=== PATIENT | male | born 1945 | race Caucasian/White ===

== ENCOUNTER → 2020-05-03 | Outpatient (CLI) | payer MEDICARE, BC ==
--- NOTE | 2020-05-03 17:10 | XR ---
EXAMINATION TYPE: XR chest 2V DATE OF EXAM: 05/03/2020 CLINICAL HISTORY: R63.4 weight loss. TECHNIQUE: Frontal and lateral view of the chest. COMPARISON: None FINDINGS: Flattening of the hemidiaphragms and prominent lung volume. The cardiomediastinal silhoue tte is within normal limits for size. There is tortuous descending thoracic aorta and calcification o f the aortic knob. Pulmonary vasculature is normal. There is no focal air space opacity, pleural effu jarad, or pneumothorax seen. The osseous structures are intact. IMPRESSION: Emphysematous changes of the lungs.
== END | disposition home or self-care (01) ==
LOC: RADXRMAIN 13:59
PROVIDERS: ATTEND Internal Medicine
DX: J43.9 Emphysema, unspecified (principal)
CPT/HCPCS: 71046

== ENCOUNTER → 2020-06-29 | Outpatient (CLI) | payer MEDICARE, BC ==
--- NOTE | 2020-06-29 15:51 | US ---
EXAMINATION TYPE: US liver DATE OF EXAM: 06/29/2020 COMPARISON: NONE CLINICAL HISTORY: R94.5 Abnormal Liver function test. EXAM MEASUREMENTS: Liver Length: 18.8 cm Gallbladder Wall: 0.2 cm CBD: 0.6 cm Right Kidney: 9.8 x 3.7 x 4.9 cm Pancreas: Obscured by bowel gas Liver: Echogenic, enlarged Gallbladder: Hydropic, stones visualized Evidence for sonographic Josue's sign: No CBD: Measuring upper limits of normal Right Kidney: No hydronephrosis. Simple appearing Cyst measuring 1.1 x 1.2 x 1.1 cm IMPRESSION: 1. Cholelithiasis 2. Right renal cyst
== END | disposition home or self-care (01) ==
LOC: RADUSWWP 07:10
PROVIDERS: ATTEND Internal Medicine
DX: K80.20 Calculus of gallbladder without cholecystitis without obstruction (principal); N28.1 Cyst of kidney, acquired
CPT/HCPCS: 76705

== ENCOUNTER → 2020-07-20 | Outpatient (CLI) | payer MEDICARE, BC ==
--- NOTE | 2020-07-20 09:18 | NM ---
Nuclear medicine hepatobiliary scan. HISTORY: Pain. DOSAGE: The patient received 8 oz ensure plus and 5.1 mCi of Technetium 99m Choletec. FINDINGS: There is normal hepatic extraction. The gallbladder is seen by 20 minutes. There is bilia ry to bowel clearance by 20 minutes. Ejection fraction is 94%. IMPRESSION: 1. No evidence of cholecystitis. 2. Ejection fraction is 94% which can occasionally be seen with hyperdynamic gallbladder. Correlate c linically.
== END | disposition home or self-care (01) ==
LOC: RADNMMAIN 06:50
PROVIDERS: ATTEND Internal Medicine
DX: K80.00 Calculus of gallbladder with acute cholecystitis without obstruction (principal)
CPT/HCPCS: 78226; A9537

== ENCOUNTER → 2021-07-20 | Outpatient (CLI) | payer MEDICARE, BC ==
[2021-07-20 14:15] LABS: African American GFR (CKD) >90 (>60 ml/min/1.73 sqM); Blood Urea Nitrogen 17 mg/dL (9-20); Non-African American GFR(CKD) 89 (>60 ml/min/1.73 sqM)
--- NOTE | 2021-07-20 15:19 | CT ---
EXAMINATION TYPE: CT urogram wo/w con DATE OF EXAM: 07/20/2021 COMPARISON: None. HISTORY: Abnormal urine cytology. CT DLP: 1812 mGycm, Automated Exposure Control for Dose Reduction was Utilized. CONTRAST: CT scan of the abdomen and pelvis is performed without oral and without and with IV Contrast, patient injected with 100ml mL of Isovue 300. Urogram protocol with 3-D reconstructed images created on a in dependent workstation and reviewed. FINDINGS: KUB: There is a 5 mm calculus in the left kidney laterally upper to midpole level coronal image 38. N o right-sided nephrolithiasis. Postcontrast images show symmetric cortical uptake and excretion witho ut hydronephrosis seen bilaterally. There is simple appearing 1.3 cm thin-walled cyst posteriorly in the right kidney midpole level. Incomplete opacification of the right ureter. No obvious obstructing calculus bilaterally. Bladder shows adequate distention with wall thickening upper limits of normal a nteriorly. No intraluminal calculus. LUNG BASES: Mild posterior bibasilar linear scarring and/or atelectasis. Moderate to severe right atr ial dilatation is partially imaged. LIVER/GB: Gallbladder has distended margins and is abnormally dilated measuring over 10 cm in length there are dependent tiny calcified gallstones. There is no surrounding inflammatory change. Prominent right hepatic lobe and/or mild hepatomegaly. No biliary dilatation. PANCREAS: Moderate generalized fat replaced atrophy. SPLEEN: No significant abnormality is seen. ADRENALS: No significant abnormality is seen. BOWEL: Scattered colonic diverticulosis greatest the sigmoid colon level. No acute diverticulitis. No suspicious small or large bowel dilatation. PROSTATE/SEMINAL VESICLES: Normal size prostate with central calcifications. LYMPH NODES: No greater than 1cm abdominal or pelvic lymph nodes are appreciated. OSSEOUS STRUCTURES: Osseous structures are markedly demineralized. There is fixation hardware through healed fracture left proximal femur. Facet arthropathy lower lumbar levels. OTHER: Moderate calcified plaque of the aorta extends into branch vessels.. IMPRESSION: There is a 5 mm nonobstructing calculus in the left kidney upper to mid pole level.
== END | disposition home or self-care (01) ==
LOC: RADCTMAIN 13:22
PROVIDERS: ATTEND Internal Medicine
DX: N20.0 Calculus of kidney (principal); R82.89 Other abnormal findings on cytological and histological examination of urine
CPT/HCPCS: 82565; 84520; 74178; 36415; 74400; Q9967

== ENCOUNTER 2022-01-13 09:25 | Emergency (ER) | payer MEDICARE, BC ==
[2022-01-13 09:36] VITALS: BP 126/84; PULSE 104; RESP 18; TEMP 97.8
[2022-01-13] MEDS ORDERED: DIPH,PERTUS(ACELL)TETVAC-LF 0.5 ML VIAL IM ONE (09:56)
--- NOTE | 2022-01-13 09:59 | ED ---
General Adult HPI - General Chief complaint: Extremity Injury, Lower Stated complaint: Rt Leg Lacertion/Rt foot Edema Time Seen by Provider: 01/13/22 09:40 Source: patient, RN notes reviewed, old records reviewed Mode of arrival: ambulatory Limitations: no limitations - History of Present Illness Initial comments: This is a 76-year-old male presents emergency Department after he scraped his right lateral leg 4 days ago. Patient states he woke up this morning and noted his foot was swollen his leg and calf thigh area are not swollen at all. Patient states the wound appears to be healing fine though he does not have a tetanus shot. Patient states he doesn't want a splint swollen. When asked the patient if he's been wearing any Julius said he had a knee brace on the way down to his mid calf and just took it off recently. Patient is confident now that that is the cause of his foot swelling - Related Data Allergies Allergy/AdvReac Type Severity Reaction Status Date / Time No Known Allergies Allergy Verified 01/13/22 09:36 Review of Systems ROS Statement: Those systems with pertinent positive or pertinent negative responses have been documented in the HPI. ROS Other: All systems not noted in ROS Statement are negative. Past Medical History Past Medical History: No Reported History History of Any Multi-Drug Resistant Organisms: None Reported Past Surgical History: Appendectomy, Orthopedic Surgery Additional Past Surgical History / Comment(s): ortho- left femur Past Psychological History: No Psychological Hx Reported Smoking Status: Never smoker Past Alcohol Use History: None Reported Past Drug Use History: Marijuana General Exam - General Exam Comments Initial Comments: GENERAL Patient is well-developed and well-nourished. Patient is in mild distress. EYES Patient's pupils are equal and round. Extraocular motion is intact SKIN Patient has a superficial abrasion the lateral aspect of the lower leg it appears to be healing fine no signs of infection. NEURO The patient is alert and oriented 3 PYSCH Patient has normal interpersonal interactions. MUSCULOSKELETAL Patient has some mild swelling to the foot no swelling of the leg knee or thigh. Limitations: no limitations Course Vital Signs 01/13/22 09:30 Temperature 97.8 F Pulse Rate 104 H Respiratory 18 Rate Blood Pressure 126/84 O2 Sat by Pulse 99 Oximetry Disposition Clinical Impression: Superficial abrasion, Foot swelling Disposition: HOME SELF-CARE Condition: Good Instructions (If sedation given, give patient instructions): Abrasion (ED) Is patient prescribed a controlled substance at d/c from ED?: No Referrals: Rula Rodriguez MD [Primary Care Provider] - 1-2 days Time of Disposition: 09:58
== END 2022-01-13 10:16 | disposition home or self-care (01) ==
LOC: EC 09:25
DX: T14.8XXA Other injury of unspecified body region, initial encounter (principal); M79.89 Other specified soft tissue disorders; F12.90 Cannabis use, unspecified, uncomplicated
CPT/HCPCS: 90471; 90715; 99283

== ENCOUNTER → 2022-02-26 | Outpatient (CLI) | payer MEDICARE, BC ==
--- NOTE | 2022-02-26 10:56 | XR ---
Left shoulder HISTORY: Chronic pain 3 views of left shoulder Bone mineralization is reduced. There is arthropathy at the glenohumeral joint, acromion clavicular j oint. Alignment is maintained. Left lung apex as visualized is normal. Aorta is dense. There may be d istal acromial spur. IMPRESSION: Osteoarthritic changes of the left shoulder. Correlate for possible impingement.
== END | disposition home or self-care (01) ==
LOC: RADXRMAIN 10:34
PROVIDERS: ATTEND Internal Medicine
DX: M77.8 Other enthesopathies, not elsewhere classified (principal)

== ENCOUNTER → 2023-07-03 | Outpatient (CLI) | payer MEDICARE, BC ==
--- NOTE | 2023-07-03 11:25 | XR ---
EXAMINATION TYPE: XR femur LT, XR knee complete LT DATE OF EXAM: 07/03/2023 11:12 AM CLINICAL INDICATION:Male, 77 years old with history of M893.8X5 PAIN LT FEMUR; COMPARISON: None TECHNIQUE: XR femur LT, XR knee complete LT examined in Frontal and lateral projections. FINDINGS: Curvilinear lucency through the lateral aspect of the knee involving the tibial plateau. Th ere Intramedullary mariluz in the left femur which appears intact. Degeneration changes of the knee and h ip which are demonstrate joint space narrowing and osteophyte formation. Severe atherosclerosis of th e arterial vasculature. IMPRESSION: 1. Left lateral tibial plateau curve curvilinear lucency which could represent nondisplaced fracture . CT imaging of the knee is recommended. 2. The left femur fixation rods. .
--- NOTE | 2023-07-03 12:08 | XR ---
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 TECHNIQUE: XR lumbar spine with bend/flex - Frontal, lateral and coned in L5-S1 lateral views of the spine. FINDINGS: No evidence of any acute osseous pathology. No evidence of loss of vertebral body height i s seen. There is normal alignment of the lumbar vertebral bodies. Mild scattered disc space narrowing . Multilevel marginal osteophyte formation throughout the visualized spine. There is facet joint arth ropathy throughout the spine. Scattered at least mild neural foraminal stenosis. Moderate this course of the arterial vasculature. Multiple gallstones project in the gallbladder lumen. IMPRESSION: 1. No acute fracture. 2. Moderate multilevel disc degeneration.
--- NOTE | 2023-07-03 12:15 | US ---
EXAMINATION TYPE: US arterial LE single level DATE OF EXAM: 07/03/2023 10:48 AM CLINICAL INDICATION: Male, 77 years old with history of I73.9 PERIPHERAL VASCULAR DISEASE, UNSPECIFIE D; Left leg pain History of: Smoker: no Hypertension: yes Diabetic: no Hyperlipidemia: no TIA/CVA: no Previous Vascular Surgery: no [place]: no Vascular Ulcers: no Claudication: no Gangrene: no Doppler Waveforms: Right: Multiphasic Left: Multiphasic Right Brachial Pressure: 146 Left Brachial Pressure: 142 Ankle-Brachial Indices: Right: 1.12 Left: 1.10 Toe Brachial Indices: Right: 0.49 Left: 0.53 IMPRESSION: Severe bilateral peripheral vascular disease by toe brachial index. 1. Ankle-brachial indices are within normal limits.
== END | disposition home or self-care (01) ==
LOC: RADUSWWP 10:18
PROVIDERS: ATTEND Internal Medicine
DX: M51.36 Other intervertebral disc degeneration, lumbar region (principal); M89.8X5 Other specified disorders of bone, thigh; I73.9 Peripheral vascular disease, unspecified; M47.816 Spondylosis without myelopathy or radiculopathy, lumbar region
CPT/HCPCS: 72114; 93922

== ENCOUNTER → 2023-07-18 | Outpatient (CLI) | payer MEDICARE, BC ==
--- NOTE | 2023-07-18 16:45 | CT ---
EXAMINATION TYPE: CT femur LT wo con CT DLP: 1669.1 mGycm, Automated exposure control for dose reduction was used. DATE OF EXAM: 07/18/2023 3:44 PM COMPARISON: . Extremity radiograph 07/03/2023 CLINICAL INDICATION:Male, 77 years old with history of M89.8X5 OTHER SPECIFIED DISORDERS OF BONE, THI GH; PHH, Chronic left femur pain, fx x 20+years TECHNIQUE: Axial images were obtained of the CT femur LT wo con, Additional coronal and sagittal refo rmatted images and soft tissue and bone window were obtained for review. 3-D reconstruction was creat ed on a separate workstation. Contrast used: mL of , (None if empty) Oral contrast used: (None if empty) FINDINGS: Left hip arthroplasty changes with fixation screw in appropriate position. There is degener ation changes of the left hip. Intramedullary mariluz is also present. There is no evidence of fracture. Curvilinear lucency within the tibial plateau on prior 07/03/2023 radiograph is not confirmed on CT imaging suggesting artifact and/or osseous demineralization change. There is diffuse osseous deminera lization. Scattered colonic diverticula are present. Mild osteophyte formation acetabulum which is pr esent. Severe atherosclerotic arteriovascular. There is degeneration changes at the knee with osteoph yte formation and joint space tearing. Cystic change in the tibial plateau. IMPRESSION: 1. Post fixation changes to the left femur. Hardware appears intact. No evidence of fracture. Diffus e osseous demineralization. 2. Mild left hepatic steatosis. 3. Tibial plateau cystic changes which could be further evaluated with MRI if not be performed. 4. Curvilinear lucency within the tibial plateau and prior 07/03/2023 radiograph is not definitely co nfirmed on CT imaging. Correlate with point tenderness.
== END | disposition home or self-care (01) ==
LOC: RADCTMAIN 14:52
PROVIDERS: ATTEND Internal Medicine
DX: M89.8X5 Other specified disorders of bone, thigh (principal); K76.0 Fatty (change of) liver, not elsewhere classified

== ENCOUNTER → 2023-08-02 | Outpatient (CLI) | payer MEDICARE, BC ==
--- NOTE | 2023-08-04 15:30 | MR ---
EXAMINATION TYPE: MR lumbar spine wo con DATE OF EXAM: 08/02/2023 COMPARISON: None HISTORY: 78-year-old male M54.50, Lower back pain, into left thigh. TECHNIQUE: Multiplanar, multisequence images of the lumbar spine were acquired without IV contrast. FINDINGS: * Nonspecific distention of the cisterna chyli. * 2.0 cm cortical cyst posterior right kidney. * Ectatic upper abdominal aorta 2.6 cm. * Mildly aneurysmal lower abdominal aorta at 3.1 cm. * There is a markedly hydropic gallbladder measuring up to 5.2 cm wide. Vertebral body heights are preserved and alignment is maintained. Heterogeneous marrow signal suggests prominent red marrow hyperplasia. Additional scattered fatty mat caitlyn hemangioma such as that L2, L3, and S1 vertebral bodies. Conus medullaris is normal. Scattered [id number] degenerative disc disease with desiccated disks in variable disc space oli rowing. Minimal bulging discs are also present. Posterior annular fissure noted at L1-L2 and L2-L3. No large focal disc herniation or significant spinal canal stenosis. Scattered mild facet degenerative change. On the right, changes result in mild neuroforaminal narrowing L1-S1 levels. On the left, changes result in mild neuroforaminal narrowing at L1-L2. Intraforaminal disc bulge at L 4-L5 may abut the traversing left L5 nerve root at this level. IMPRESSION: 1. No large focal disc herniation or significant spinal canal stenosis. Mild to moderate multilevel d egenerative disc disease is present. Small posterior annular fissures at L1-L2 and L2-L3. 2. Variable mild neuroforaminal narrowing as outlined above. An intraforaminal disc bulge at L4-L5 on the left may abut the traversing left L5 nerve root.
== END | disposition home or self-care (01) ==
LOC: RADMRIMAIN 11:19
PROVIDERS: ATTEND Orthopaedic Surgery
DX: M54.50 Low back pain, unspecified (principal); M51.36 Other intervertebral disc degeneration, lumbar region; M48.061 Spinal stenosis, lumbar region without neurogenic claudication
CPT/HCPCS: 72148

== ENCOUNTER → 2023-08-15 | Outpatient (CLI) | payer MEDICARE, BC ==
[2023-08-15 09:04] VITALS: BP 156/92; PULSE 99; RESP 15; TEMP 98.5
--- NOTE | 2023-08-15 12:30 | P.PAINPG ---
PQRS Measure Charge Sheet Comment: HISTORY OF PRESENT ILLNESS: A 78 yr old male as a referral from Dr Rodriguez presents today w severe and chronic LBP > 10 yrs secondary to DDD, spondylosis and facet arthropathy without myelopathy for evaluation. Pt states pain level is provoked at 1 /10 in intensity, constant, localized in the lower lumbar spine, predominantly axial, achy in character w occasional shooting pain towards the LEs. Pain is provoked by bending, lifting. Pain is alleviated by medications, repositioning and rest. PMH: OA, HTN, aFib, Hyperlipidemia, MDD PSH: Appendectomy (1959), L Femur ORIF (2011), LUE ORIF (2011), Colonoscopy (2014) SH: No tobacco use, No ETOH abuse, Cannabis use. Oldest of 16 siblings. FH: Fa- CHF/ age 55. Mo- Pancreatic CA/ age 54. All: See list Meds: See list REVIEW OF ORGAN SYSTEMS: CONSTITUTIONAL: No fevers or chills. No recent weight loss. NEUROLOGICAL: + numbness and tingling along the distal extremities. No seizure disorders or headaches. MUSCULOSKELETAL: + pain PSYCHIATRIC: Denies current depression or suicidal thoughts. Physical Examinations : Constitutional : Cooperative , not in acute distress . Neurologic : Cranial nerve II to XII intact. No focal neurological deficits. Psychiatric : alert & oriented x 3. Matching mood & appropriate affect. Judgment & insight intact. Musculoskeletal : Cervical Spine Motor strength in the deltoid and biceps: Normal right side. Normal Left side Motor strength biceps and the wrist extensors: Normal right side . Normal left side Motor strength in the triceps muscle: Normal right side. Normal left side Deep tendon reflexes: Normal at the biceps. Normal at Brachioradialis. Normal at triceps Vertebral body tenderness to deep palpation over Cervical facet loading test: positive bilaterally Spurling test: positive bilaterally Neck distraction test: positive bilaterally Kay sign: positive bilaterally Lumbar spine Motor strength lower extremities ,thigh and legs 5/5 Right side , 5/5 Left side Deep tendon reflexes : Normal Knee Jerk. Normal Ankle Jerk Vertebral body tenderness over L4 Cast Test positive Lumbar facet Loading Test: positive Right / positive Left Range of motion of the lumbar spine Flexion 30 degrees, extension 10 degrees Straight Leg Raise test: Left/ Right positive at degree Jass test: positive right / positive left. Severe tenderness over the Sacroiliac joint on the Right / Left sides Gaenslen test: positive bilaterally Seated flexion test: positive bilaterally. Sacral spine : Severe tenderness over the Sacroiliac joint: right side / left side Range of motion: Flexion of the lumbar spine <60 degrees Range of motion: Extension of the lumbar spine <20 degrees Gaenslen's Test positive Jass test: positive right side / left side Thigh Thrust Test Sacral Thrust Test Imaging: Noncontrast of the lumbar spine from 08/02/2023 reviewed Assessment/ Plan : L4-L5 Disc Bulge Will manage residual pain and may RTC on an as needed basis. All questions answered. I have spent greater than 30 minutes on patient care today. Dr Pinto was available by phone for the evaluation of this patient. The time was used to review the medical records including relevant urine studies and Prescription history (MAPs), review of the available imaging, evaluation and examination of the patient, coordination of care with the medical staff and if applicable referring physicians, as well as creation of the medical record Controlled Substance Measures - Controlled Substance Measures Is patient prescribed a controlled substance at discharge?: No
== END ==
LOC: PNWHC3 08:21
PROVIDERS: ATTEND Specialist
DX: M48.061 Spinal stenosis, lumbar region without neurogenic claudication (principal); M51.36 Other intervertebral disc degeneration, lumbar region; M47.816 Spondylosis without myelopathy or radiculopathy, lumbar region; G89.29 Other chronic pain; M51.26 Other intervertebral disc displacement, lumbar region; M19.90 Unspecified osteoarthritis, unspecified site; I10 Essential (primary) hypertension; I48.91 Unspecified atrial fibrillation; E78.5 Hyperlipidemia, unspecified; F32.9 Major depressive disorder, single episode, unspecified; F12.90 Cannabis use, unspecified, uncomplicated
CPT/HCPCS: 99211

== ENCOUNTER 2023-11-01 11:47 | Emergency (ER) | payer MEDICARE, BC ==
[2023-11-01] MEDS: DIPH,PERTUS(ACELL)TETVAC-LF 0.5 ML VIAL IM ONE (12:38)
[2023-11-01 13:00] VITALS: RESP 18
[2023-11-01] MEDS: LIDOCAINE 1% INJ 10MG/ML (20 ML MDV) SQ ONE (13:06)
[2023-11-01] MEDS: ACETAMINOPHEN TAB 325 MG TAB PO STA (13:10)
--- NOTE | 2023-11-01 13:46 | ED ---
Animal Bite HPI - General Chief Complaint: Animal Bite Stated Complaint: Dog Bite Time Seen by Provider: 11/01/23 13:44 Source: patient, family, RN notes reviewed Mode of arrival: EMS Limitations: no limitations - History of Present Illness Initial Comments: 78-year-old male presented to the ER with a chief complaint of dog bite. Patient reports he was walking at a nearby park and walked by a woman with 2 dogs. He reports when passing the woman the [place] malinois bit his right calf. He denies any limited range of motion or paresthesias. He denies any other injuries or complaints. Patient does take Eliquis. Tetanus status unknown. - Related Data Home Medications Medication Instructions Recorded Confirmed Apixaban [Eliquis] 5 mg PO BID 11/01/23 11/01/23 Atorvastatin [Lipitor] 40 mg PO DAILY 11/01/23 11/01/23 Metoprolol Succinate (ER) [Toprol 25 mg PO DAILY 11/01/23 11/01/23 Xl] Previous Rx's Medication Instructions Recorded Amoxic-Pot Clav 875-125Mg 1 tab PO Q12HR #20 tab 11/01/23 [Augmentin 875-125] Allergies Allergy/AdvReac Type Severity Reaction Status Date / Time No Known Allergies Allergy Verified 11/01/23 13:47 Review of Systems ROS Statement: Those systems with pertinent positive or pertinent negative responses have been documented in the HPI. ROS Other: All systems not noted in ROS Statement are negative. Past Medical History Past Medical History: No Reported History History of Any Multi-Drug Resistant Organisms: None Reported Past Surgical History: Appendectomy, Orthopedic Surgery Additional Past Surgical History / Comment(s): ortho- left femur Past Psychological History: No Psychological Hx Reported Smoking Status: Never smoker Past Alcohol Use History: None Reported Past Drug Use History: Marijuana General Exam Limitations: no limitations General appearance: alert, in no apparent distress Head exam: Present: atraumatic, normocephalic, normal inspection Respiratory exam: Present: normal lung sounds bilaterally. Absent: respiratory distress, wheezes, rales, rhonchi, stridor Cardiovascular Exam: Present: regular rate, normal rhythm, normal heart sounds. Absent: systolic murmur, diastolic murmur, rubs, gallop, clicks Extremities exam: Present: normal inspection, full ROM, normal capillary refill. Absent: tenderness, pedal edema, joint swelling, calf tenderness Neurological exam: Present: alert, oriented X3, CN II-XII intact Skin exam: Present: warm, dry, normal color, other (4 x 3 wound to lateral right calf. minimal active bleeding. Muscle and fascia exposed but intact. Patient has full active range of motion of ankle and digits. 2+ right dorsalis pedis pulse. Sensation intact.) Course Vital Signs 11/01/23 11/01/23 11:52 14:30 Temperature 98.1 F Pulse Rate 100 89 Respiratory 18 18 Rate Blood Pressure 160/101 145/89 O2 Sat by Pulse 99 99 Oximetry - Reevaluation(s) Reevaluation #1: 11/01/23 12:[address] Castillo, destination specialist general surgeon, who advised on consulting orthopedics. 11/01/23 12:[address] Rivera, destination specialist orthopedics, who advised on loose closure with 5 sutures approximating skin to muscle. He recommended to keep wound open and close follow-up outpatient. Procedures - Laceration Laceration #1 Consent Obtained: verbal consent Indication: laceration Site: lower extremity Size (cm): 4 (4 x 3 bite wound ) Description: avulsion Anesthetic Used: lidocaine 1% Anesthesia Technique: local infiltration Amount (mls): 10 Pre-repair: wound explored, irrigated extensively, deep structures intact Type of Sutures: vicryl Size of Sutures: 3-0 Number of Sutures: 5 Technique: simple, interrupted Patient Tolerated Procedure: well, no complications Additional Comments: wound approximated per Dr. Rivera's instruction. Medical Decision Making - Medical Decision Making Was pt. sent in by a medical professional or institution (, PA, QUALITATIVE RESEARCHER, urgent care, hospital, or snf...) When possible be specific @ -No Did you speak to anyone other than the patient for history (EMS, parent, family, police, friend...)? What history was obtained from this source @ -Police aiding with HPI. Did you review nursing and triage notes (agree or disagree)? Why? @ -I reviewed and agree with nursing and triage notes Were old charts reviewed (outside hosp., previous admission, EMS record, old EKG, old radiological studies, urgent care reports/EKG's, snf records)? Report findings @ -No old charts were reviewed Differential Diagnosis (chest pain, altered mental status, abdominal pain women, abdominal pain men, vaginal bleeding, weakness, fever, dyspnea, syncope, headache, dizziness, GI bleed, back pain, seizure, CVA, palpatations, mental health, musculoskeletal)? @ -Differential Musculoskeletal: Muscular strain, contusion, ligament sprain, fracture, arthritis, septic arthritis, bursitis, cellulitis, muscle spasm, nerve compression, DVT, arterial occlusion, herpes zoster, electrolyte abnormality, tumor.... This is not meant to be in all inclusive list EKG interpreted by me (3pts min.). @ -None X-rays interpreted by me (1pt min.). @ -None done CT interpreted by me (1pt min.). @ -None done U/S interpreted by me (1pt. min.). @ -None done What testing was considered but not performed or refused? (CT, X-rays, U/S, labs)? Why? @ -None What meds were considered but not given or refused? Why? @ -None Did you discuss the management of the patient with other professionals (professionals i.e. , PA, QUALITATIVE RESEARCHER, lab, RT, psych nurse, psychiatric social worker, negative restorer, teacher, [employer] revenue officer, porter sample case)? Give summary @ -Yes, case discussed with Dr. Castillo, on-call general surgery, who advised an orthopedic consult. I also discussed this case with Dr. Rivera, on-call orthopedic, who advised on loose approximation with 5 sutures and to keep wound open. He recommended outpatient follow-up next week. Was smoking cessation discussed for >3mins.? @ -No Was critical care preformed (if so, how long)? @ -No Were there social determinants of health that impacted care today? How? (Homelessness, low income, unemployed, alcoholism, drug addiction, transportation, low edu. Level, literacy, decrease access to med. care, custodial, rehab)? @ -No Was there de-escalation of care discussed even if they declined (Discuss DNR or withdrawal of care, Hospice)? DNR status @ -No What co-morbidities impacted this encounter? (DM, HTN, Smoking, COPD, CAD, Cancer, CVA, ARF, Chemo, Hep., AIDS, mental health diagnosis, sleep apnea, morbid obesity)? @ -On Eliquis Was patient admitted / discharged? Hospital course, mention meds given and rou te, prescriptions, significant lab abnormalities, going to OR and other pertinent info. @ -Discharge. 78 year old male presenting to the ER via EMS with a chief complaint of a dog bite. History and physical exam completed. Vitals stable. Patient no signs of acute distress and nontoxic-appearing. There was a 4 x 3 wound to right lateral calf. Minimal active bleeding. Fascia and muscle expose d but appear to be intact. Patient has full active range of motion of ankle and digits. Right lower extremity neurovascular intact. He denied any other injuries or complaints. I discussed this case with Dr. Rivera, destination specialist orthopedics, who advised on loose approximation with 5 sutures and to keep wound open to prevent infection. Wound intensively irrigated with iodine and sterile saline. Wound edges approximated and sutured to exposed muscle using 5 simple interrupted sutures, per Dr. Rivera. Wound dressed with Adaptic, 4 x 4's in a compressive dressing. Tetanus updated. Patient will be started on Augmentin. I instructed patient to keep dressing in placed for 48 hours and to follow-up with orthopedics as soon as possible. Strict return parameters discussed at length. Patient discharged in stable condition with follow-up to orthopedics, referral given. Patient and verbally expressed understanding and agreement with care plan. Case discussed with ED attending, Dr. Helms. Undiagnosed new problem with uncertain prognosis? @ -No Drug Therapy requiring intensive monitoring for toxicity (Heparin, Nitro, Insulin, Cardizem)? @ -No Were any procedures done? @ -No Diagnosis/symptom? @ -Dog bite Acute, or Chronic, or Acute on Chronic? @ -Acute Uncomplicated (without systemic symptoms) or Complicated (systemic symptoms)? @ -Uncomplicated Side effects of treatment? @ -No Exacerbation, Progression, or Severe Exacerbation? @ -No Poses a threat to life or bodily function? How? (Chest pain, [place], [place], pneumonia, PE, COPD, DKA, ARF, appy, cholecystitis, CVA, Diverticulitis, Homicidal, Suicidal, threat to staff... and all critical care pts) @ -Low likelihood Disposition Clinical Impression: Dog bite Disposition: HOME SELF-CARE Condition: Stable Instructions (If sedation given, give patient instructions): Animal Bite (ED) Additional Instructions: Please leave bandage in place for 48 hours. Do not shower until after first dressing change. Complete full course of Augmentin. Follow-up with Dr. Rivera early next week. Return to the ER for any new or worsening concerns. Prescriptions: Amoxic-Pot Clav 875-125Mg [Augmentin 875-125] 1 tab PO Q12HR #20 tab Is patient prescribed a controlled substance at d/c from ED?: No Referrals: Rula Rodriguez MD [Primary Care Provider] - 1-2 days Jay Rivera DO [Doctor of Osteopathic Medicine] - 1-2 days Time of Disposition: 13:45
[2023-11-01 14:59] VITALS: BP 145/89; PULSE 89; TEMP 98.1
== END 2023-11-01 15:10 | disposition home or self-care (01) ==
LOC: EC 11:47
DX: S81.851A Open bite, right lower leg, initial encounter (principal); Z23 Encounter for immunization; Z79.01 Long term (current) use of anticoagulants; W54.0XXA Bitten by dog, initial encounter; Y92.830 Public park as the place of occurrence of the external cause; Y93.01 Activity, walking, marching and hiking
CPT/HCPCS: 90715; 12002; 90471; 99284; J2001

== ENCOUNTER 2023-11-09 16:11 | Inpatient (IN) | payer MEDICARE, BC ==
--- NOTE | 2023-11-09 17:10 | ED ---
Fall HPI - General Chief Complaint: Fall Stated Complaint: FALL Time Seen by Provider: 11/09/23 16:18 Source: patient, EMS Mode of arrival: EMS - History of Present Illness Initial Comments: 78-year-old male presenting to the ED status post fall. Patient is on Eliquis. Patient states that he stood up from his chair and was attempting to use his walker and walker caught the edge of the carpet causing him to fall/onto his left side. Fell onto the couch and then onto the carpet reporting that the brunt of the fall was a sore by his left shoulder. Unsure if he hit his head at this time. However denies LOC. Now notes pain of the left shoulder and left hip/left leg. Of note, patient seen here approximately a week ago due to a right calf dog bite. Has been taking antibiotics for this and is seeing wound care for this. Also is following up with surgery on Saturday secondary to this. Denies increasing pain of the right calf. Denies fever or chills. Denies any preceding chest pain, shortness of breath, dizziness prior to the fall. At this time has no other complaints other than the pain to his left shoulder and left hip/leg. - Related Data Home Medications Medication Instructions Recorded Confirmed Apixaban [Eliquis] 5 mg PO DAILY 11/01/23 11/09/23 Atorvastatin [Lipitor] 40 mg PO DAILY 11/01/23 11/09/23 Metoprolol Succinate (ER) [Toprol 25 mg PO DAILY 11/01/23 11/09/23 Xl] Previous Rx's Medication Instructions Recorded Amoxic-Pot Clav 875-125Mg 1 tab PO Q12HR #20 tab 11/01/23 [Augmentin 875-125] Allergies Allergy/AdvReac Type Severity Reaction Status Date / Time No Known Allergies Allergy Verified 11/09/23 19:41 Review of Systems ROS Statement: Those systems with pertinent positive or pertinent negative responses have been documented in the HPI. ROS Other: All systems not noted in ROS Statement are negative. Past Medical History Past Medical History: No Reported History History of Any Multi-Drug Resistant Organisms: None Reported Past Surgical History: Appendectomy, Orthopedic Surgery Additional Past Surgical History / Comment(s): ortho- left femur Past Psychological History: No Psychological Hx Reported Smoking Status: Never smoker Past Alcohol Use History: None Reported Past Drug Use History: Marijuana General Exam General appearance: alert, in no apparent distress Head exam: Present: atraumatic, normocephalic, other (No schmitt signs or raccoon's eyes.) Eye exam: Present: normal appearance, PERRL, EOMI Neck exam: Present: normal inspection Respiratory exam: Present: normal lung sounds bilaterally Cardiovascular Exam: Present: regular rate GI/Abdominal exam: Present: soft. Absent: distended, tenderness, guarding, rebound, rigid, normal bowel sounds Extremities exam: Present: tenderness (Right calf is dressed. Upon removing dressing there is a well-healing wound with no surrounding warmth, erythema.), other (Pain to palpation over the left shoulder however no crepitus, step-off, or obvious deformity. Pelvis stable upon rocking. To palpation over the mid left leg. No obvious step-off, deformity. Radial pulses/DP/PT pulses intact bilaterally.) Back exam: Present: normal inspection, other (No midline spinal tenderness to palpation.) Neurological exam: Present: alert, oriented X3 Skin exam: Present: warm, dry Course Vital Signs 11/09/23 16:37 Temperature 97.4 F L Pulse Rate 86 Respiratory 16 Rate Blood Pressure 123/84 O2 Sat by Pulse 98 Oximetry Medical Decision Making - Medical Decision Making Was pt. sent in by a medical professional or institution ([facility] [place], KILN PACKER, urgent care, hospital, or snf...) When possible be specific @ -No Did you speak to anyone other than the patient for history (EMS, parent, family, police, friend...)? What history was obtained from this source @ -No Did you review nursing and triage notes (agree or disagree)? Why? @ -I reviewed and agree with nursing and triage notes Were old charts reviewed (outside hosp., previous admission, EMS record, old EKG, old radiological studies, urgent care reports/EKG's, snf records)? Report findings @ -Prior chart reviewed. For further details please see HPI. Differential Diagnosis (chest pain, altered mental status, abdominal pain women, abdominal pain men, vaginal bleeding, weakness, fever, dyspnea, syncope, headache, dizziness, GI bleed, back pain, seizure, CVA, palpatations, mental health, musculoskeletal)? @ -Differential Musculoskeletal Muscular strain, contusion, ligament sprain, fracture, arthritis, septic arthritis, bursitis, cellulitis, muscle spasm, nerve compression, DVT, arterial occlusion, herpes zoster, electrolyte abnormality, tumor.... This is not meant to be in all inclusive list EKG interpreted by me (3pts min.). @ -None X-rays interpreted by me (1pt min.). @ -X-ray of the pelvis and femur interpreted by me. X-ray of the of the pelvis reveals no evidence of acute finding. X-ray of the femur shows a left hip intact with intramedullary mariluz and dynamic compression screws in the proximal femur which appears similar to prior. However distally there is an oblique minimally displaced fracture lucency of the mid to distal femoral shaft which is new. The site of this fracture is transverse by the long intramedullary mariluz which began in the proximal femur. Hardware appears intact. X-ray of the chest and shoulder pending. CT interpreted by me (1pt min.). @ -CT brain and cervical spine interpreted me which revealed no evidence of acute finding. U/S interpreted by me (1pt. min.). @ -None done What testing was considered but not performed or refused? (CT, X-rays, U/S, labs)? Why? @ -None What meds were considered but not given or refused? Why? @ -None Did you discuss the management of the patient with other professionals (professionals i.e. , PA, KILN PACKER, lab, RT, psych nurse, public health social worker, hair sample matcher, teacher, disability hearing officer, case advocate)? Give summary @ -Case discussed with Dr. Jackson of orthopedics who advises knee immobilizer and shoulder sling and will see the patient tomorrow. Was smoking cessation discussed for >3mins.? @ -No Was critical care preformed (if so, how long)? @ -No Were there social determinants of health that impacted care today? How? (Homelessness, low income, unemployed, alcoholism, drug addiction, dickinson sportation, low edu. Level, literacy, decrease access to med. care, long term, rehab)? @ -No Was there de-escalation of care discussed even if they declined (Discuss DNR or withdrawal of care, Hospice)? DNR status @ -No What co-morbidities impacted this encounter? (DM, HTN, Smoking, COPD, CAD, Cancer, CVA, ARF, Chemo, Hep., AIDS, mental health diagnosis, sleep apnea, morbid obesity)? @ -None Was patient admitted / discharged? Hospital course, mention meds given and route, prescriptions, significant lab abnormalities, going to OR and other pertinent info. @ -Admission 78-year-old male presented to the ED status post mechanical fall on Eliquis. Imaging studies reviewed. CT brain and cervical spine revealed no evidence of acute finding. X-ray is significant for a fracture of the distal femur. Case discussed with orthopedics. Patient will be admitted with knee immobilizer and shoulder sling. Plan of care discussed with patient and family who are in agreement. Undiagnosed new problem with uncertain prognosis? @ -No Drug Therapy requiring intensive monitoring for toxicity (Heparin, Nitro, Insulin, Cardizem)? @ -No Were any procedures done? @ -No Diagnosis/symptom? @ -Status post mechanical fall, distal femur fracture Acute, or Chronic, or Acute on Chronic? @ -Acute Uncomplicated (without systemic symptoms) or Complicated (systemic symptoms)? @ -Uncomplicated Side effects of treatment? @ -No Exacerbation, Progression, or Severe Exacerbation? @ -No Poses a threat to life or bodily function? How? (Chest pain, [place], [place], pneumonia, PE, COPD, DKA, ARF, appy, cholecystitis, CVA, Diverticulitis, Homicidal, Suicidal, threat to staff... and all critical care pts) @ -Unlikely at this time Disposition Clinical Impression: Femoral distal fracture Disposition: ADMITTED IP TO THIS [facility] Condition: Good Referrals: Rula Rodriguez MD [Primary Care Provider] - 1-2 days Time of Disposition: 21:16
[2023-11-09] MEDS: ACETAMINOPHEN TAB 500 MG TAB PO STA (18:17)
[2023-11-09] MEDS: HYDROmorphone 0.5 MG/0.5 ML SYRINGE IM STA (18:19)
--- NOTE | 2023-11-09 18:22 | CT ---
EXAMINATION TYPE: CT brain leola wo con DATE OF EXAM: 11/09/2023 COMPARISON: None HISTORY: FELL/ ON THINNERS CT DLP: 1289.1 mGycm, Automated exposure control for dose reduction was used. CONTRAST: Patient injected with 0 mL of Isovue 300. CT of the brain is performed utilizing 3 mm thick sections through the posterior fossa and 3 mm thick sections through the remaining calvarium. Study is performed within 24 hours of arrival to the hospital. No abnormal hyperdensity is present to suggest an acute intracranial hemorrhage. No mass lesion is evident. No acute infarcts are evident. There are scattered. Ventricular white matter hypodensities, likely o n the basis of chronic white matter ischemic change. Ventricles and sulci are prominent for the patient age. Paranasal sinuses and mastoid air cells within the [id number] are clear. IMPRESSIONS: 1. Atrophy with mild chronic periventricular white matter ischemic type changes. 2. No acute intracranial process. Follow-up MRI can be performed as clinically indicated. CT cervical spine. COMPARISON: None CT of the cervical spine is performed in the axial plane at 2 mm thick sections. Reconstructed image s in the coronal, and sagittal plane are reviewed on the computer. No acute fractures are evident. Vertebral body alignment is normal. There is mild diffuse disc space narrowing present throughout the cervical spine. Vertebral body heights are preserved. No spinal canal stenosis is evident. Some minimal anterior vertebral body spurring is within the mid to lower cervical spine. Posterior spinal lamellar line is intact. Foraminal narrowing from uncovertebral joint hypertrophy is present through the cervical spine. IMPRESSION: 1. No acute osseous abnormality cervical spine. 2. Degenerative disc changes and foraminal stenosis within the cervical spine.
--- NOTE | 2023-11-09 20:06 | XR ---
EXAMINATION TYPE: XR femur LT DATE OF EXAM: 11/09/2023 7:20 PM CLINICAL INDICATION:Male, 78 years old with history of s/p fall, left shoulder pain, left hip/leg olena n; [facility] COMPARISON: 07/30/2023 TECHNIQUE: The left femur was examined in 4 projections. FINDINGS: Generalized osteopenia. Left hip appears intact with mild degenerative changes. Intramedullary mariluz an d dynamic compression screws in the proximal femur appear similar to prior study. The osseous structu re of the proximal femur appears intact and normally aligned with no visible fracture lucency. Farther distally, there is an oblique minimally displaced fracture lucency of the mid to distal femor al shaft which is new since 07/30/2023, but exact age is indeterminate. The site of this fracture is t raversed by the long intramedullary mariluz which began in the proximal femur. Hardware appears intact. M ild degenerative changes of the knee are also seen. Moderate arterial vascular calcifications. IMPRESSION: As above.
--- NOTE | 2023-11-09 20:10 | XR ---
EXAMINATION TYPE: XR pelvis AP view DATE OF EXAM: 11/09/2023 7:20 PM CLINICAL INDICATION:Male, 78 years old with history of s/p fall, left shoulder pain, left hip/leg olena n; [facility] COMPARISON: 07/30/2023 TECHNIQUE: The pelvis was examined in a single projection. FINDINGS: There is generalized osteopenia, possibly related to osteoporosis. Relatively mild bilateral hip and SI joint arthropathy. Degenerative changes of the SI joints and lower lumbar spine are also seen. No acute fracture lucency of the bony pelvis or proximal femurs is identified. Vascular calcifications are seen. Nonobstructive bowel gas pattern. IMPRESSION: No clear evidence of acute pelvic fracture on this single view.
[2023-11-09] MEDS ORDERED: NALOXONE 0.4 MG/ML 1 ML VIAL IV PRN (21:17)
[2023-11-09] MEDS ORDERED: ACETAMINOPHEN TAB 325 MG TAB PO PRN (21:17)
[2023-11-09] MEDS ORDERED: ONDANSETRON 4 MG/2 ML VIAL IVP PRN (21:17)
--- NOTE | 2023-11-09 21:29 | XR ---
EXAMINATION TYPE: XR chest 2V DATE OF EXAM: 11/09/2023 7:21 PM CLINICAL INDICATION:Male, 78 years old with history of s/p fall, left shoulder pain, left hip/leg olena n; [facility] COMPARISON: None TECHNIQUE: XR chest 2V. Frontal and lateral views of the chest.. FINDINGS: Lines/Tubes/Devices: No indwelling lines are seen. Heart/mediastinum: Heart appears moderately enlarged. Mediastinal contours appear within normal limit s. Moderate calcification of the aorta. Pulmonary vascularity: Not increased, Lungs/Pleura: There is no evidence of pleural effusion, focal consolidation, or pneumothorax. Mild di ffusely increased interstitial markings likely chronic changes. Hyperinflation suggesting COPD. Musculoskeletal: No acute osseous abnormality demonstrated in the limits of the exam. Moderate degen erative changes. Other findings: None. IMPRESSION: No acute cardiopulmonary abnormality.
[2023-11-09 23:43] LABS: INR 1.2 (<1.2)
[2023-11-09 23:44] LABS: Partial Thromboplastin Time 24.6 sec (22.0-30.0)
[2023-11-09] MEDS: SODIUM CHLORIDE 0.9% 1,000 ML IV SCH (23:52)
[2023-11-09 23:54] LABS: Basophils % (A) 0 %; Eosinophils % (A) 0 %; HCT 39.6 % (39.0-53.0); HGB 13.3 gm/dL (13.0-17.5); Lymphocytes # (A) 1.2 k/uL (1.0-4.8); Lymphocytes % (A) 12 %; MCH 33.9 pg (25.0-35.0); MCHC 33.5 g/dL (31.0-37.0); MCV 101.4 fL (80.0-100.0); Mean Platelet Volume 10.4; Monocytes # (A) 0.5 k/uL (0-1.0); Monocytes % (A) 6 %; Neutrophils # (A) 7.6 k/uL (1.3-7.7); Neutrophils % (A) 80 %; Platelet Count 118 k/uL (150-450); RBC 3.91 m/uL (4.30-5.90); RDW 12.7 % (11.5-15.5); WBC 9.5 k/uL (3.8-10.6)
[2023-11-09 23:55] LABS: ALT 23 U/L (4-49); AST 36 U/L (17-59); African American GFR (CKD) >90 (>60 ml/min/1.73 sqM); Albumin 3.4 g/dL (3.5-5.0); Alkaline Phosphatase 101 U/L (38-126); Anion Gap 6 mmol/L; Blood Urea Nitrogen 20 mg/dL (9-20); Calcium 8.6 mg/dL (8.4-10.2); Carbon Dioxide 24 mmol/L (22-30); Chloride 107 mmol/L (98-107); Glucose 228 mg/dL (74-99); Non-African American GFR(CKD) >90 (>60 ml/min/1.73 sqM); Potassium 4.4 mmol/L (3.5-5.1); Sodium 137 mmol/L (137-145); Total Bilirubin 0.9 mg/dL (0.2-1.3); Total Protein 5.9 g/dL (6.3-8.2)
[2023-11-10] MEDS: HYDROmorphone 0.5 MG/0.5 ML SYRINGE IVP PRN (02:35)
[2023-11-10] MEDS: METOPROLOL SUCCINATE (ER) 25 MG TAB.ER.24H PO SCH (09:27)
[2023-11-10] MEDS: ATORVASTATIN 40 MG TAB PO SCH (09:27)
[2023-11-10] MEDS: AMOXIC-POT CLAV 875-125MG 1 EACH TAB PO SCH (09:27)
[2023-11-10] MEDS ORDERED: APIXABAN 5 MG TAB PO SCH (10:15)
[2023-11-10] MEDS: APIXABAN 5 MG TAB PO ONE (10:52)
--- NOTE | 2023-11-10 12:21 | P.HPOR ---
History of Present Illness H&P Date: 11/10/23 Chief Complaint: left lower extremity pain Patient is a 78-year-old male who presents to the emergency department status post fall. Patient was seen in the ER this morning present with /family member during encounter. Patient states that he still up from a chair at times and uses a walker when the walker caught the edge of the carpet he then fell landing onto his left lower extremity. Patient also mentions he hit his left shoulder. Patient does not recall if he has had. Patient denies any loss of consciousness. At bedside this morning, patient is complaining of pain just above the left knee. Patient did have surgery performed several years ago where he had a mariluz placed on his left femur by a surgeon in [place]. Patient and state that about 2 weeks ago patient was seen in the ER due to having a dog bite to the right calf. Patient says this has been treated with dressings over the right calf and patient was to follow-up with Dr. Rivera this coming week in office for wound to right calf. Patient is on Eliquis currently. Patient denies chest pain, fever, shortness breath, nausea, vomiting, change in vision, loss pulse/bladder control. Past Medical History Past Medical History: No Reported History History of Any Multi-Drug Resistant Organisms: None Reported Past Surgical History: Appendectomy, Orthopedic Surgery Additional Past Surgical History / Comment(s): ortho- left femur Past Psychological History: No Psychological Hx Reported Smoking Status: Never smoker Past Alcohol Use History: None Reported Past Drug Use History: Marijuana Medications and Allergies Home Medications Medication Instructions Recorded Confirmed Type Amoxic-Pot Clav 875-125Mg 1 tab PO Q12HR #20 tab 11/01/23 11/09/23 Rx [Augmentin 875-125] Apixaban [Eliquis] 5 mg PO DAILY 11/01/23 11/09/23 History Atorvastatin [Lipitor] 40 mg PO DAILY 11/01/23 11/09/23 History Metoprolol Succinate (ER) [Toprol 25 mg PO DAILY 11/01/23 11/09/23 History Xl] Allergies Allergy/AdvReac Type Severity Reaction Status Date / Time No Known Allergies Allergy Verified 11/09/23 19:41 Physical Examination Inspection: Knee immobilizer present left lower extremity. Negative for any open fractures, skin erythema/ecchymosis/open wounds to left lower extremity. Positive for minimal swelling just proximal to the left knee. Coban wrap pr esent over the right calf. Dressing was taken down and there is evident 3 x 2 cm wound which was from dog bite. Wound is not draining at this time. Sensation: Equal, symmetric, bilaterally intact throughout the upper and lower extremities on exam. Palpation: Significant tenderness to patient just proximal to the left knee diffusely. Patient does have some radiation of pain to the proximal hip. Fair amount of tenderness patient near the wound on the right calf. Nontender to palpation throughout rest exam. Range of motion: Patient has full range of motion throughout right upper extremity exam. There is some limited range of motion of left shoulder secondary to referred stiffness and pain in the left shoulder since the fall. Full range of motion throughout left elbow and left wrist in flexion extension. Full range motion throughout right hip and right knee flexion extension. Berkley ntar motion throughout right ankle dorsiflexion/plantarflexion. Limited range of motion in the left knee and left hip secondary to injury and pain. Patient is able to wiggle digits in feet. Motor: 4/5 and right upper extremity and right lower extremity exam. 3/5 in left shoulder throughout forward elevation, abduction and external/internal rotation. 4/5 in resisted flexion extension of left elbow and left wrist. 3-/5 in resisted left ankle dorsiflexion/plantarflexion. Left knee and left hip motor exam not performed due to injury/pain. Neurovascular: Refill under 3 seconds in digits the lower extremities. Radial pulse intact, 2+ bilateral. DP pulses palpable bilaterally. Special tests: Negative Homans bilaterally. Results - Labs Labs: Abnormal Lab Results - Last 24 Hours (Table) 11/09/23 11/09/23 11/09/23 Range/Units 23:05 23:05 23:05 RBC 3.91 L (4.30-5.90) m/uL MCV 101.4 H (80.0-100.0) fL Plt Count 118 L (150-450) k/uL PT 13.0 H (10.0-12.5) sec INR 1.2 H (<1.2) Creatinine 0.49 L (0.66-1.25) mg/dL Glucose 228 H (74-99) mg/dL Total Protein 5.9 L (6.3-8.2) g/dL Albumin 3.4 L (3.5-5.0) g/dL H & H 11/09/23 Range/Units 23:05 Hgb 13.3 (13.0-17.5) gm/dL Hct 39.6 (39.0-53.0) % Coagulation 11/09/23 Range/Units 23:05 INR 1.2 H (<1.2) Result Diagrams: 11/09/23 23:05 11/09/23 23:05 - Diagnostic results Hip x-ray: report reviewed, image reviewed (X-ray of the left hip reveals prev ious IM nail is in place proximally. There is evident oblique minimally displaced fracture along the mid to distal femoral shaft. Negative for any dislocations.) Assessment and Plan Assessment: 1. Left distal femur fracture Plan: 1. Left distal femur fracture; right calf wound - X-ray of the left hip reveals previous IM nail is in place proximally. There is evident oblique minimally displaced fracture along the mid to distal femoral shaft. Negative for any dislocations. I did discuss the findings of the imaging and exam with my attending, Dr. Jackson. At this time we're not recommending any orthopedic surgical intervention. we are recommending conservative measures with the use of a IROM hinged knee brace. script left in patient chart. patient may use knee immobilizer for now to LLE. patient may toe touch weight bear w/walker while in immobilizer/brace. IROM hinged knee brace to be set at 0-20 degrees full extens ion. Pain medication as needed. Adaptic 4 x 4 and ABDs placed over right calf with Earnest bandage. Wound care consult for wound to the right calf. We will continue follow patient during her stay in hospital. 2. Appreciate medical management 3. Pain management 4. DVT ppx - eliquis 5. GI ppx - senna [facility]. [facility] with immobilizer/brace on with walker 7. encourage incentive spirometer use Time with Patient: Less than 30
--- NOTE | 2023-11-10 12:41 | P.CONS ---
History of Present Illness - Reason for Consult Fall and femoral fracture - History of Present Illness Patient is a 78-year-old male admitted after mechanical fall found to have distal femoral fracture which does not require surgery as per orthopedic surgery patient has a stabilized at this time.. Patient had a recent dog bite after which patient needed suturing to repair his right calf. Patient is presently on Augmentin started by the primary care physician probably for the right leg wound Wound wound care is following the patient. Patient has history of atrial fibrillation presently in A-fib rate controlled on Eliquis patient is resumed on Eliquis at this time. Patient's pain is well-controlled at this time REVIEW OF SYSTEMS: CONSTITUTIONAL: No fever, no malaise, no fatigue. HEENT: No recent visual problems or hearing problems. Denied any sore throat. CARDIOVASCULAR: No chest pain, orthopnea, PND, no palpitations, no syncope. PULMONARY: No shortness of breath, no cough, no hemoptysis. GASTROINTESTINAL: No diarrhea, no nausea, no vomiting, no abdominal pain. NEUROLOGICAL: No headaches, no weakness, no numbness. HEMATOLOGICAL: Denies any bleeding or petechiae. GENITOURINARY: Denies any burning micturition, frequency, or urgency. MUSCULOSKELETAL/RHEUMATOLOGICAL: As mentioned in HPI ENDOCRINE: Denies any polyuria or polydipsia. The rest of the 14-point review of systems is negative. PHYSICAL EXAMINATION: GENERAL: The patient is alert and oriented x3, not in any acute distress. Well developed, well nourished. HEENT: Pupils are round and equally reacting to light. EOMI. No scleral icterus. No conjunctival pallor. Normocephalic, atraumatic. No pharyngeal erythema. No thyromegaly. CARDIOVASCULAR: S1 and S2 present. No murmurs, rubs, or gallops. PULMONARY: Chest is clear to auscultation, no wheezing or crackles. ABDOMEN: Soft, nontender, nondistended, normoactive bowel sounds. No palpable organomegaly. MUSCULOSKELETAL: No joint swelling or deformity. EXTREMITIES: No cyanosis, clubbing, or pedal edema. Patient's right calf is wrapped and left leg has a stabilizer with I ROM hinged brace NEUROLOGICAL: Gross neurological examination did not reveal any focal deficits. SKIN: No rashes. Assessment and plan -Left distal femoral fracture for which patient is requiring increased no other surgical intervention at this time further management as per orthopedic surgery -Chronic atrial fibrillation patient is presently rate controlled patient will be resumed on home medications along with Eliquis -Right calf wound post dog bite presently on Augmentin which will be continued -Hyperlipidemia DVT prophylaxis: On Eliquis Past Medical History Past Medical History: No Reported History History of Any Multi-Drug Resistant Organisms: None Reported Past Surgical History: Appendectomy, Orthopedic Surgery Additional Past Surgical History / Comment(s): ortho- left femur Past Psychological History: No Psychological Hx Reported Smoking Status: Never smoker Past Alcohol Use History: None Reported Past Drug Use History: Marijuana Medications and Allergies Home Medications Medication Instructions Recorded Confirmed Type Amoxic-Pot Clav 875-125Mg 1 tab PO Q12HR #20 tab 11/01/23 11/09/23 Rx [Augmentin 875-125] Apixaban [Eliquis] 5 mg PO DAILY 11/01/23 11/09/23 History Atorvastatin [Lipitor] 40 mg PO DAILY 11/01/23 11/09/23 History Metoprolol Succinate (ER) [Toprol 25 mg PO DAILY 11/01/23 11/09/23 History Xl] Allergies Allergy/AdvReac Type Severity Reaction Status Date / Time No Known Allergies Allergy Verified 11/09/23 19:41 Physical Exam Vitals: Vital Signs Temp Pulse Pulse Resp BP BP Pulse Ox 11/10/23 07:53 97.9 F 95 14 130/95 95 11/10/23 06:24 97.8 F 92 17 124/79 97 11/10/23 03:51 90 18 128/90 98 11/09/23 16:37 97.4 F L 86 16 123/84 98 Intake and Output 11/09/23 11/10/23 11/10/23 22:59 06:59 14:59 Other: Voiding Method Urinal Weight 56.699 kg Results CBC & Chem 7: 11/09/23 23:05 11/09/23 23:05 Labs: Abnormal Lab Results - Last 24 Hours (Table) 11/09/23 11/09/23 11/09/23 Range/Units 23:05 23:05 23:05 RBC 3.91 L (4.30-5.90) m/uL MCV 101.4 H (80.0-100.0) fL Plt Count 118 L (150-450) k/uL PT 13.0 H (10.0-12.5) sec INR 1.2 H (<1.2) Creatinine 0.49 L (0.66-1.25) mg/dL Glucose 228 H (74-99) mg/dL Total Protein 5.9 L (6.3-8.2) g/dL Albumin 3.4 L (3.5-5.0) g/dL
[2023-11-10] MEDS: CYCLOBENZAPRINE 5 MG TAB PO SCH (18:45)
[2023-11-10] MEDS: APIXABAN 5 MG TAB PO SCH (21:24)
[2023-11-10] MEDS: HYDROcodone/APAP 7.5-325MG 1 EACH TAB PO PRN (23:37)
[2023-11-11] MEDS: SENNOSIDES 8.6 MG TAB PO SCH (08:45)
[2023-11-11] MEDS ORDERED: APIXABAN 5 MG TAB PO SCH (09:00)
--- NOTE | 2023-11-11 12:40 | P.PN ---
Subjective Progress Note Date: 11/11/23 Principal diagnosis: Left distal femur fracture Patient was seen at bedside this morning with knee immobilizer present to left lower extremity. Earnest wrap is present over right calf wound. Patient says he is looking forward to working with PT/OT this morning. Patient and are agreeable to rehab placement upon discharge from the hospital. Patient is looking forward to seeing wound care today as well with the recommendations in regards to the right calf wound. Patient says he is still been having a lot of pain to the left lower extremity since he came into the hospital. He says there is a little bit of relief while he is resting but increased pain when he tries to move lower extremity. Patient denies any other orthopedic complaints at this time. Objective - Vital Signs Vital signs: Vital Signs Temp 98.1 F 11/11/23 07:16 Pulse 103 H 11/11/23 08:00 Resp 18 11/11/23 08:00 BP 101/70 11/11/23 07:16 Pulse Ox 96 11/11/23 07:16 FiO2 Intake & Output 11/10/23 11/11/23 11/11/23 18:59 06:59 18:59 Output Total 250 Balance -250 Weight 56.699 kg Output: Urine 250 Other: Voiding Method Urinal Urinal Urinal # Voids 1 1 - Exam Inspection: Knee immobilizer present left lower extremity. Negative for any open fractures, skin erythema/ecchymosis/open wounds to left lower extremity. Positive for minimal swelling just proximal to the left knee. Coban wrap present over the right calf. Dressing was taken down and there is evident 3 x 2 cm wound which was from dog bite. Wound is not draining at this time. Sensation: Equal, symmetric, bilaterally intact throughout the upper and lower extremities on exam. Palpation: Significant tenderness to patient just proximal to the left knee diffusely. Patient does have some radiation of pain to the proximal hip. Fair amount of tenderness patient near the wound on the right calf. Nontender to palpation throughout rest exam. Range of motion: Patient has full range of motion throughout right upper extremity exam. There is some limited range of motion of left shoulder secondary to referred stiffness and pain in the left shoulder since the fall. Full range of motion throughout left elbow and left wrist in flexion extension. Full range motion throughout right hip and right knee flexion extension. Plantar motion throughout right ankle dorsiflexion/plantarflexion. Limited range of motion in the left knee and left hip secondary to injury and pain. Patient is able to wiggle digits in feet. Motor: 4/5 and right upper extremity and right lower extremity exam. 3/5 in left shoulder throughout forward elevation, abduction and external/internal rotation. 4/5 in resisted flexion extension of left elbow and left wrist. 3-/5 in resisted left ankle dorsiflexion/plantarflexion. Left knee and left hip motor exam not performed due to injury/pain. Neurovascular: Refill under 3 seconds in digits the lower extremities. Radial pulse intact, 2+ bilateral. DP pulses palpable bilaterally. Special tests: Negative Homans bilaterally. - Labs CBC & Chem 7: 11/09/23 23:05 11/09/23 23:05 Assessment and Plan Assessment: 1. Left distal femur fracture Plan: 1. Left distal femur fracture; right calf wound - X-ray of the left hip reveals previous IM nail is in place proximally. There is evident oblique minimally displaced fracture along the mid to distal femoral shaft. Negative for any dislocations. Awaiting IROM hinged knee brace. script left in patient chart. case management working on JORDAN and knee brace. patient may use knee immobilizer for now to LLE. patient may toe touch weight bear w/walker while in immobilizer/brace. IROM hinged knee brace to be set at 0-20 degrees full extension. Pain medication as needed. Adaptic 4 x 4 and ABDs placed over right calf with Earnest bandage. Wound care consult for wound to the right calf. We will continue follow patient during stay in hospital. 2. Appreciate medical management 3. Pain management -[place]; Flexeril; Tylenol 4. DVT ppx - eliquis 5. GI ppx - senna 6. PT/OT toe-[facility] weight bearing LLE with immobilizer/brace on with walker 7. encourage incentive spirometer use 8. Discharge planning -rehab pending Time with Patient: Less than 30
--- NOTE | 2023-11-11 14:21 | P.PN ---
Subjective Progress Note Date: 11/11/23 HISTORY OF PRESENT ILLNESS: This is a 78-year-old male 1 RI patient with a previous medical his tory significant for chronic atrial fibrillation, hypertension and hypertensive cardiovascular disease, hyperlipidemia, osteoarthritis as well as osteoporosis, history of chronic low back pain, patient was walking on the park about a week ago Saturday and [facility] and all of a sudden he saw another dog with a loose Nguyen attacked him and bit a piece of his calf on the right side, apparently the patient has been on anticoagulation in the form of Eliquis due to chronic atrial fibrillation, he bled a lot, EMT as well as police pilot came over to the scene, the dog child welfare specialist ran away with her dogs, and the patient was brought into the emergency department at [facility], where he had pr imary aids and he had minimal sutures placed around the edges and he was supposed to follow-up with Dr. Kovacs as an outpatient for a skin graft placement, apparently the patient had an appointment to do that today, patient was at home he was doing fine, he was sitting down in a chair he went after he was watching hockey game to go to the bathroom, and he tripped over a rug and on the floor, he landed on the left side of his body, he ended up with a tremendous amount of pain in the left femur, he ended up coming to the emergency department at [facility], he was found to have left minimally displaced femur fracture around the right that he had before, and he was admitted to the [facility] under orthopedic surgery, we were asked to see the patient for medical management. 11/10: Patient is laying down in bed in no apparent distress, he denies any chest pain, he has no shortness of breath, he has no abdominal pain, nausea vomiting or diarrhea, he has been seen by orthopedic surgery, and he was supposed to go for evaluation by Dr. Chapman for possible skin graft of the right calf area, patient pain is controlled at this time, he has been started on his medication, will continue to follow the patient very closely. REVIEW OF SYSTEMS: Constitutional: No documented fever, no chills, no night sweats. No weight change. No weakness, fatigue or lethargy. No daytime sleepiness. EENT: No headache. No blurred vision or double vision, no loss of vision. No loss of Hearing, no ringing in the ears, no dizziness. No nasal drainage or congestion. No epistaxis. No sore throat. Lungs: No shortness of breath, no cough, no sputum production. No wheezing. Reports dyspnea with activity. Cardiovascular: No chest pain, no lower extremity edema. No palpitations. No paroxysmal nocturnal dyspnea. No orthopnea. No lightheadedness or dizziness. No syncopal episodes. Abdominal: Reports no abdominal pain. No nausea, vomiting. No diarrhea. No constipation. No bloody or tarry stools reports loss of appetite. Genitourinary: No dysuria, increased frequency, urgency. No urinary retention. Musculoskeletal: No myalgias. No muscle weakness, no gait dysfunction, no frequent falls. No back pain. No neck pain. Integumentary: right calf wound with large tissue loss, no lesions. No rash or pruritus. No unusual bruising. No change in hair or nails. Neurologic: No aphasia. No facial droop. No change in mentation. No head injury. No headache. No paralysis. No paresthesia. Psychiatric: No depression. No anxiety. No mood swings. Endocrine: No abnormal blood sugars. No weight change. PHYSICAL EXAMINATION: General: 78-year-old male laying down in bed in no apparent distress. HEENT: Head is atraumatic, normocephalic, pupils were equal round reactive to l ight and recommendation, extraocular muscle movement were intact, sclera nonicteric, conjunctivae were pale, mucous membranes of the mouth are somewhat dry. Neck: Supple, no JVP, normal carotid upstroke bilaterally, no lymphadenopathy. Chest: Decreased breath sounds at the bases, few rhonchi, no expiratory wheezes, no chest wall tenderness, no intercostal retractions. Heart: First heart sound is normal, second heart sound is normal irregularly irregular, there is systolic ejection murmur 2/6 again the left sternal border. Abdomen: Soft, nontender, nondistended, positive bowel sounds. Extremities: There is no edema no calf tenderness DP +2 bilaterally. There is a large wound to the right calf area currently dressed very closely, with a large tissue loss. Minimally approximated with sutures, all the way down to the muscle. Neurologic examination: Patient is awake alert and oriented x3, cranial nerves II-12 appear grossly intact, muscle power were 5 out of 5 in upper extremities and 5 out of 5 in bilateral lower extremities, deep tendon reflexes normal bilaterally. ASSESSMENT AND PLAN: 1. Left distal femur fracture minimally displaced. Patient currently in immobilizer, he was seen in consultation by orthopedic surgery no planned surgery at this point in time, continue current pain management, continue with DVT prophylaxis at this point in time, monitor the patient very closely, 2. History of dog bite to the right calf with significant tissue loss. Patient was supposed to be seen by Dr. Rivera for skin graft placement we will consult Dr. Rust as well. 3. History of chronic atrial fibrillation. Continue patient on Eliquis 5 mg orally twice every day, continue metoprolol ER 25 mg orally once every day. 4. Hypertension and hypertensive cardiovascular disease. Continue patient on metoprolol ER 25 mg orally once every day. 5. Mixed hyperlipidemia. Continue patient on atorvastatin 40 mg once every day, monitor the patient lipid panel, keep LDL 55-70. 6. History of osteoarthritis. Stable. Continue current pain management. 7. History of spondylosis of the lumbar spine. Continue patient on current cyclobenzaprine as well as hydrocodone for pain control. 8. Constipation. Continue with current bowel care. 9. DVT prophylaxis. Continue patient on Eliquis 5 mg orally twice every day. 10. We will follow the patient with you. Objective - Vital Signs Vital signs: Vital Signs Temp 98.1 F 11/11/23 07:16 Pulse 103 H 11/11/23 08:00 Resp 18 11/11/23 08:00 BP 101/70 11/11/23 07:16 Pulse Ox 96 11/11/23 07:16 FiO2 Intake & Output 11/10/23 11/11/23 11/11/23 18:59 06:59 18:59 Output Total 250 Balance -250 Weight 56.699 kg Output: Urine 250 Other: Voiding Method Urinal Urinal Urinal # Voids 1 1 - Labs CBC & Chem 7: 11/09/23 23:05 11/09/23 23:05
[2023-11-11 14:49] VITALS: BMI 17.9
--- NOTE | 2023-11-12 10:33 | P.PN ---
Subjective Progress Note Date: 11/12/23 Principal diagnosis: Left distal femur fracture Patient was seen at bedside this morning with IROM knee brace locked in full extension present to left lower extremity. kerlix dressing is present over right calf wound. Patient says he is looking forward to working with PT/OT this morning. Patient and are agreeable to rehab placement upon discharge from the hospital. Patient is looking forward to seeing wound care today as well with the recommendations in regards to the right calf wound. Patient says he has still been having a lot of pain to the left lower extremity since he came into the hospital. He says there is a little bit of relief while he is resting but increased pain when he tries to move lower extremity. Patient denies any other orthopedic complaints at this time. Objective - Vital Signs Vital signs: Vital Signs Temp 97.6 F 11/12/23 07:17 Pulse 104 H 11/12/23 07:17 Resp 18 11/12/23 07:17 BP 109/73 11/12/23 07:17 Pulse Ox 97 11/12/23 07:17 FiO2 Intake & Output 11/11/23 11/12/23 11/12/23 18:59 06:59 18:59 Output Total 625 300 Balance -625 -300 Weight 56.699 kg Output: Urine 625 300 Other: Voiding Method Urinal Urinal - Exam Inspection: IROM knee brace present on left lower extremity locked in full extension. Negative for any open fractures, skin erythema/ecchymosis/open wounds to left lower extremity. Positive for minimal swelling just proximal to the left knee. kerlix dressing present over right calf. Sensation: Equal, symmetric, bilaterally intact throughout the upper and lower extremities on exam. Palpation: Significant tenderness to patient just proximal to the left knee diffusely. Patient does have some radiation of pain to the proximal hip. Fair amount of tenderness palpation near the wound on the right calf. Nontender to palpation throughout rest exam. Range of motion: Patient has full range of motion throughout right upper extremity exam. There is some limited range of motion of left shoulder secondary to referred stiffness and pain in the left shoulder since the fall. Full range of motion throughout left elbow and left wrist in flexion extension. Full range motion throughout right hip and right knee flexion extension. Plantar motion throughout right ankle dorsiflexion/plantarflexion. Limited range of motion in the left knee and left hip secondary to injury and pain. Patient is able to wiggle digits in feet. Motor: 4/5 and right upper extremity and right lower extremity exam. 3/5 in left shoulder throughout forward elevation, abduction and external/internal rotation. 4/5 in resisted flexion extension of left elbow and left wrist. 3-/5 in resisted left ankle dorsiflexion/plantarflexion. Left knee and left hip motor exam not performed due to injury/pain. Neurovascular: Refill under 3 seconds in digits the lower extremities. Radial pulse intact, 2+ bilateral. DP pulses palpable bilaterally. Special tests: Negative Homans bilaterally. - Labs CBC & Chem 7: 11/09/23 23:05 11/09/23 23:05 Assessment and Plan Assessment: 1. Left distal femur fracture Plan: 1. Left distal femur fracture; right calf wound - X-ray of the left hip reveals previous IM nail is in place proximally. There is evident oblique minimally displaced fracture along the mid to distal femoral shaft. Negative for any dislocations. case management working on [facility] placement. patient may toe touch weight bear w/walker while in brace. IROM hinged knee brace to be set at 0-20 degrees full extension. Pain medication as needed. Wound care consult for wound to the right calf. We will continue follow patient during stay in [facility] to [facility] once auth obtained 2. Appreciate medical management 3. Pain management -[place]; Flexeril; Tylenol 4. DVT ppx - eliquis 5. GI ppx - senna 6. PT/OT toe-[facility] weight bearing LLE with IROM brace locked in full extension over LLE on with walker 7. encourage incentive spirometer use 8. Discharge planning -rehab once auth obtained Time with Patient: Less than 30
--- NOTE | 2023-11-12 11:24 | P.PN ---
Subjective Progress Note Date: 11/12/23 HISTORY OF PRESENT ILLNESS: This is a 78-year-old male 1 [place] patient with a previous medical his tory significant for chronic atrial fibrillation, hypertension and hypertensive cardiovascular disease, hyperlipidemia, osteoarthritis as well as osteoporosis, history of chronic low back pain, patient was walking on the park about a week ago Saturday and [facility] and all of a sudden he saw another dog with a loose leash attacked him and bit a piece of his calf on the right side, apparently the patient has been on anticoagulation in the form of Eliquis due to chronic atrial fibrillation, he bled a lot, EMT as well as traffic police officer came over to the scene, the dog contact lens fitter ran away with her dogs, and the patient was brought into the emergency department at [facility], where he had pr imary aids and he had minimal sutures placed around the edges and he was supposed to follow-up with Dr. Rivera as an outpatient for a skin graft placement. Apparently the patient had an appointment to do that today, patient was at home he was doing fine, he was sitting down in a chair and he went after he was watching hockey game to go to the bathroom, and he tripped over a rug and on the floor, he landed on the left side of his body, he ended up with a tremendous amount of pain in the left femur, he ended up coming to the emergency department at [facility] and he was found to have left minimally displaced femur fracture, and he was admitted to the hospital under orthopedic surgery, we were asked to see the patient for medical management. 63: Patient is laying down in bed in no apparent distress, he denies any chest pain, he has no shortness of breath, he has no abdominal pain, nausea vomiting or diarrhea, he has been seen by orthopedic surgery, and he was supposed to go for evaluation by Dr. Rivera for possible skin graft of the right calf area, patient pain is controlled at this time, he has been started on his medication, will continue to follow the patient very closely. 4: Patient is sitting up in bed at this time with no acute distress. He does admit to left leg pain that is controlled with pain medication at this time. Patient also has right calf wound due to a dog bite. Patient is supposed to follow-up outpatient with Dr. Nogueira for possible skin graft. Patient denies chest pain shortness of breath or abdominal pain. Patient admits to not having a BM for 3 days. We will add MiraLAX 17 g once daily starting tomorrow. REVIEW OF SYSTEMS: Constitutional: No documented fever, no chills, no night sweats. No weight change. No weakness, fatigue or lethargy. No daytime sleepiness. EENT: No headache. No blurred vision or double vision, no loss of vision. No loss of Hearing, no ringing in the ears, no dizziness. No nasal drainage or congestion. No epistaxis. No sore throat. Lungs: No shortness of breath, no cough, no sputum production. No wheezing. Reports dyspnea with activity. Cardiovascular: No chest pain, no lower extremity edema. No palpitations. No paroxysmal nocturnal dyspnea. No orthopnea. No lightheadedness or dizziness. No syncopal episodes. Abdominal: Reports no abdominal pain. No nausea, vomiting. No diarrhea. P ositive constipation. No bloody or tarry stools reports loss of appetite. Genitourinary: No dysuria, increased frequency, urgency. No urinary retention. Musculoskeletal: No myalgias. No muscle weakness, no gait dysfunction, no frequent falls. No back pain. No neck pain. Integumentary: right calf wound with large tissue loss, no lesions. No rash or pruritus. No unusual bruising. No change in hair or nails. Neurologic: No aphasia. No facial droop. No change in mentation. No head injury. No headache. No paralysis. No paresthesia. Psychiatric: No depression. No anxiety. No mood swings. Endocrine: No abnormal blood sugars. No weight change. PHYSICAL EXAMINATION: General: 78-year-old male laying down in bed in no apparent distress. HEENT: Head is atraumatic, normocephalic, pupils were equal round reactive to light and recommendation, extraocular muscle movement were intact, sclera nonicteric, conjunctivae were pale, mucous membranes of the mouth are somewhat dry. Neck: Supple, no JVP, normal carotid upstroke bilaterally, no lymphadenopathy. Chest: Decreased breath sounds at the bases, few rhonchi, no expiratory wheezes, no chest wall tenderness, no intercostal retractions. Heart: First heart sound is normal, second heart sound is normal irregularly irregular, there is systolic ejection murmur 2/6 again the left sternal border. Abdomen: Soft, nontender, nondistended, positive bowel sounds. Extremities: There is no edema no calf tenderness DP +2 bilaterally. There is a large wound to the right calf area currently dressed very closely, with a large tissue loss. Minimally approximated with sutures, all the way down to the muscle. Neurologic examination: Patient is awake alert and oriented x3, cranial nerves II-12 appear grossly intact, muscle power were 5 out of 5 in upper extremities and 5 out of 5 in bilateral lower extremities, deep tendon reflexes normal bilaterally. ASSESSMENT AND PLAN: 1. Left distal femur fracture minimally displaced. Patient currently in I ROM hinged knee brace at 0 to 20 degrees full extension. He was seen in [facility] by orthopedic surgery no planned surgery at this point in time. Continue current pain management. 2. History of dog bite to the right calf with significant tissue loss. We will consult Dr. Rivera for possible grafting. 3. History of chronic atrial fibrillation. Continue patient on Eliquis 5 mg orally twice every day, continue metoprolol ER 25 mg orally once every day. 4. Hypertension and hypertensive cardiovascular disease. Continue patient on metoprolol ER 25 mg orally once every day. 5. Mixed hyperlipidemia. Continue patient on atorvastatin 40 mg once every day, monitor the patient lipid panel, keep LDL 55-70. 6. History of osteoarthritis. Stable. Continue current pain management. 7. History of spondylosis of the lumbar spine. Continue patient on current cyclobenzaprine, as well as hydrocodone for pain control. 8. Constipation. Continue with senna. We will add MiraLAX 17 g once daily. 9. DVT prophylaxis. Continue patient on Eliquis 5 mg orally twice every day. 10. We will follow the patient with you. Impression and plan of care have been directed as dictated by the signing physician. Sadie García, nurse practitioner acting as scribe for signing physician. Objective - Vital Signs Vital signs: Vital Signs Temp 97.6 F 11/12/23 07:17 Pulse 104 H 11/12/23 07:17 Resp 18 11/12/23 07:17 BP 109/73 11/12/23 07:17 Pulse Ox 97 11/12/23 07:17 FiO2 Intake & Output 11/11/23 11/12/23 11/12/23 18:59 06:59 18:59 Output Total 625 300 Balance -625 -300 Weight 56.699 kg Output: Urine 625 300 Other: Voiding Method Urinal Urinal - Labs CBC & Chem 7: 11/09/23 23:05 11/09/23 23:05
[2023-11-12 14:55] LABS: Basophils % (A) 0 %; Eosinophils # (A) 0.1 k/uL (0-0.7); Eosinophils % (A) 1 %; HCT 36.6 % (39.0-53.0); HGB 12.1 gm/dL (13.0-17.5); Lymphocytes # (A) 1.4 k/uL (1.0-4.8); Lymphocytes % (A) 20 %; MCH 33.6 pg (25.0-35.0); MCHC 33.1 g/dL (31.0-37.0); MCV 101.4 fL (80.0-100.0); Macrocytosis Slight; Mean Platelet Volume 10.8; Monocytes # (A) 0.5 k/uL (0-1.0); Monocytes % (A) 8 %; Neutrophils # (A) 4.7 k/uL (1.3-7.7); Neutrophils % (A) 68 %; Platelet Count 127 k/uL (150-450); RBC 3.61 m/uL (4.30-5.90); RDW 12.9 % (11.5-15.5); WBC 6.9 k/uL (3.8-10.6)
--- NOTE | 2023-11-12 16:23 | P.PN ---
Subjective Progress Note Date: 11/12/23 This is a 78-year-old male who sustained a right dog bite wound to his calf region on 11/01/2023. At the time, he was seen in the emergency department where his wound was irrigated and the skin edges were loosely tacked down with absorbable suture to the underlying tissue. He was discharged that same day. He returned emergency department two days prior after a new fall and was found to have a nondisplaced distal femur fracture around a previously placed intramedullary nail and is currently admitted due to this most recent injury. He was not able to follow up in the outpatient setting regarding his calf wound and I have been consulted to evaluate the wound given that the patient is currently admitted. The patient states he has been doing daily dressing changes and has minimal pain. Objective - Vital Signs Vital signs: Vital Signs Temp 98.0 F 11/12/23 13:08 Pulse 89 11/12/23 13:08 Resp 18 11/12/23 13:08 BP 112/76 11/12/23 13:08 Pulse Ox 96 11/12/23 13:08 FiO2 Intake & Output 11/11/23 11/12/23 11/12/23 18:59 06:59 18:59 Output Total 625 300 Balance -625 -300 Weight 56.699 kg Output: Urine 625 300 Other: Voiding Method Urinal Urinal - Exam RLE: 6cmx5.5cm oval wound along proximal lateral calf region. There is complete tissue defect down to the fascia of the calf musculature without adequate soft tissue coverage. No signs of erythema, warmth or infection. - Labs CBC & Chem 7: 11/12/23 14:06 11/09/23 23:05 Labs: Abnormal Lab Results - Last 24 Hours (Table) 11/12/23 Range/Units 14:06 RBC 3.61 L (4.30-5.90) m/uL Hgb 12.1 L (13.0-17.5) gm/dL Hct 36.6 L (39.0-53.0) % MCV 101.4 H (80.0-100.0) fL Plt Count 127 L (150-450) k/uL Assessment and Plan Assessment: 1.) Right calf 5.5x 6cm wound with exposed fascia of calf musculature s/p dog bite. Plan: The patient was seen and examined at bedside. I was able to take the dressing down and evaluate the wound myself. He has exposed and uncovered fascia with a sizeable 6x 5.5cm defect. We discussed that this will likely not be amendable to healing by secondary intention and will likely require skin grafting. This is not something that I perform and is out of my area of expertise. He will require evaluation by a plastic surgeon or general surgeon who performs skin grafting. I am not aware of any surgeons in the hospital that perform this procedure. I recommend case management look into possible plastic surgery options for the patient to be evaluated in the next 3-5 days. There is no planned orthopedic surgical intervention at this time. New dressing with xeroform, 4x4's and webril is applied. Daily dressing changes can be performed as needed. The dressing can stay on for 2-3 day intervals. -Jay Rivera DO Orthopedic Surgeon
--- NOTE | 2023-11-12 22:38 | XR ---
EXAMINATION TYPE: XR shoulder complete LT DATE OF EXAM: 11/09/2023 7:20 PM CLINICAL INDICATION:Male, 78 years old with history of s/p fall, left shoulder pain, left hip/leg olena n; [facility] COMPARISON: TECHNIQUE: XR shoulder complete LT; shoulder was examined in AP, internally rotated and scapular Y p rojections. FINDINGS: Generalized osteopenia, possibly related to osteoporosis, limits the study. Mild irregularity in the region of the A/C joint related to degenerative changes, with superimposed fracture of the distal cla vicle difficult to exclude. Mild degenerative change of the glenohumeral joint without evidence of fracture or dislocation. There are vascular calcifications present. A couple of remote left rib deformities are suggested. IMPRESSION: 1. Mild degenerative change of the glenohumeral and A/C joints. 2. No clear-cut fracture or dislocation.
[2023-11-13 07:16] VITALS: BP 117/77; PULSE 93; RESP 18; TEMP 98.2
--- NOTE | 2023-11-13 08:17 | P.DS ---
Providers Date of admission: 11/09/23 21:17 Expected date of discharge: 11/13/23 Attending physician: Willard Jackson Consults: 11/10/23 08:07 Consult Physician Routine Consulting Provider: Rula Rodriguez Consult Reason/Comments: medical management, known patient Do you want consulting provider notified?: Yes 11/12/23 11:24 Consult Physician Routine Consulting Provider: Jay Rivera Consult Reason/Comments: right calf bite wound Do you want consulting provider notified?: Yes Primary care physician: Rula Rodriguez Hospital Course: Date of admission: 11/09/2023 Date of discharge: 11/13/2023 Admission diagnosis: Left distal femur fracture Discharge diagnosis: Same Attending physician: Dr. Jackson Surgical procedures: None Brief history: Patient is a 78-year-old male with a history of left distal femur fracture status post fall. We did move forward with conservative measures with hinged knee brace to the left lower extremity for distal femur fracture. Hospital course: Patient's orthopeidc and medical care was provided daily. Patient had daily laboratory tests performed for evaluation of overall blood counts. Patient had daily physical therapy to include strengthening range of motion as well as education with walker ambulation. Patient was treated with Elquis for their DVT prophylaxis during their inpatient stay. Patient was noted to have a relatively uneventful course. Patient reported satisfactory pain control with oral pain medications by day 4. Patient showed satisfactory progress with physical therapy. Patient moved steadily through the program and had no difficulty meeting the goals by day 4. Given patient's otherwise satisfactory course and having met physical therapy goals, plan is to discharge patient to rehab on day 4. Discharge condition/disposition: Patient will be discharged to rehab in stable condition. Discharge medications: Instructions are given on resumption of patient's normal daily medications per primary care recommendation, in addition patient will be prescribed [place]; senna Discharge instructions: 1. Wound care and infection precautions, keep incision dry and covered while showering, no lotions, creams, moisturizers. No soaking, tubs, pools, hottubs. Do not scrub over the incision. 2. toe-touch Weight-bearing left lower extremity and WBAT RLE with walker / cane until follow-up. 3. Ice and elevate when necessary. Do not exceed 20 minutes per hour with ice pack. 4. Utilize hinged knee brace to LLE locked in 0-20 degrees full extension until seen at first follow up appointment. 5. Nursing care. 6. Physical therapy. 7. Pain meds and anticoagulants per prescription. 8. Pain medication has potential to cause constipation. Increase oral fluid and fiber intake. Contact primary care provider if you have not had a bowel movement within 48 hours after discharge 9. No anti-inflammatory medication until discussed at first post operative visit, this including Motrin, Aleve, Mobic, Diclofenac. 11. Follow up with your primary care doctor 7-10 days after discharge. 12. Contact [facility] with any questions, . Assessment: Left distal femur fracture; wound right calf Procedures: none Patient Condition at Discharge: Good Plan - Discharge Summary Discharge Rx Participant: Yes New Discharge Prescriptions: New HYDROcodone/APAP 7.5-325MG [[place] 7.5-325] 1 tab PO Q6HR PRN #24 tab PRN Reason: Pain Sennosides/Docusate Sodium [Senna Plus 8.6-50 mg Softgel] 1 each PO DAILY #20 capsule Continue Apixaban [Eliquis] 5 mg PO DAILY No Action Metoprolol Succinate (ER) [Toprol Xl] 25 mg PO DAILY Amoxic-Pot Clav 875-125Mg [Augmentin 875-125] 1 tab PO Q12HR #20 tab Atorvastatin [Lipitor] 40 mg PO DAILY Discharge Medication List Amoxic-Pot Clav 875-125Mg [Augmentin 875-125] 1 tab PO Q12HR #20 tab 11/01/23 [Rx] Apixaban [Eliquis] 5 mg PO DAILY 11/01/23 [History] Atorvastatin [Lipitor] 40 mg PO DAILY 11/01/23 [History] Metoprolol Succinate (ER) [Toprol Xl] 25 mg PO DAILY 11/01/23 [History] HYDROcodone/APAP 7.5-325MG [[place] 7.5-325] 1 tab PO Q6HR PRN #24 tab 11/13/23 [Rx] Sennosides/Docusate Sodium [Senna Plus 8.6-50 mg Softgel] 1 each PO DAILY #20 capsule 11/13/23 [Rx] Follow up Appointment(s)/Referral(s): Rula Rodriguez MD [Primary Care Provider] - 1-2 days [facility], [NON-STAFF] - As Needed Latasha Moseley [NON-STAFF] - As Needed (Hinged knee brace) Willard Jcakson MD [STAFF PHYSICIAN] - 11/20/23 Activity/Diet/Wound Care/Special Instructions: Discharge instructions: 1. Wound care and infection precautions, keep incision dry and covered while showering, no lotions, creams, moisturizers. No soaking, tubs, pools, hottubs. Do not scrub over the incision. 2. toe-touch Weight-bearing left lower extremity and WBAT RLE with walker / cane until follow-up. 3. Ice and elevate when necessary. Do not exceed 20 minutes per hour with ice pack. 4. Utilize hinged knee brace to LLE locked in 0-20 degrees full extension until seen at first follow up appointment. 5. Nursing care. 6. Physical therapy. 7. Pain meds and anticoagulants per prescription. 8. Pain medication has potential to cause constipation. Increase oral fluid and fiber intake. Contact primary care provider if you have not had a bowel movement within 48 hours after discharge 9. No anti-inflammatory medication until discussed at first post operative visit, this including Motrin, Aleve, Mobic, Diclofenac. 11. Follow up with your primary care doctor 7-10 days after discharge. 12. Contact [facility] with any questions, . Discharge Disposition: TRANSFER TO SNF/ECF
[2023-11-13] MEDS: polyethylene glycoL 3350 17 GM POWD.PACK PO SCH (08:35)
--- NOTE | 2023-11-13 11:13 | P.PN ---
Subjective Progress Note Date: 11/13/23 Principal diagnosis: Left distal femur fracture Patient was seen at bedside this morning with IROM knee brace locked in full extension present to left lower extremity. kerlix dressing is present over right calf wound. Patient says he is looking forward to working with PT/OT this morning. Patient and are agreeable to rehab placement upon discharge from the hospital. Patient is looking forward to seeing wound care today as well with the recommendations in regards to the right calf wound. Patient says his pain is under better control than it was the first couple days since coming into hospital. He says there is a little bit of relief while he is resting but increased pain when he tries to move lower extremity. Patient denies any other orthopedic complaints at this time. Objective - Vital Signs Vital signs: Vital Signs Temp 98.2 F 11/13/23 07:15 Pulse 93 11/13/23 07:15 Resp 18 11/13/23 07:15 BP 117/77 11/13/23 07:15 Pulse Ox 97 11/13/23 07:15 FiO2 Intake & Output 11/12/23 11/13/23 11/13/23 18:59 06:59 18:59 Other: Voiding Method Urinal Urinal # Voids 3 - Exam Inspection: IROM knee brace present on left lower extremity locked in full extension. Negative for any open fractures, skin erythema/ecchymosis/open wounds to left lower extremity. Positive for minimal swelling just proximal to the left knee. kerlix dressing present over right calf. Sensation: Equal, symmetric, bilaterally intact throughout the upper and lower extremities on exam. Palpation: moderate tenderness to palpation just proximal to the left knee diffusely. Patient does have some radiation of pain to the proximal hip. Fair amount of tenderness palpation near the wound on the right calf. Nontender to palpation throughout rest exam. Range of motion: Patient has full range of motion throughout right upper extremity exam. There is some limited range of motion of left shoulder secondary to referred stiffness and pain in the left shoulder since the fall. Full range of motion throughout left elbow and left wrist in flexion extension. Full range motion throughout right hip and right knee flexion extension. Plant ar motion throughout right ankle dorsiflexion/plantarflexion. Limited range of motion in the left knee and left hip secondary to injury and pain. Patient is able to wiggle digits in feet. Motor: 4/5 and right upper extremity and right lower extremity exam. 3/5 in left shoulder throughout forward elevation, abduction and external/internal rotation. 4/5 in resisted flexion extension of left elbow and left wrist. 3-/5 in resisted left ankle dorsiflexion/plantarflexion. Left knee and left hip motor exam not performed due to injury/pain. Neurovascular: Refill under 3 seconds in digits the lower extremities. Radial pulse intact, 2+ bilateral. DP pulses palpable bilaterally. Special tests: Negative Homans bilaterally. - Labs CBC & Chem 7: 11/12/23 14:06 11/09/23 23:05 Labs: Abnormal Lab Results - Last 24 Hours (Table) 11/12/23 Range/Units 14:06 RBC 3.61 L (4.30-5.90) m/uL Hgb 12.1 L (13.0-17.5) gm/dL Hct 36.6 L (39.0-53.0) % MCV 101.4 H (80.0-100.0) fL Plt Count 127 L (150-450) k/uL Assessment and Plan Assessment: 1. Left distal femur fracture Plan: 1. Left distal femur fracture; right calf wound - X-ray of the left hip reveals previous IM nail is in place proximally. There is evident oblique minimally displaced fracture along the mid to distal femoral shaft. Negative for any dislocations. patient may toe touch weight bear w/walker while in brace. IROM hinged knee brace to be set at 0-20 degrees full extension. Pain medication as needed. Wound care consult for wound to the right calf. We will continue follow patient during stay in hospital. to [facility] today 2. Appreciate medical management 3. Pain management -[place]; Flexeril; Tylenol 4. DVT ppx - eliquis 5. GI ppx - senna 6. [facility] LLE with IROM brace locked in full extension over LLE on with walker 7. encourage incentive spirometer use 8. Discharge planning -to [facility] today Time with Patient: Less than 30
--- NOTE | 2023-11-13 12:09 | P.PN ---
Subjective Progress Note Date: 11/13/23 HISTORY OF PRESENT ILLNESS: This is a 78-year-old male 1 [place] patient with a previous medical his tory significant for chronic atrial fibrillation, hypertension and hypertensive cardiovascular disease, hyperlipidemia, osteoarthritis as well as osteoporosis, history of chronic low back pain, patient was walking on the park about a week ago Saturday and [facility] and all of a sudden he saw another dog with a loose leash attacked him and bit a piece of his calf on the right side, apparently the patient has been on anticoagulation in the form of Eliquis due to chronic atrial fibrillation, he bled a lot, EMT as well as patrol police sergeant came over to the scene, the dog tar boiler ran away with her dogs, and the patient was brought into the emergency department at [facility], where he had pr imary aids and he had minimal sutures placed around the edges and he was supposed to follow-up with Dr. Rivera as an outpatient for a skin graft placement. Apparently the patient had an appointment to do that today, patient was at home he was doing fine, he was sitting down in a chair and he went after he was watching hockey game to go to the bathroom, and he tripped over a rug and on the floor, he landed on the left side of his body, he ended up with a tremendous amount of pain in the left femur, he ended up coming to the emergency department at [facility] and he was found to have left minimally displaced femur fracture, and he was admitted to the hospital under orthopedic surgery, we were asked to see the patient for medical management. 63: Patient is laying down in bed in no apparent distress, he denies any chest pain, he has no shortness of breath, he has no abdominal pain, nausea vomiting or diarrhea, he has been seen by orthopedic surgery, and he was supposed to go for evaluation by Dr. Rivera for possible skin graft of the right calf area, patient pain is controlled at this time, he has been started on his medication, will continue to follow the patient very closely. 4: Patient is sitting up in bed at this time with no acute distress. He does admit to left leg pain that is controlled with pain medication at this time. Patient also has right calf wound due to a dog bite. Patient is supposed to follow-up outpatient with Dr. Nogueira for possible skin graft. Patient denies chest pain shortness of breath or abdominal pain. Patient admits to not having a BM for 3 days. We will add MiraLAX 17 g once daily starting tomorrow. 11/12: Patient sitting up in bed at this time with at bedside. Patient is in good spirits and in minimal pain. Left hinged brace remains in place. New dressing to the left calf wound. Dr. Rivera saw the patient and recommended to refer for plastic surgery after subacute rehab. Patient will be discharged today to [facility]. REVIEW OF SYSTEMS: Constitutional: No documented fever, no chills, no night sweats. No weight ch fozia. No weakness, fatigue or lethargy. No daytime sleepiness. EENT: No headache. No blurred vision or double vision, no loss of vision. No loss of Hearing, no ringing in the ears, no dizziness. No nasal drainage or congestion. No epistaxis. No sore throat. Lungs: No shortness of breath, no cough, no sputum production. No wheezing. Reports dyspnea with activity. Cardiovascular: No chest pain, no lower extremity edema. No palpitations. No paroxysmal nocturnal dyspnea. No orthopnea. No lightheadedness or dizziness. No syncopal episodes. Abdominal: Reports no abdominal pain. No nausea, vomiting. No diarrhea. Positive constipation. No bloody or tarry stools reports loss of appetite. Genitourinary: No dysuria, increased frequency, urgency. No urinary retention. Musculoskeletal: No myalgias. No muscle weakness, no gait dysfunction, no frequent falls. No back pain. No neck pain. Integumentary: right calf wound with large tissue loss, no lesions. No rash or pruritus. No unusual bruising. No change in hair or nails. Neurologic: No aphasia. No facial droop. No change in mentation. No head injury. No headache. No paralysis. No paresthesia. Psychiatric: No depression. No anxiety. No mood swings. Endocrine: No abnormal blood sugars. No weight change. PHYSICAL EXAMINATION: General: 78-year-old male laying down in bed in no apparent distress. HEENT: Head is atraumatic, normocephalic, pupils were equal round reactive to light and recommendation, extraocular muscle movement were intact, sclera nonicteric, conjunctivae were pale, mucous membranes of the mouth are somewhat dry. Neck: Supple, no JVP, normal carotid upstroke bilaterally, no lymphadenopathy. Chest: Decreased breath sounds at the bases, few rhonchi, no expiratory wheezes, no chest wall tenderness, no intercostal retractions. Heart: First heart sound is normal, second heart sound is normal irregularly irregular, there is systolic ejection murmur 2/6 again the left sternal border. Abdomen: Soft, nontender, nondistended, positive bowel sounds. Extremities: There is no edema no calf tenderness DP +2 bilaterally. There is a large wound to the right calf area currently dressed very closely, with a large tissue loss. Minimally approximated with sutures, all the way down to the m uscle. Neurologic examination: Patient is awake alert and oriented x3, cranial nerves II-12 appear grossly intact, muscle power were 5 out of 5 in upper extremities and 5 out of 5 in bilateral lower extremities, deep tendon reflexes normal bilaterally. ASSESSMENT AND PLAN: 1. Left distal femur fracture minimally displaced. Patient currently in I ROM hinged knee brace at 0 to 20 degrees full extension. He was seen in consultation by orthopedic surgery no planned surgery at this point in time. 2. History of dog bite to the right calf with significant tissue loss. Dr. Rivera recommends referral to plastic surgery post subacute rehab. 3. History of chronic atrial fibrillation. Continue patient on Eliquis 5 mg orally twice every day, continue metoprolol ER 25 mg orally once every day. 4. Hypertension and hypertensive cardiovascular disease. Continue patient on metoprolol ER 25 mg orally once every day. 5. Mixed hyperlipidemia. Continue patient on atorvastatin 40 mg once every day, monitor the patient lipid panel, keep LDL 55-70. 6. History of osteoarthritis. Stable. Continue current pain management. 7. History of spondylosis of the lumbar spine. Continue patient on current cyclobenzaprine, as well as hydrocodone for pain control. 8. Constipation. Continue with senna. We will add MiraLAX 17 g once daily. 9. DVT prophylaxis. Continue patient on Eliquis 5 mg orally twice every day. 10. Patient will be discharged to [facility] today. Impression and plan of care have been directed as dictated by the signing physician. Sadie García, nurse practitioner acting as scribe for signing physician. Objective - Vital Signs Vital signs: Vital Signs Temp 98.2 F 11/13/23 07:15 Pulse 93 06/05/24 07:15 Resp 18 11/13/23 07:15 BP 117/77 11/13/23 07:15 Pulse Ox 97 11/13/23 07:15 FiO2 Intake & Output 11/12/23 11/13/23 11/13/23 18:59 06:59 18:59 Other: Voiding Method Urinal Urinal # Voids 3 - Labs CBC & Chem 7: 11/12/23 14:06 11/09/23 23:05 Labs: Abnormal Lab Results - Last 24 Hours (Table) 11/12/23 Range/Units 14:06 RBC 3.61 L (4.30-5.90) m/uL Hgb 12.1 L (13.0-17.5) gm/dL Hct 36.6 L (39.0-53.0) % MCV 101.4 H (80.0-100.0) fL Plt Count 127 L (150-450) k/uL
== END 2023-11-13 14:45 | DRG 534 ==
LOC: EC 16:11 → 4SSUR 21:17
PROVIDERS: ADMIT Orthopaedic Surgery; ATTEND Orthopaedic Surgery
DX: S72.492A Other fracture of lower end of left femur, initial encounter for closed fracture (principal); I48.20 Chronic atrial fibrillation, unspecified; I10 Essential (primary) hypertension; S81.851A Open bite, right lower leg, initial encounter; E78.2 Mixed hyperlipidemia; W18.09XA Striking against other object with subsequent fall, initial encounter; M47.896 Other spondylosis, lumbar region; M81.0 Age-related osteoporosis without current pathological fracture; G89.29 Other chronic pain; W01.0XXA Fall on same level from slipping, tripping and stumbling without subsequent striking against object, initial encounter; W54.0XXA Bitten by dog, initial encounter; Z79.01 Long term (current) use of anticoagulants
CPT/HCPCS: 70450; 71046; 72125; 72170; 80053; 85025; 85610; 85730; 93005; 96372; 96374; 96376; 99285

== ENCOUNTER 2024-05-29 10:37 | Emergency (ER) | payer MEDICARE, BC ==
--- NOTE | 2024-05-29 11:45 | ED ---
Fall HPI - General Chief Complaint: Fall Stated Complaint: back pain Time Seen by Provider: 05/29/24 10:38 Source: patient, RN notes reviewed Mode of arrival: EMS Limitations: no limitations - History of Present Illness Initial Comments: 78-year-old male presents emergency department chief complaint of a fall. Patient states she had a trip and fall helping his 4 days ago. Patient states that he has low back pain he states he walks with a walker which is chronic. He states he had prior left femur surgery denies any head injury no loss conscious. He states he is just here for some x-rays of his lumbar back patient denies any bowel, bladder and cons retention no saddle anesthesias no lower extremity weakness or paresthesias. - Related Data Home Medications Medication Instructions Recorded Confirmed Apixaban [Eliquis] 5 mg PO DAILY 11/01/23 11/09/23 Atorvastatin [Lipitor] 40 mg PO DAILY 11/01/23 11/09/23 Metoprolol Succinate (ER) [Toprol 25 mg PO DAILY 11/01/23 11/09/23 XL] Previous Rx's Medication Instructions Recorded Acetaminophen Tab [Tylenol] 650 mg PO Q6HR PRN tab 11/13/23 Cyclobenzaprine [Flexeril] 5 mg PO TID tab 11/13/23 HYDROcodone/APAP 7.5-325MG [Waka 1 tab PO Q6HR PRN #24 tab 11/13/23 7.5-325] Sennosides/Docusate Sodium [Senna 1 each PO DAILY #20 capsule 11/13/23 Plus 8.6-50 mg Softgel] polyethylene glycoL 3350 [Miralax] 17 gm PO DAILY packet 11/13/23 HYDROcodone/APAP 7.5-325MG [Waka 1 tab PO Q6HR PRN 3 Days #12 tab 05/29/24 7.5-325] Allergies Allergy/AdvReac Type Severity Reaction Status Date / Time No Known Allergies Allergy Verified 05/29/24 10:45 Review of Systems ROS Statement: Those systems with pertinent positive or pertinent negative responses have been documented in the HPI. ROS Other: All systems not noted in ROS Statement are negative. Past Medical History Past Medical History: Unable to Obtain History of Any Multi-Drug Resistant Organisms: None Reported Past Surgical History: Appendectomy, Orthopedic Surgery Additional Past Surgical History / Comment(s): ortho- left femur Past Psychological History: No Psychological Hx Reported Smoking Status: Never smoker Past Alcohol Use History: None Reported Past Drug Use History: Marijuana General Exam Limitations: no limitations General appearance: alert, in no apparent distress Head exam: Present: atraumatic, normocephalic, normal inspection Neck exam: Present: normal inspection. Absent: tenderness, meningismus, lymphadenopathy Respiratory exam: Present: normal lung sounds bilaterally. Absent: respiratory distress, wheezes, rales, rhonchi, stridor Cardiovascular Exam: Present: regular rate, normal rhythm, normal heart sounds. Absent: systolic murmur, diastolic murmur, rubs, gallop, clicks Extremities exam: Present: other (Lower extremity strength equal bilaterally neurovascular intact) Back exam: Present: full ROM, paraspinal tenderness. Absent: tenderness, vertebral tenderness Neurological exam: Present: alert, oriented X3, reflexes normal. Absent: motor sensory deficit Course Vital Signs 05/29/24 10:45 Temperature 98.2 F Pulse Rate 96 Respiratory 18 Rate Blood Pressure 131/73 O2 Sat by Pulse 98 Oximetry Medical Decision Making - Medical Decision Making Was pt. sent in by a medical professional or institution (, PA, SUPERVISOR CURING ROOM, urgent care, hospital, or penitentiary...) When possible be specific @ -No Did you speak to anyone other than the patient for history (EMS, parent, family, police, friend...)? What history was obtained from this source @ -No Did you review nursing and triage notes (agree or disagree)? Why? @ -I reviewed and agree with nursing and triage notes Were old charts reviewed (outside hosp., previous admission, EMS record, old EKG, old radiological studies, urgent care reports/EKG's, penitentiary records)? Report findings @ -No old charts were reviewed Differential Diagnosis (chest pain, altered mental status, abdominal pain women, abdominal pain men, vaginal bleeding, weakness, fever, dyspnea, syncope, headach e, dizziness, GI bleed, back pain, seizure, CVA, palpatations, mental health, musculoskeletal)? @ -Differential Back Pain: Strain, zoster, cauda equina syndrome, epidural abscess, vertebral osteomyel itis, discitis, fracture, subluxation, disc herniation, DJD, spinal stenosis, dissection, AAA, pancreatitis, peptic ulcer disease, pyelonephritis, kidney stone, this is not meant to be an all-inclusive list. EKG interpreted by me (3pts min.). @ -None X-rays interpreted by me (1pt min.). @ -X-ray lumbar spine showing degenerative changes no acute fracture X-ray pelvis degenerative changes no acute fracture CT interpreted by me (1pt min.). @ -None done U/S interpreted by me (1pt. min.). @ -None done What testing was considered but not performed or refused? (CT, X-rays, U/S, labs)? Why? @ -None What meds were considered but not given or refused? Why? @ -None Did you discuss the management of the patient with other professionals (professionals i.e. Dr., PA, SUPERVISOR CURING ROOM, lab, RT, psych nurse, addiction social worker, rf technician, teacher, light armored vehicle officer, field case manager)? Give summary @ -No Was smoking cessation discussed for >3mins.? @ -No Was critical care preformed (if so, how long)? @ -No Were there social determinants of health that impacted care today? How? (Homelessness, low income, unemployed, alcoholism, drug addiction, transportation, low edu. Level, literacy, decrease access to med. care, correction, rehab)? @ -No Was there de-escalation of care discussed even if they declined (Discuss DNR or withdrawal of care, Hospice)? DNR status @ -No What co-morbidities impacted this encounter? (DM, HTN, Smoking, COPD, CAD, Cancer, CVA, ARF, Chemo, Hep., AIDS, mental health diagnosis, sleep apnea, morbid obesity)? @ -None Was patient admitted / discharged? Hospital course, mention meds given and route, prescriptions, significant lab abnormalities, going to OR and other pertinent info. @ -Discharge patient x-rays are negative for acute fracture. Patient discharged in stable condition return parens discussed. Undiagnosed new problem with uncertain prognosis? @ -No Drug Therapy requiring intensive monitoring for toxicity (Heparin, Nitro, Insulin, Cardizem)? @ -No Were any procedures done? @ -No Diagnosis/symptom? @ -Fall, back pain Acute, or Chronic, or Acute on Chronic? @ -Acute Uncomplicated (without systemic symptoms) or Complicated (systemic symptoms)? @ -Uncomplicated Side effects of treatment? @ -No Exacerbation, Progression, or Severe Exacerbation? @ -No Poses a threat to life or bodily function? How? (Chest pain, [place], [place], pneumonia, PE, COPD, DKA, ARF, appy, cholecystitis, CVA, Diverticulitis, Homicidal, Suicidal, threat to staff... and all critical care pts) @ -No Disposition Clinical Impression: Fall, Back pain Disposition: HOME SELF-CARE Condition: Stable Instructions (If sedation given, give patient instructions): Back Pain (ED) Additional Instructions: Please return to the Emergency Department if symptoms worsen or any other concerns. Prescriptions: HYDROcodone/APAP 7.5-325MG [Waka 7.5-325] 1 tab PO Q6HR PRN 3 Days #12 tab PRN Reason: Pain Is patient prescribed a controlled substance at d/c from ED?: Yes When asked, does pt state using other controlled substances?: No If prescribed controlled substance>3 days was MAPS reviewed?: Prescribed <3 Days If opioid is for acute pain is fill amount 7 days or less?: Yes If Rx opioid, was Start Talking consent form obtained?: Yes Referrals: Rula Rodriguez MD [Primary Care Provider] - 1-2 days Noble Spencer DO [Doctor of Osteopathic Medicine] - 1-2 days Time of Disposition: 12:48
--- NOTE | 2024-05-29 12:43 | XR ---
EXAMINATION TYPE: XR lumbar spine 2 or 3V DATE OF EXAM: 05/29/2024 11:41 AM COMPARISON: None CLINICAL INDICATION: Male, 78 years old with history of fall, pain, pain TECHNIQUE: XR lumbar spine 2 or 3V - Frontal, lateral and coned in L5-S1 lateral views of the spine. FINDINGS: No evidence of any acute osseous pathology. No evidence for acute compression fracture. The re is normal alignment of the lumbar vertebral bodies. Scattered disc space narrowing. Multilevel mar ginal osteophyte formation throughout the visualized spine. There is facet joint arthropathy througho ut the spine. Neural foraminal stenosis worse at L5-S1 with at least mild to moderate. Atheroscleroti c arterial vasculature. IMPRESSION: 1. No acute fracture definitively visualized. 2. Moderate multilevel disc degeneration. [facility], , 05/29/2024 12:40 PM
--- NOTE | 2024-05-29 12:44 | XR ---
EXAMINATION TYPE: XR pelvis AP view DATE OF EXAM: 05/29/2024 11:41 AM COMPARISON: None CLINICAL INDICATION: Male, 78 years old with history of fall, pain; pain [facility] TECHNIQUE: XR pelvis AP view, examined in a single projection. FINDINGS: Left hip fixation hardware appears intact. There is no evidence of fracture or dislocation. There is no soft tissue abnormality. No abnormal calcifications are present. The spine appears inta ct. The hips appear intact. Osteophyte formation of the superior acetabulum bilaterally with mild pramod nt space narrowing. IMPRESSION: 1. No acute osseous pathology. 2. Mild degeneration changes of the hip. 3. Left hip fixation hardware is intact. [facility], , 05/29/2024 12:41 PM
[2024-05-29 13:09] VITALS: BP 128/91; PULSE 102; RESP 16; TEMP 98.9
== END 2024-05-29 13:34 | disposition home or self-care (01) ==
LOC: EC 10:37
DX: M54.50 Low back pain, unspecified (principal); W01.0XXA Fall on same level from slipping, tripping and stumbling without subsequent striking against object, initial encounter
CPT/HCPCS: 72100; 72170; 99283

== ENCOUNTER 2024-07-09 15:41 | Observation (INO) | payer MEDICARE, BC ==
--- NOTE | 2024-07-09 16:40 | ED ---
General Adult HPI - General Chief complaint: Recheck/Abnormal Lab/Rx Stated complaint: heart issues Time Seen by Provider: 07/09/24 16:12 Source: patient, EMS Mode of arrival: EMS Limitations: no limitations - History of Present Illness Initial comments: Patient is a 78-year-old gentleman with a past medical history of PAD, presenting today for nausea vomiting and diaphoresis. Patient states that he was at his primary care provider's office when he walked in from the parking lot and began experiencing severe diaphoresis nausea and vomiting. This lasted for about 15 seconds. An EKG was performed which showed A-fib with RVR, and he was sent to the emergency department. Patient's states that ever since patient was hospitalized in November with a femur fracture, when he went to physical therapy he had similar episodes with activity. He has since then stopped physical therapy for this reason. Patient denies any chest pain or shortness of breath, palpitations, severe headache, dizziness, numbness, focal weakness, slurred speech, changes in vision, fevers chills, recent unexpected weight loss or weight gain, abdominal pain, hematochezia, melena, diarrhea. Patient is a non- smoker. He has no history known history of CAD. Does not history A-fib on Eliquis. Has not seen a drafting layout man in the past. Patient's father at age 54 of heart failure. - Related Data Home Medications Medication Instructions Recorded Confirmed Atorvastatin [Lipitor] 40 mg PO HS 11/01/23 07/09/24 Ammonium Lactate Lotion 1 applic TOPICAL BID 07/09/24 07/09/24 [Lac-Hydrin 12% Lotion] Escitalopram [Lexapro] 5 mg PO HS 07/09/24 07/09/24 Previous Rx's Medication Instructions Recorded Acetaminophen Tab [Tylenol] 650 mg PO Q6HR PRN tab 07/11/24 Apixaban [Eliquis] 5 mg PO BID #60 tab 07/11/24 Famotidine [Pepcid] 20 mg PO BID #60 tab 07/11/24 HYDROcodone/APAP 5-325MG [Ralls 1 each PO Q6HR PRN tab 07/11/24 5-325] Metoprolol Tartrate [Lopressor] 25 mg PO BID #60 tab 07/11/24 Sacubitril/Valsartan [Entresto 24 0.5 each PO BID #60 tab 07/11/24 mg-26 mg Tablet] Allergies Allergy/AdvReac Type Severity Reaction Status Date / Time No Known Allergies Allergy Verified 07/09/24 18:56 Review of Systems ROS Statement: Those systems with pertinent positive or pertinent negative responses have been documented in the HPI. ROS Other: All systems not noted in ROS Statement are negative. Past Medical History Past Medical History: Unable to Obtain History of Any Multi-Drug Resistant Organisms: None Reported Past Surgical History: Appendectomy, Orthopedic Surgery Additional Past Surgical History / Comment(s): ortho- left femur Past Psychological History: No Psychological Hx Reported Smoking Status: Never smoker Past Alcohol Use History: None Reported Past Drug Use History: Marijuana General Exam - General Exam Comments Initial Comments: PE: CONSTITUTIONAL: No apparent distress, chronically ill appearing, nontoxic SKIN: Warm, dry, no jaundice, hives or petechiae EYES: Pupils are equally round, extraocular movements intact without nystagmus, clear conjunctiva, non-icteric sclera HENT: Normocephalic, atraumatic, dry mucus membranes, oropharynx clear without exudates NECK: , Full range of motion, normal appearance PULMONARY: Clear to auscultation without wheezes, rhonchi, or rales, normal excursion, no accessory muscle use and no stridor CARDIOVASCULAR: Irregularly irregular rate and rhythm, normal S1 and S2. No appreciated murmurs, rubs or gallops. Strong radial pulses with intact distal perfusion. No lower extremity edema GASTROINTESTINAL: Soft, active bowel sounds throughout, non-tender, non- distended, no palpable masses, no rebound or guarding. No hepatosplenomegaly MUSCULOSKELETAL: Extremities have no gross deformity, no edema, redness, or swelling. No calf swelling NEUROLOGIC:_a/o x 3, GCS 15, normal mentation and speech. Moves all extremities x 4 without motor or sensory deficit PSYCHIATRIC:_normal mood and affect, thought process is clear and linear Limitations: no limitations Course Vital Signs 07/09/24 07/09/24 07/09/24 15:44 18:04 19:00 Temperature 97.9 F Pulse Rate 72 117 H 80 Pulse Rate [ Right Supine Web Content Specialist ] Respiratory 18 18 20 Rate Blood Pressure 100/67 121/97 98/65 Blood Pressure [Right Arm Supine] O2 Sat by Pulse 97 99 98 Oximetry 07/09/24 07/09/24 19:54 20:00 Temperature 98.6 F Pulse Rate 77 Pulse Rate [ 97 Right Supine Web Content Specialist ] Respiratory 17 17 Rate Blood Pressure 104/69 Blood Pressure 121/89 [Right Arm Supine] O2 Sat by Pulse 98 98 Oximetry - Reevaluation(s) Reevaluation #1: On reassessment patient's heart rate controlled at 75 on Cardizem drip. 07/09/24 18:56 EKG Findings - EKG Comments: EKG Findings:: A-fib with RVR, rate 120 bpm QRS duration 118 ms QT/QTc 330/401 ms, normal axis, no ST elevations or depressions no STEMI Medical Decision Making - Medical Decision Making Was pt. sent in by a medical professional or institution (, PA, FLAT HAMMERER, urgent care, hospital, or custodial...) When possible be specific @ -No Did you speak to anyone other than the patient for history (EMS, parent, family, police, friend...)? What history was obtained from this source @ -No Did you review nursing and triage notes (agree or disagree)? Why? @ -I reviewed nursing and triage notes Were old charts reviewed (outside hosp., previous admission, EMS record, old EKG, old radiological studies, urgent care reports/EKG's, custodial records)? Report findings @ -Medical records reviewed I reviewed EKG sent with patient from his doctor's office, show A-fib with RVR without signs of STEMI Differential Diagnosis (chest pain, altered mental status, abdominal pain women, abdominal pain men, vaginal bleeding, weakness, fever, dyspnea, syncope, headache, dizziness, GI bleed, back pain, seizure, CVA, palpatations, mental health, musculoskeletal)? Differential diagnosis remains broad however top considerations include atypical chest pain/ACS, arrhythmia, pericarditis, pleuritis, pancreatitis, cholecystitis, GERD, esophageal spasm this is not an all-inclusive list EKG interpreted by me (3pts min.). @ -As above X-rays interpreted by me (1pt min.). @Reviewed patient's chest x-ray, Cardiomegaly note, I see no consolidations, or pneumothorax CT interpreted by me (1pt min.). @ -None done U/S interpreted by me (1pt. min.). @ I see no gallbladder wall thickening What testing was considered but not performed or refused? (CT, X-rays, U/S, labs)? Why? @ -None What meds were considered but not given or refused? Why? @ -None Did you discuss the management of the patient with other professionals (professionals i.e. , PA, FLAT HAMMERER, lab, RT, psych nurse, social work therapist, oxygen equipment aide, teacher, property disposal officer, case maker)? Give summary @ -No Was smoking cessation discussed for >3mins.? @ -No Was critical care preformed (if so, how long)? @ Yes 35 minutes Were there social determinants of health that impacted care today? How? (Homelessness, low income, unemployed, alcoholism, drug addiction, transportation, low edu. Level, literacy, decrease access to med. care, correction, rehab)? @ -No Was there de-escalation of care discussed even if they declined (Discuss DNR or withdrawal of care, Hospice)? @ -No What co-morbidities impacted this encounter? (DM, HTN, Smoking, COPD, CAD, Cancer, CVA, ARF, Chemo, Hep., AIDS, mental health diagnosis, sleep apnea, morbid obesity)? Atrial fibrillation, PAD Was patient admitted / discharged? Hospital course, mention meds given and route, prescriptions, significant lab abnormalities, going to OR and other pertinent info. @ -Admission- this is a very pleasant 78-year-old gentleman presenting today after experiencing severe nausea vomiting and diaphoresis after ambulating into his doctor's appointment, at the direction of his primary care provider's office. On my assessment patient is chronically ill-appearing but in no acute distress awake alert, pleasant and conversant. Dry mucous membranes, otherwise physical exam is benign. Concern patient symptoms are consistent with atypical chest pain. At this point will obtain chest pain workup including an amylase and lipase as well, IV fluids and US RUQ. Patient has currently no complaints and agreeable with POC. Pt is initially seen in hallway bed however is tachycardic and will be transferred to room with monitor. On reassessment upon roomming pt remained tachycardic in a fib w/ RvR, so cardizem bolus (0.25 mg/kg) and drip ordered. Labs and imaging reviewed. Troponin wnl. Chest x-ray shows stable cardiomegaly, small bilateral pleural effusions, labs reassuring. Of not, US did note incidental area of On reassessment pt's HR controlled on cardizem gtt. Updated pt to findings and plan for admission. Discussed case with Dr. Rodriguez, kindly accept patient for admission. Undiagnosed new problem with uncertain prognosis? @ -No Drug Therapy requiring intensive monitoring for toxicity (Heparin, Nitro, Insulin, Cardizem)? @ -No Were any procedures done? @ -No Diagnosis/symptom? @atrial fibrillation with RvR, atypical chest pain, N/V Acute, or Chronic, or Acute on Chronic? acute complicated Side effects of treatment? @ -No Exacerbation, Progression, or Severe Exacerbation? @ -No Poses a threat to life or bodily function? How? (Chest pain, [place], [place], pneumonia, PE, COPD, DKA, ARF, appy, cholecystitis, CVA, Diverticulitis, Homicidal, Suicidal, threat to staff... and all critical care pts) @ -Yes - Lab Data Result diagrams: 07/09/24 17:27 07/09/24 17:27 Lab Results 07/09/24 07/09/24 07/09/24 Range/Units 17:27 17:27 17:27 WBC 6.6 (3.8-10.6) k/uL RBC 4.27 L (4.30-5.90) m/uL Hgb 14.5 (13.0-17.5) gm/dL Hct 43.1 (39.0-53.0) % MCV 100.8 H (80.0-100.0) fL MCH 34.0 (25.0-35.0) pg MCHC 33.8 (31.0-37.0) g/dL RDW 12.9 (11.5-15.5) % Plt Count 121 L (150-450) k/uL MPV 9.7 Neutrophils % 72 % Lymphocytes % 18 % Monocytes % 5 % Eosinophils % 3 % Basophils % 0 % Neutrophils # 4.7 (1.3-7.7) k/uL Lymphocytes # 1.2 (1.0-4.8) k/uL Monocytes # 0.4 (0-1.0) k/uL Eosinophils # 0.2 (0-0.7) k/uL Basophils # 0.0 (0-0.2) k/uL PT 13.4 H (10.0-12.5) sec INR 1.3 H (<1.2) APTT 24.4 (22.0-30.0) sec Sodium 136 L (137-145) mmol/L Potassium 4.6 (3.5-5.1) mmol/L Chloride 102 (98-107) mmol/L Carbon Dioxide 28 (22-30) mmol/L Anion Gap 6 mmol/L BUN 14 (9-20) mg/dL Creatinine 0.61 L (0.66-1.25) mg/dL Est GFR (CKD-EPI)AfAm >90 (>60 ml/min/1.73 sqM) Est GFR (CKD-EPI)NonAf >90 (>60 ml/min/1.73 sqM) Glucose 120 H (74-99) mg/dL Calcium 8.8 (8.4-10.2) mg/dL Magnesium 1.8 (1.6-2.3) mg/dL Total Bilirubin 1.0 (0.2-1.3) mg/dL AST 54 (17-59) U/L ALT 30 (4-49) U/L Alkaline Phosphatase 112 (38-126) U/L Troponin I (0.000-0.034) ng/mL NT-Pro-B Natriuret Pep 519 pg/mL Total Protein 6.2 L (6.3-8.2) g/dL Albumin 3.5 (3.5-5.0) g/dL Amylase 47 (30-110) U/L Lipase 10 L (23-300) U/L Influenza Type A (PCR) (Not Detectd) Influenza Type B (PCR) (Not Detectd) RSV (PCR) (Not Detectd) SARS-CoV-2 (PCR) (Not Detectd) 07/09/24 07/09/24 Range/Units 17:27 17:53 WBC (3.8-10.6) k/uL RBC (4.30-5.90) m/uL Hgb (13.0-17.5) gm/dL Hct (39.0-53.0) % MCV (80.0-100.0) fL MCH (25.0-35.0) pg MCHC (31.0-37.0) g/dL RDW (11.5-15.5) % Plt Count (150-450) k/uL MPV Neutrophils % % Lymphocytes % % Monocytes % % Eosinophils % % Basophils % % Neutrophils # (1.3-7.7) k/uL Lymphocytes # (1.0-4.8) k/uL Monocytes # (0-1.0) k/uL Eosinophils # (0-0.7) k/uL Basophils # (0-0.2) k/uL PT (10.0-12.5) sec INR (<1.2) APTT (22.0-30.0) sec Sodium (137-145) mmol/L Potassium (3.5-5.1) mmol/L Chloride (98-107) mmol/L Carbon Dioxide (22-30) mmol/L Anion Gap mmol/L BUN (9-20) mg/dL Creatinine (0.66-1.25) mg/dL Est GFR (CKD-EPI)AfAm (>60 ml/min/1.73 sqM) Est GFR (CKD-EPI)NonAf (>60 ml/min/1.73 sqM) Glucose (74-99) mg/dL Calcium (8.4-10.2) mg/dL Magnesium (1.6-2.3) mg/dL Total Bilirubin (0.2-1.3) mg/dL AST (17-59) U/L ALT (4-49) U/L Alkaline Phosphatase (38-126) U/L Troponin I <0.012 (0.000-0.034) ng/mL NT-Pro-B Natriuret Pep pg/mL Total Protein (6.3-8.2) g/dL Albumin (3.5-5.0) g/dL Amylase (30-110) U/L Lipase (23-300) U/L Influenza Type A (PCR) Not Detected (Not Detectd) Influenza Type B (PCR) Not Detected (Not Detectd) RSV (PCR) Not Detected (Not Detectd) SARS-CoV-2 (PCR) Not Detected (Not Detectd) Disposition Clinical Impression: Atrial fibrillation with rapid ventricular response, Atypical chest pain Disposition: ADMITTED IP TO THIS HOSP Condition: Stable
[2024-07-09] MEDS: SODIUM CHLORIDE 0.9% 1,000 ML IV STA (17:27)
[2024-07-09] MEDS: ASPIRIN 81 MG PO STA (17:27)
[2024-07-09 17:38] LABS: Basophils % (A) 0 %; Eosinophils # (A) 0.2 k/uL (0-0.7); Eosinophils % (A) 3 %; HCT 43.1 % (39.0-53.0); HGB 14.5 gm/dL (13.0-17.5); Lymphocytes # (A) 1.2 k/uL (1.0-4.8); Lymphocytes % (A) 18 %; MCHC 33.8 g/dL (31.0-37.0); MCV 100.8 fL (80.0-100.0); Mean Platelet Volume 9.7; Monocytes # (A) 0.4 k/uL (0-1.0); Monocytes % (A) 5 %; Neutrophils # (A) 4.7 k/uL (1.3-7.7); Neutrophils % (A) 72 %; Platelet Count 121 k/uL (150-450); RBC 4.27 m/uL (4.30-5.90); RDW 12.9 % (11.5-15.5); WBC 6.6 k/uL (3.8-10.6)
--- NOTE | 2024-07-09 17:50 | XR ---
EXAMINATION TYPE: XR chest 2V DATE OF EXAM: 07/09/2024 5:43 PM COMPARISON: 11/09/2023 CLINICAL INDICATION: Male, 78 years old with history of Chest Pain, TECHNIQUE: XR chest 2V view(s) obtained. FINDINGS: The heart size is prominent. The pulmonary vasculature is normal. Small bilateral posterior pleural effusions are present.. IMPRESSION: 1. Mild cardiomegaly, stable. 2. Small posterior pleural effusions. [facility], Workstation: [facility], 07/09/2024 5:48 PM
[2024-07-09] MEDS: DILTIAZEM 125 MG in SODIUM CHLORIDE 0.9% 100 ML IV SCH (18:13)
[2024-07-09] MEDS: DILTIAZEM DRIP BOLUS FROM BAG 1 MG SOLN IV ONE (18:14)
[2024-07-09 18:21] LABS: INR 1.3 (<1.2); Partial Thromboplastin Time 24.4 sec (22.0-30.0); Prothrombin Time 13.4 sec (10.0-12.5)
[2024-07-09 18:41] LABS: ALT 30 U/L (4-49); AST 54 U/L (17-59); African American GFR (CKD) >90 (>60 ml/min/1.73 sqM); Albumin 3.5 g/dL (3.5-5.0); Alkaline Phosphatase 112 U/L (38-126); Amylase 47 U/L (30-110); Anion Gap 6 mmol/L; Blood Urea Nitrogen 14 mg/dL (9-20); Calcium 8.8 mg/dL (8.4-10.2); Carbon Dioxide 28 mmol/L (22-30); Chloride 102 mmol/L (98-107); Glucose 120 mg/dL (74-99); Lipase 10 U/L (23-300); Magnesium 1.8 mg/dL (1.6-2.3); Non-African American GFR(CKD) >90 (>60 ml/min/1.73 sqM); Potassium 4.6 mmol/L (3.5-5.1); Sodium 136 mmol/L (137-145); Total Protein 6.2 g/dL (6.3-8.2)
[2024-07-09 18:49] LABS: NT-Pro-B-Type Natriuretic Pept 519 pg/mL
--- NOTE | 2024-07-09 18:49 | US ---
EXAMINATION TYPE: US gallbladder DATE OF EXAM: 07/09/2024 COMPARISON: US 2020 CLINICAL INDICATION: Male, 78 years old with history of N/V, fam hx pancreatic CA; Patient states paul sea, no vomiting. No abd pain. Fam hx pancreatic cancer. TECHNIQUE: Grayscale and color Doppler imaging of the right upper quadrant was performed. FINDINGS: EXAM MEASUREMENTS: Liver Length: 19.6 cm Gallbladder Wall: 0.3 cm CBD: 0.6 cm Right Kidney: 10.0 x 4.1 x 5.7 cm [employer] UNION NOTES:Slightly limited due to overlying bowel gas Pancreas: Obscured by bowel gas Liver: wnl as best seen Gallbladder: Enlarged measuring 10.6cm in length and 5.5cm in width. Multiple small mobile echogenic foci seen Evidence for sonographic Josue's sign: no CBD: upper limits of normal Right Kidney: There is a 2.0 x 1.8 x 1.9cm anechoic appearing area seen compatible with cyst. There is an echogenic area which may has some posterior shadowing within the mid left kidney. No hydronephr osis evident. *incidental finding of a 3.0 x 3.0 x 2.9cm area within the mid aorta with partial echoes within may b e an area of thrombus. IMPRESSION: 1. Cholelithiasis. 2. Right renal cyst. 3. Possible nonobstructing right renal cyst. 4. Pancreas not identified exam. [facility], Workstation: [facility], 07/09/2024 6:46 PM
[2024-07-09] MEDS ORDERED: ACETAMINOPHEN TAB 325 MG TAB PO PRN (18:51)
[2024-07-09] MEDS ORDERED: MAG HYDROX/AL HYDROX/SIMETH 30 ML CUP PO PRN (18:51)
[2024-07-09] MEDS ORDERED: NALOXONE 0.4 MG/ML 1 ML VIAL IV PRN (18:51)
[2024-07-09] MEDS ORDERED: HYDROcodone/APAP 5-325MG 1 EACH TAB PO PRN (18:51)
[2024-07-09] MEDS ORDERED: ONDANSETRON 4 MG/2 ML VIAL IVP PRN (18:51)
[2024-07-09] MEDS ORDERED: CALCIUM CARBONATE 500 MG CHEWABLE PO PRN (18:51)
[2024-07-09 19:46] LABS: Influenza A Not Detected (Not Detectd); Influenza B Not Detected (Not Detectd); RSV Not Detected (Not Detectd)
[2024-07-09] MEDS: ATORVASTATIN 40 MG TAB PO SCH (21:23)
[2024-07-09] MEDS: FAMOTIDINE 20 MG TAB PO SCH (21:23)
[2024-07-09] MEDS: APIXABAN 5 MG TAB PO SCH (21:23)
[2024-07-09] MEDS: ESCITALOPRAM 5 MG TAB PO SCH (21:38)
[2024-07-10 11:47] LABS: Magnesium 1.8 mg/dL (1.6-2.3)
[2024-07-10] MEDS: METOPROLOL TARTRATE 25 MG TAB PO SCH (11:59)
--- NOTE | 2024-07-10 13:29 | P.CRDCN ---
History of Present Illness Consult date: 07/10/24 History of present illness: HISTORY OF PRESENTING ILLNESS: 78-year-old male with past medical history of atrial fibrillation, pelvic fracture, initially presented to Dr. Prince office where he was noticed to have nausea and vomiting along with A-fib RVR for which she was sent to the ER. Cardiology was consulted for atrial fibrillation evaluation. Diagostics: Admission Labs: Hb 14.5, BUN 14, creatinine 0.6, troponin x 3 were negative, NT- proBNP 5.8, TSH 4.7 viral panel were negative Admission EKG: A-fib RVR heart rate 120 bpm, right bundle branch block Cardio relavant imaging: Chest x-ray showed hyperinflated lungs. No significant congestion or consolidation REVIEW OF SYSTEMS: 14 point review of system is negative except what is mentioned above in HPI. PHYSICAL EXAMINATION: Neck: Brisk carotid upstroke, no jugular venous distention. Lungs: Clear to auscultation. Heart: Regular rate and rhythm, S1-S2, , no murmur or rub. Abdomen: Soft nontender, positive bowel sounds. Extremities: No edema, intact distal pulses. Neuro: Alert, oritented, no focal deficits. Detailed neuro exam was not performed. ASSESSMENT: # Atypical chest pain, ruled out of ACS with negative ECG and troponin # Atrial fibrillation with RVR. Currently rate controlled. Prior history of persistent A-fib # Pelvic fracture in past PLAN: Discontinue Cardizem drip. Start metoprolol 25 mg twice daily. Continue Eliquis 5 mg twice daily. Patient's hemoglobin is stable no signs of active bleeding. Once patient turns 80, reduce Eliquis to 2.5 mg twice daily. Obtain updated echocardiogram If patient is symptomatically better, and rate controlled tomorrow, plan for discharging tomorrow with recommended outpatient follow-up further rhythm control strategy evaluation on outpatient basis and ischemic evaluation. Micheal Junior MD, FACC, RPVI Thank you for allowing [facility] to participate in this patient's care. Feel free to reach out in case of any followup questions. Past Medical History Past Medical History: Unable to Obtain History of Any Multi-Drug Resistant Organisms: None Reported Past Surgical History: Appendectomy, Orthopedic Surgery Additional Past Surgical History / Comment(s): ortho- left femur Past Anesthesia/Blood Transfusion Reactions: No Reported Reaction Past Psychological History: No Psychological Hx Reported Smoking Status: Never smoker Past Alcohol Use History: None Reported Past Drug Use History: Marijuana Medications and Allergies Home Medications Medication Instructions Recorded Confirmed Type Apixaban [Eliquis] 5 mg PO HS 11/01/23 07/09/24 History Atorvastatin [Lipitor] 40 mg PO HS 11/01/23 07/09/24 History Ammonium Lactate Lotion 1 applic TOPICAL BID 07/09/24 07/09/24 History [Lac-Hydrin 12% Lotion] Escitalopram [Lexapro] 5 mg PO HS 07/09/24 07/09/24 History Allergies Allergy/AdvReac Type Severity Reaction Status Date / Time No Known Allergies Allergy Verified 07/09/24 18:56 Physical Exam Vitals: Vital Signs Temp Pulse Pulse Pulse Resp BP BP 07/10/24 07:00 98.1 F 63 16 07/10/24 02:15 91 16 07/10/24 02:00 97.8 F 91 16 107/72 07/09/24 21:23 91 17 07/09/24 20:00 98.6 F 97 17 121/89 07/09/24 19:54 77 17 104/69 07/09/24 19:00 80 20 98/65 07/09/24 18:04 117 H 18 121/97 07/09/24 15:44 97.9 F 72 18 100/67 BP Pulse Ox 07/10/24 07:00 112/67 97 07/10/24 02:15 07/10/24 02:00 98 07/09/24 21:23 07/09/24 20:00 98 07/09/24 19:54 98 07/09/24 19:00 98 07/09/24 18:04 99 07/09/24 15:44 97 Intake and Output 07/09/24 07/10/24 07/10/24 22:59 06:59 14:59 Output Total 300 200 Balance -300 -200 Output: Urine 300 200 Other: Voiding Method Urinal Urinal Toilet # Voids 0 Weight 54.431 kg Results 07/09/24 17:27 07/09/24 17:27 Cardiac Enzymes 07/09/24 07/09/24 07/09/24 Range/Units 17:27 17:27 19:45 AST 54 (17-59) U/L Troponin I <0.012 <0.012 (0.000-0.034) ng/mL 07/09/24 Range/Units 23:35 AST (17-59) U/L Troponin I <0.012 (0.000-0.034) ng/mL Coagulation 07/09/24 Range/Units 17:27 PT 13.4 H (10.0-12.5) sec APTT 24.4 (22.0-30.0) sec CBC 07/09/24 Range/Units 17:27 WBC 6.6 (3.8-10.6) k/uL RBC 4.27 L (4.30-5.90) m/uL Hgb 14.5 (13.0-17.5) gm/dL Hct 43.1 (39.0-53.0) % Plt Count 121 L (150-450) k/uL Comprehensive Metabolic Panel 07/09/24 Range/Units 17:27 Sodium 136 L (137-145) mmol/L Potassium 4.6 (3.5-5.1) mmol/L Chloride 102 (98-107) mmol/L Carbon Dioxide 28 (22-30) mmol/L BUN 14 (9-20) mg/dL Creatinine 0.61 L (0.66-1.25) mg/dL Glucose 120 H (74-99) mg/dL Calcium 8.8 (8.4-10.2) mg/dL AST 54 (17-59) U/L ALT 30 (4-49) U/L Alkaline Phosphatase 112 (38-126) U/L Total Protein 6.2 L (6.3-8.2) g/dL Albumin 3.5 (3.5-5.0) g/dL Current Medications Generic Name Dose Route Start Last Admin Trade Name Freq PRN Reason Stop Dose Admin Acetaminophen 650 mg 07/09/24 18:51 Acetaminophen Tab 325 Mg Tab PO Q6HR PRN Mild Pain or Fever > 100.5 Hydrocodone Bitart/Acetaminophen 1 each 07/09/24 18:51 Hydrocodone/Apap 5-325mg 1 Each Tab PO Q6HR PRN Moderate Pain (Scale 4 to 6) Al Hydroxide/Mg Hydroxide 15 ml 07/09/24 18:51 Mag Hydrox/Al Hydrox/Simeth 30 Ml Cup PO Q6HR PRN Indigestion Apixaban 5 mg 07/09/24 21:00 07/09/24 21:23 Apixaban 5 Mg Tab PO 5 mg HS HUANG Administration Protocol Atorvastatin Calcium 40 mg 07/09/24 21:00 07/09/24 21:23 Atorvastatin 40 Mg Tab PO 40 mg HS HUANG Administration Calcium Carbonate/Glycine 1,000 mg 07/09/24 18:51 Calcium Carbonate 500 Mg Chewable PO Q4HR PRN Dyspepsia Escitalopram Oxalate 5 mg 07/09/24 21:00 07/09/24 21:38 Escitalopram 5 Mg Tab PO 5 mg HS HUANG Administration Famotidine 20 mg 07/09/24 21:00 07/10/24 08:45 Famotidine 20 Mg Tab PO 20 mg BID HUANG Administration Metoprolol Tartrate 25 mg 07/10/24 11:00 07/10/24 11:59 Metoprolol Tartrate 25 Mg Tab PO 25 mg BID HUANG Administration Naloxone HCl 0.2 mg 07/09/24 18:51 Naloxone 0.4 Mg/Ml 1 Ml Vial IV Q2M PRN Opioid Reversal Ondansetron HCl 4 mg 07/09/24 18:51 Ondansetron 4 Mg/2 Ml Vial IVP Q8HR PRN Nausea And Vomiting Intake and Output 07/09/24 07/10/24 07/10/24 22:59 06:59 14:59 Output Total 300 200 Balance -300 -200 Output: Urine 300 200 Other: Voiding Method Urinal Urinal Toilet # Voids 0 Weight 54.431 kg 07/09/24 17:27 07/09/24 17:27
[2024-07-10 14:01] LABS: T4, Free (Free Thyroxine) 0.89 ng/dL (0.78-2.19)
--- NOTE | 2024-07-10 15:26 | P.HPIM ---
History of Present Illness H&P Date: 07/10/24 Chief Complaint: Pain/A-fib with RVR. HISTORY OF PRESENT ILLNESS: This is a 78-year-old male with a previous medical history significant for chronic atrial fibrillation, hypertension and hypertensive cardiovascular disease, mixed hyperlipidemia, psoriasis, major depressive disorder, chronic THC use, osteoarthritis, and osteoporosis, significant weight loss, patient presented to the office yesterday because of a 3 months follow-up, has been in the office while he was in the office he had an episode with palpitation when his heart rate went too fast, he went into A-fib with RVR with a heart rate of 140, he became sweaty lightheaded, he was having chest pain at the same time EMS was called and the patient was transported to the emergency department for evalu ation, patient did rule out for acute coronary syndrome but because of the presentation and because of the A-fib with RVR he was started on Cardizem drip, he was admitted to the hospital he was seen in consultation by cardiology, then he was taken off Cardizem drip, he was started on metoprolol 25 mg orally twice every day, he was kept on Eliquis 5 mg orally twice every day, patient will be kept in the hospital for another 24 hours for observation, he will have an echocardiogram for evaluation of LV function and wall motion abnormalities. REVIEW OF SYSTEMS: Constitutional: No documented fever, no chills, no night sweats. No weight change. No weakness, fatigue or lethargy. No daytime sleepiness. EENT: No headache. No blurred vision or double vision, no loss of vision. No loss of Hearing, no ringing in the ears, no dizziness. No nasal drainage or congestion. No epistaxis. No sore throat. Lungs: positive for shortness of breath, no cough, no sputum production. No wheezing. Reports dyspnea with activity. Cardiovascular: positive for chest pain, no lower extremity edema. No p alpitations. No paroxysmal nocturnal dyspnea. No orthopnea. positive for lightheadedness or dizziness. No syncopal episodes. Abdominal: Reports abdominal pain. No nausea, vomiting. No diarrhea. No constipation. No bloody or tarry stools reports loss of appetite. Genitourinary: No dysuria, increased frequency, urgency. No urinary retention. Musculoskeletal: No myalgias. positive for muscle weakness, positive for gait dysfunction, no frequent falls. No back pain. No neck pain. Integumentary: No wounds, no lesions. positive for Psoriatic rash or pruritus. No unusual bruising. No change in hair or nails. Neurologic: No aphasia. No facial droop. No change in mentation. No head injury. No headache. No paralysis. No paresthesia. Psychiatric: positive for depression. positive for anxiety. No mood swings. Endocrine: No abnormal blood sugars. No weight change. PAST MEDICAL HISTORY: Hypertension and hypertensive cardiovascular disease. Mixed hyperlipidemia. Persistent atrial fibrillation. Psoriasis. Osteoarthritis. Osteoporosis. Significant weight loss. Anxiety. Depression. PAST SURGICAL HISTORY: Left femur ORIF 2011 Appendectomy 1959. Left arm ORIF 2011. Colonoscopy 2014. Left femur ORIF 11/29/2023. SOCIAL HISTORY: Patient used to smoke many years ago he is worried about a pack every day for many many years, but he quit many years ago, he smokes marijuana on and off, he drinks alcohol, he denies drug use or abuse he lives with his . He uses a walker for ambulation. FAMILY HISTORY: Father at age of 55 from congestive heart failure, mother at age 54 from pancreatic cancer, patient had 9 brothers 1 had subarachnoid hemorrhage, 1 with psoriasis, 1 with osteoarthritis, the rest are healthy, patient had 6 sisters 1 at the age of 49 from pancreatic cancer, patient has a workup for pancreatic cancer underwent Jenifer-en-Y surgery, the others are healthy, patient has 2 sons alive and well, 1 daughter 55-year-old healthy. PHYSICAL EXAMINATION: General: This is a 78-year-old male sitting up in bed in no apparent distress. HEENT: Head is atraumatic, normocephalic, pupils were equal round reactive to light and recommendation, extraocular muscle movement were intact, sclera nonicteric, conjunctivae were pale, mucous membranes of the mouth are somewhat dry. Neck: Supple, no JVP, normal carotid upstroke bilaterally, no lymphadenopathy. Chest: Decreased breath sounds at the bases, few rhonchi, no expiratory wheezes, no chest wall tenderness, no intercostal retractions. Heart: First heart sound is normal, second heart sounds normal there is systolic ejection murmur 2/6 located left sternal border, irregular irregular due to atrial fibrillation. Abdomen: Soft, nontender, nondistended, positive bowel sounds. Extremities: There is no edema no calf tenderness DP +2 bilaterally. Neurologic examination: Patient is awake alert and oriented x3, cranial nerves II-12 appear grossly intact, muscle power were 5 out of 5 in upper extremities and 3 out of 5 in bilateral lower extremities, deep tendon reflexes normal bilaterally. ASSESSMENT AND PLAN: 1. Atrial fibrillation with rapid ventricular response. Patient was on Ca rdizem drip at 10 mg an hour, he was transition to metoprolol 25 mg orally twice every day, he was started back on Eliquis 5 mg orally twice every day, cardiology consultation appreciated, patient was ruled out for acute coronary syndrome, patient did have a chest x-ray in the emergency department did not show evidence of acute abnormalities, echocardiogram was done still pending at the time of dictation, I will keep the patient in the hospital for another 24 hours, he can be discharged home tomorrow morning. 2. Chest pain likely due to A-fib with RVR. Doubt CAD at this point in time, EKG did not show evidence of acute abnormalities, patient is doing better at this point in time, continue to monitor the patient very closely, echocardiogram was done still pending at the time of dictation. 3. Hypertension and hypertensive cardiovascular disease. Continue patient on metoprolol 25 mg orally twice every day, monitor the patient blood pressure very closely. 4. Mixed hyperlipidemia. Continue atorvastatin 40 mg once every day, monitor lipid panel, keep LDL 55-70. 5. History of psoriasis stable at this time. 6. Anxiety and depressive disorder. Continue Lexapro 5 mg orally once every day. 7. GERD with esophagitis. Continue patient on famotidine 20 mg orally twice every day. 8. DVT prophylaxis. Continue patient on Eliquis 5 mg orally twice every day. 9. GI prophylaxis. Continue famotidine 20 mg orally twice every day. 10. Observation. 11. Full code Past Medical History Past Medical History: Unable to Obtain History of Any Multi-Drug Resistant Organisms: None Reported Past Surgical History: Appendectomy, Orthopedic Surgery Additional Past Surgical History / Comment(s): ortho- left femur Past Anesthesia/Blood Transfusion Reactions: No Reported Reaction Past Psychological History: No Psychological Hx Reported Smoking Status: Never smoker Past Alcohol Use History: None Reported Past Drug Use History: Marijuana Medications and Allergies Home Medications Medication Instructions Recorded Confirmed Type Apixaban [Eliquis] 5 mg PO HS 11/01/23 07/09/24 History Atorvastatin [Lipitor] 40 mg PO HS 11/01/23 07/09/24 History Ammonium Lactate Lotion 1 applic TOPICAL BID 07/09/24 07/09/24 History [Lac-Hydrin 12% Lotion] Escitalopram [Lexapro] 5 mg PO HS 07/09/24 07/09/24 History Allergies Allergy/AdvReac Type Severity Reaction Status Date / Time No Known Allergies Allergy Verified 07/09/24 18:56 Physical Exam Vitals: Vital Signs Temp Pulse Pulse Pulse Resp BP BP 07/10/24 07:00 98.1 F 63 16 07/10/24 02:15 91 16 07/10/24 02:00 97.8 F 91 16 107/72 07/09/24 21:23 91 17 07/09/24 20:00 98.6 F 97 17 121/89 07/09/24 19:54 77 17 104/69 07/09/24 19:00 80 20 98/65 07/09/24 18:04 117 H 18 121/97 07/09/24 15:44 97.9 F 72 18 100/67 BP Pulse Ox 07/10/24 07:00 112/67 97 07/10/24 02:15 07/10/24 02:00 98 07/09/24 21:23 07/09/24 20:00 98 07/09/24 19:54 98 07/09/24 19:00 98 07/09/24 18:04 99 07/09/24 15:44 97 Intake and Output 07/09/24 07/10/24 07/10/24 22:59 06:59 14:59 Output Total 300 200 Balance -300 -200 Output: Urine 300 200 Other: Voiding Method Urinal Urinal Toilet # Voids 0 Weight 54.431 kg Results CBC & Chem 7: 07/09/24 17:27 07/09/24 17:27 Labs: Abnormal Lab Results - Last 24 Hours (Table) 07/09/24 07/09/24 07/09/24 Range/Units 17:27 17:27 17:27 RBC 4.27 L (4.30-5.90) m/uL MCV 100.8 H (80.0-100.0) fL Plt Count 121 L (150-450) k/uL PT 13.4 H (10.0-12.5) sec INR 1.3 H (<1.2) Sodium 136 L (137-145) mmol/L Creatinine 0.61 L (0.66-1.25) mg/dL Glucose 120 H (74-99) mg/dL Total Protein 6.2 L (6.3-8.2) g/dL Lipase 10 L (23-300) U/L TSH (0.465-4.680) mIU/L 07/10/24 Range/Units 11:09 RBC (4.30-5.90) m/uL MCV (80.0-100.0) fL Plt Count (150-450) k/uL PT (10.0-12.5) sec INR (<1.2) Sodium (137-145) mmol/L Creatinine (0.66-1.25) mg/dL Glucose (74-99) mg/dL Total Protein (6.3-8.2) g/dL Lipase (23-300) U/L TSH 4.720 H (0.465-4.680) mIU/L Thrombosis Risk Factor Assmnt - Choose All That Apply Any of the Below Risk Factors Present?: No Other Risk Factors: Yes Each Risk Factor Represents 3 Points: Age 75 years or older Other congenital or acquired thrombophilia - If yes, enter type in comment: No Thrombosis Risk Factor Assessment Total Risk Factor Score: 3 Thrombosis Risk Factor Assessment Level: Moderate Risk
--- NOTE | 2024-07-10 16:15 | CA ---
Transthoracic Echo Report Name: Jamshid Leiva Age: 78 Gender: M : 1945 Exam Date: 07/10/2024 13:39 Exam Location: [facility] Ht (in): 70 Wt (lb): 120 Ordering Physician: Micheal Junior MD ([id number]) Attending/Referring Phys: [employer] Radha Giron RDCS Procedure CPT: Indications: atrial fibrillation Cardiac Hx: Technical Quality: Fair Contrast 1: Total Dose (mL): Contrast 2: Total Dose (mL): MEASUREMENTS (Male / Female) Normal Values 2D ECHO LV Diastolic Diameter PLAX 4.7 cm 4.2 - 5.9 / 3.9 - 5.3 cm LV Systolic Diameter PLAX 3.0 cm IVS Diastolic Thickness 0.8 cm 0.6 - 1.0 / 0.6 - 0.9 cm LVPW Diastolic Thickness 0.9 cm 0.6 - 1.0 / 0.6 - 0.9 cm LV Relative Wall Thickness 0.4 RV Internal Dim ED PLAX 3.7 cm LVOT Diameter 1.6 cm Aortic Root Diameter 3.8 cm LV Diastolic Volume MOD BP 50.9 cm??? 67 - 155 / 56 - 104 cm??? LV Systolic Volume MOD BP 31.7 cm??? 22 - 58 / 19 - 49 cm??? LV Ejection Fraction MOD BP 37.7 % >= 55 % LV Cardiac Index MOD BP 685.1 cm???/min???m??? LV Diastolic Volume MOD 4C 35.1 cm??? LV Systolic Volume MOD 4C 23.1 cm??? LV Ejection Fraction MOD 4C 34.1 % LV Cardiac Index MOD 4C 427.9 cm???/min???m??? LV Diastolic Length 4C 5.7 cm LV Systolic Length 4C 5.0 cm LV Diastolic Volume MOD 2C 63.5 cm??? LV Systolic Volume MOD 2C 38.3 cm??? LV Ejection Fraction MOD 2C 39.6 % LV Cardiac Index MOD 2C 900.1 cm???/min???m??? LV Diastolic Length 2C 6.7 cm LV Systolic Length 2C 5.6 cm LA Volume 163.0 cm??? 18 - 58 / 22 - 52 cm??? LA Volume Index 100.4 cm???/m??? 16 - 28 cm???/m??? DOPPLER AV Peak Velocity 88.1 cm/s AV Peak Gradient 3.1 mmHg AV Mean Velocity 54.4 cm/s AV Mean Gradient 1.3 mmHg AV Velocity Time Integral 14.1 cm AI Peak Velocity 443.7 cm/s AI Peak Gradient 78.8 mmHg AI Pressure Half Time 787.7 ms LVOT Peak Velocity 60.8 cm/s LVOT Peak Gradient 1.5 mmHg LVOT Velocity Time Integral 11.7 cm LVOT Stroke Volume 24.2 cm??? LVOT Stroke Volume Index 14.4 ml/m??? LVOT Cardiac Index 864.9 cm???/min???m??? AV Area Cont Eq vti 1.7 cm??? AV Area Cont Eq pk 1.4 cm??? MV Area PHT 3.2 cm??? Mitral E Point Velocity 61.0 cm/s Mitral A Point Velocity 0.1 cm/s Mitral E to A Ratio 598.9 MV Deceleration Time 235.7 ms TR Peak Velocity 221.2 cm/s TR Peak Gradient 19.6 mmHg Right Ventricular Systolic Press 23.5 mmHg FINDINGS Left Ventricle Moderately decreased left ventricular ejection fraction. Left ventricular cavity size normal. Left ventricular wall thickness normal. Reduced global left ventricular systolic function. Left ventricular ejection fraction is estimated at 35 %. Right Ventricle Severe right ventricular dilatation. Hypokinetic right ventricular free wall. Right Atrium Severe right atrial dilatation. Left Atrium Severely increased left atrial volume. Moderately increased left atrial area. Mitral Valve Structurally normal mitral valve. [id number] mitral regurgitation. Aortic Valve Aortic valve not well visualized. Mild aortic regurgitation. No aortic stenosis. Tricuspid Valve Structurally normal tricuspid valve. Moderate tricuspid regurgitation. Pulmonic Valve Pulmonic valve not well visualized. Pericardium No pericardial effusion. Aorta Mildly dilated aortic annulus. CONCLUSIONS LVEF 35% Globally reduced LV systolic function Severely dilated RV with reduced systolic function Severe biatrial dilatation Moderate mitral regurgitation Mild aortic regurgitation Moderate tricuspid regurgitation Previewed by: Dr Micheal Junior (Electronically Signed) Final Date: 10 July 2024 16:14
[2024-07-10] MEDS: SACUBITRIL/VALSARTAN 24 MG-26 MG TABLET PO SCH (17:13)
[2024-07-10 19:31] LABS: Chol/HDL Ratio 4.02 Ratio; LDL Cholesterol,Calculated 56.8 mg/dL (0.0-131.0)
[2024-07-10] MEDS: APIXABAN 5 MG TAB PO SCH (20:14)
[2024-07-11 07:13] VITALS: BP 125/82; PULSE 81; RESP 15; TEMP 97.5
[2024-07-11 11:55] VITALS: BMI 17.2
--- NOTE | 2024-07-11 11:59 | P.DS ---
Providers Date of admission: 07/09/24 18:53 Expected date of discharge: 07/11/24 Attending physician: Rula Rodriguez Consults: 07/09/24 18:51 Consult Physician Routine Consulting Provider: Micheal Junior Consult Reason/Comments: A fib RVR, atypical chest pain Do you want consulting provider notified?: Yes, Notify in am Primary care physician: Rula Rodriguez Hospital Course: HISTORY OF PRESENT ILLNESS: This is a 78-year-old male with a previous medical history significant for chronic atrial fibrillation, hypertension and hypertensive cardiovascular disease, mixed hyperlipidemia, psoriasis, major depressive disorder, chronic THC use, osteoarthritis, and osteoporosis, significant weight loss, patient presented to the office yesterday because of a 3 months follow-up, has been in the office while he was in the office he had an episode with palpitation when his heart rate went too fast, he went into A-fib with RVR with a heart rate of 140, he became sweaty lightheaded, he was having chest pain at the same time EMS was called and the patient was transported to the emergency department for evaluation, patient did rule out for acute coronary syndrome but because of the presentation and because of the A-fib with RVR he was started on Cardizem drip, he was admitted to the hospital he was seen in consultation by cardiology, then he was taken off Cardizem drip, he was started on metoprolol 25 mg orally twice every day, he was kept on Eliquis 5 mg orally twice every day, patient will be kept in the hospital for another 24 hours for observation, he will have an ech ocardiogram for evaluation of LV function and wall motion abnormalities. 2: Patient sitting up in bed in no apparent distress, he was seen yesterday in consultation by cardiology who recommended to increase metoprolol to 25 mg orally twice every day, Eliquis 5 mg orally twice every day, he continues to be in atrial fibrillation his heart rate is controlled about 75-80, he is ambulating very well using his walker, his echocardiogram did show evidence of severe global hypokinesia with ejection fraction of 35%, severely dilated right ventricle as well moderate mitral regurgitation and mild aortic regurgitation, and reduced right ventricular function as well, patient will need to follow-up with cardiology as an outpatient, he will continue to be on metoprolol 25 mg orally twice every day as well as Eliquis, he will need to follow-up with cardiology as soon as possible he can be discharged home if he is cleared by cardiology. Patient also also did have an ultrasound of the gallbladder that showed evidence of cholelithiasis as well as right renal cyst, there is an evidence of mid aortic thrombus, Discharge diagnoses: 1. Atrial fibrillation with rapid ventricular response. 2. Chest pain likely due to A-fib with RVR. 3. 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 Ejection fraction 35% 4. Moderate mitral regurgitation and mild mitral regurgitation 5. Severely reduced RV function with dilatation of the right ventricle and severely dilated left atrium right atrium 6. Hypertension and hypertensive cardiovascular disease. Continue patient on metoprolol 25 mg orally twice every day, monitor the patient blood pressure very closely. 7. Mixed hyperlipidemia. Continue atorvastatin 40 mg once every day, monitor lipid panel, keep LDL 55-70. 8. History of psoriasis stable at this time. 9. Anxiety and depressive disorder. Continue Lexapro 5 mg orally once every day. 10. GERD with esophagitis. Continue patient on famotidine 20 mg orally twice every day. 11. Aortic thrombus. 12. Cholelithiasis. 13. Right renal cyst. Patient Condition at Discharge: Stable Plan - Discharge Summary Discharge Rx Participant: No New Discharge Prescriptions: No Action Escitalopram [Lexapro] 5 mg PO HS Ammonium Lactate Lotion [Lac-Hydrin 12% Lotion] 1 applic TOPICAL BID Atorvastatin [Lipitor] 40 mg PO HS Apixaban [Eliquis] 5 mg PO HS Discharge Medication List Apixaban [Eliquis] 5 mg PO HS 11/01/23 [History] Atorvastatin [Lipitor] 40 mg PO HS 11/01/23 [History] Ammonium Lactate Lotion [Lac-Hydrin 12% Lotion] 1 applic TOPICAL BID 07/09/24 [History] Escitalopram [Lexapro] 5 mg PO HS 07/09/24 [History] Follow up Appointment(s)/Referral(s): Rula Rodriguez MD [Primary Care Provider] - 1-2 days
== END 2024-07-11 14:58 | disposition home health service (06) ==
LOC: EC 15:41 → 6NMEDSUR 18:53
PROVIDERS: ADMIT Internal Medicine; ATTEND Internal Medicine
DX: I48.19 Other persistent atrial fibrillation (principal); E78.2 Mixed hyperlipidemia; I11.9 Hypertensive heart disease without heart failure; F32.9 Major depressive disorder, single episode, unspecified; L40.9 Psoriasis, unspecified; M19.90 Unspecified osteoarthritis, unspecified site; M81.0 Age-related osteoporosis without current pathological fracture; R63.4 Abnormal weight loss; F41.9 Anxiety disorder, unspecified; K21.00 Gastro-esophageal reflux disease with esophagitis, without bleeding; I42.8 Other cardiomyopathies; I34.0 Nonrheumatic mitral (valve) insufficiency; I74.10 Embolism and thrombosis of unspecified parts of aorta; K80.20 Calculus of gallbladder without cholecystitis without obstruction; N28.1 Cyst of kidney, acquired; Z68.1 Body mass index [BMI] 19.9 or less, adult; Z11.52 Encounter for screening for COVID-19; Z87.891 Personal history of nicotine dependence; Z79.01 Long term (current) use of anticoagulants; Z79.899 Other long term (current) drug therapy; Z82.49 Family history of ischemic heart disease and other diseases of the circulatory system
CPT/HCPCS: 96366 ×3; 96365; 99285; 36415; 93005; 93306; 84439; 83880; 80061; 80053; 84443; 82150; 83690; 83735 ×2; 84484; 85025; 85610; 85730; 83036; 87636; 71046; 76705; G0378 ×3

== ENCOUNTER 2024-08-06 08:47 | Day surgery (SDC) | payer MEDICARE, BC ==
[2024-08-05 09:32] VITALS: BMI 16.6
[2024-08-06] MEDS ORDERED: SODIUM CHLORIDE 0.9% 1,000 ML IV SCH (09:00)
[2024-08-06 09:28] VITALS: TEMP 97.1
[2024-08-06] MEDS: IV FLUID CONTINUATION 1,000 ML IV ONE ×2 (09:36→11:12)
[2024-08-06] MEDS: SODIUM CHLORIDE 0.9% 500 ML 500 ML IV ONE (09:36)
[2024-08-06] MEDS ORDERED: LIDOCAINE 1% INJ 10MG/ML (20 ML MDV) ONE (10:00)
[2024-08-06] MEDS ORDERED: PROPOFOL 10 MG/ML 20 ML VIAL IV ONE (10:00)
[2024-08-06] MEDS: BENZOCAINE SPRAY 1 EACH MM ONE (10:01)
[2024-08-06] MEDS: FUROSEMIDE 10 MG/ML 4 ML VIAL IV STA (10:57)
[2024-08-06 11:15] VITALS: RESP 16
[2024-08-06 11:35] VITALS: BP 124/81; PULSE 84
--- NOTE | 2024-08-06 16:21 | P.TEE ---
Date of Procedure: 08/06/24 Description of Procedure(s): Procedure performed: 1. Transesophageal Echocardiogram. 2. Synchronized Cardioversion. 3. Bubble study Indications: Persistent atrial fibrillation Consent: I have discussed the risks, benefits and alternative therapies for the above-mentioned procedure. The patient has indicated understanding and acceptance of the risks of the procedure. Signed consent was obtained and was placed in the paper chart. Moderate conscious sedation: Moderate conscious sedation was administered by anesthesia, see separate report. Procedural Steps: Timeout was performed in usual fashion. Patient's heart rate, blood pressure, oxygen saturation and ECG were monitored. After achieving appropriate moderate conscious sedation, HAIM HAIM probe was advanced without difficulty and without any immediate complications to the esophagus. HAIM study was performed with color flow doppler, pulsed wave doppler and continuous wave doppler. Agitated saline bubbles were injected to assess for any intra-atrial shunt. The probe was then removed. SYNCHRONIZED CARDIOVERSION After making sure that there is no evidence of intracardiac thrombus, pacer pads were placed and secured on patients chest and back. Synchronized cardioversion was perfromed using [150] J. [1] attempt. Sinus rhythm was confirmed with a 12 lead EKG. Patient tolerated the procedure well. Patient was transferred to the post procedure area in stable and satisfactory condition. Complications: none Blood loss: none FINDINGS Left Atrium: Severely dilated left atrium. No evidence of mass or thrombus seen Left Atrial Appendage: No evidence of thrombus or mass seen in JERMAINE. Slow velocities and spontaneous echogenic contrast. Inter atrial septum: Intact inter-atrial septum. No evidence of atrial septal defect or patent foramen ovale on color doppler. No evidence of [id number] intracardiac shunting on bubble study. Left Ventricle: Normal LV size with normal global LV systolic function. Right Atrium: Moderate RA dilatation Right Ventricle: Dilated RV with mildly reduced systolic function. Aortic Valve: Trileaflet aortic valve with mild regurgitation. Mitral Valve: Moderate functional mitral regurgitation. Pulmonic Valve: Mild pulmonic regurgitation Tricuspid Valve: Moderate tricuspid regurgitation Ascending aorta, Aortic root and Aortic arch: Aortic root measures 4.0 cm, ascending aorta 3.7 cm Descending aorta: Mild intimal thickening. No pericardial effusion CONCLUSION: Severe LA dilatation, moderate RA dilatation Dilated RV with reduced systolic function Normal global LV systolic function Moderate MR, moderate TR, mild aortic regurgitation Successful synchronized cardioversion 1 attempt with 150 J. Plan Give 1 dose of Lasix 40 mg IV before discharge Continue anticoagulation and amiodarone. Recommend outpatient follow-up with Dr. Junior in next 1 week and recommend cardiac MRI Micheal Junior MD, RPVI, FACC Thank you for allowing [facility] to participate in this patient's care. Feel free to reach out in case of any followup questions.
== END 2024-08-06 12:08 | disposition home or self-care (01) ==
LOC: OR 08:47
PROVIDERS: ATTEND Student in an Organized Health Care Education/Training Program
DX: I48.19 Other persistent atrial fibrillation (principal); I08.3 Combined rheumatic disorders of mitral, aortic and tricuspid valves; I11.0 Hypertensive heart disease with heart failure; I50.20 Unspecified systolic (congestive) heart failure; I37.1 Nonrheumatic pulmonary valve insufficiency; I42.0 Dilated cardiomyopathy; E78.5 Hyperlipidemia, unspecified; K21.9 Gastro-esophageal reflux disease without esophagitis; R73.03 Prediabetes; Z79.899 Other long term (current) drug therapy; Z82.49 Family history of ischemic heart disease and other diseases of the circulatory system
CPT/HCPCS: 93312; 93320; 93325; 92960; J1940; J2003; J2704

== ENCOUNTER → 2024-10-19 | Outpatient (CLI) | payer MEDICARE, BC ==
[2024-10-19 13:09] LABS: African American GFR (CKD) >90 (>60 ml/min/1.73 sqM); Blood Urea Nitrogen 17 mg/dL (9-20); Non-African American GFR(CKD) >90 (>60 ml/min/1.73 sqM)
--- NOTE | 2024-10-19 15:10 | CT ---
EXAMINATION TYPE: CT urogram wo/w con CT DLP: 973.4 mGycm, Automated exposure control for dose reduction was used. DATE OF EXAM: 10/19/2024 2:18 PM COMPARISON: CT urogram 07/20/2021 CLINICAL INDICATION:Male, 79 years old with history of R82.89 OTHER ABN FINDINGS ON CYTOLOG AND HISTO LOG; PHH, abnormal urine labs TECHNIQUE: Urogram of the abdomen and pelvis was performed before and after the administration of 100 cc of IV c ontrast Isovue 300 contrast. Delayed imaging was performed. Coronal and sagittal reformats were perfo rmed. One or more CT dose reduction strategies were utilized during this examination. 2D and 3D recon structions are performed to assist visualization of the urinary tract on a separate workstation. FINDINGS: GENITOURINARY: RIGHT KIDNEY AND URETER: Nonobstructing 7 mm calculus within the right renal pelvis. No hydronephrosi s or hydroureter. Increased size of posterior right mid kidney simple nonenhancing 2.4 cm cyst. Previ ously 1.2 cm. No suspicious enhancing renal lesion. No urothelial lesions: no filling defect, dilatio n, stricture or wall thickening. LEFT KIDNEY AND URETER: Nonobstructing mid pole 6 mm calculus. No hydronephrosis or hydroureter. No r enal mass or other lesions. No urothelial lesions: no filling defect, dilation, stricture or wall thi ckening. URINARY BLADDER: Mildly well distended. No calculi, masses or other lesions appear somewhat trabecula bethanie in appearance. REPRODUCTIVE: Coarse central prostate calcifications. The prostate gland does not appear enlarged.. ABDOMEN LIVER: Enlarged measuring 20.1 cm in CC dimension. Diffusely hyperdense appearance of the liver again . Can be seen with a variety of etiologies. Stable subcentimeter hypodense focus within the left hepa tic lobe which is too small to accurately characterize but likely represents a cyst. GALLBLADDER AND BILE DUCTS: Cholelithiasis. No biliary duct dilatation. PANCREAS: Unremarkable. SPLEEN: Unremarkable. ADRENAL GLANDS: Unremarkable. STOMACH AND BOWEL: Colonic diverticula without evidence for acute diverticulitis.. No evidence of bow el obstruction. PERITONEUM: No evidence of pneumoperitoneum, free fluid, or adenopathy. VASCULATURE: Moderate atherosclerotic calcification of the aorta and its branches. 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 Pelvic phleboliths. MUSCULOSKELETAL: No acute osseous abnormalities. Advanced diffuse bone demineralization. Postsurgical changes from fixation hardware involving the left visualized femur. Mild dextrocurvature of the visu alized thoracolumbar spine. Multilevel mild degenerative disc disease. SOFT TISSUE/ABDOMINAL WALL: Unremarkable. LOWER CHEST: Trace left and small to moderate size right pleural effusion with associated atelectasis . No suspicious pulmonary nodule or mass. Cardiomegaly with significant biatrial enlargement. Small v isualize coronary arterial calcifications. Removal healed right-sided rib fractures. IMPRESSION: 1. No evidence for obstructive uropathy. Nonobstructing left renal 6 mm calculus with additional nono bstructing right renal pelvis 7 mm calculus. 2. Increasing size of nonenhancing simple right renal 2.4 cm cyst. No follow-up recommended. No suspi cious enhancing renal/urothelial neoplasm. 3. 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 Recommend annual surveillance with follow-up ultrasound in one year. 4. Colonic diverticulosis without evidence for acute diverticulitis. 5. Cholelithiasis. 6. Hepatomegaly with similar diffuse hyperattenuated appearance of the liver which can be seen with a variety of etiologies. 7. Trace left and small to moderate size right pleural effusion with associated atelectasis. 8. Cardiomegaly with significant biatrial enlargement. [facility], , 10/19/2024 3:07 PM
== END | disposition home or self-care (01) ==
LOC: RADCTMAIN 12:13
PROVIDERS: ATTEND Internal Medicine
DX: K80.20 Calculus of gallbladder without cholecystitis without obstruction (principal); K57.30 Diverticulosis of large intestine without perforation or abscess without bleeding; J90 Pleural effusion, not elsewhere classified; N20.0 Calculus of kidney; R82.89 Other abnormal findings on cytological and histological examination of urine; I51.7 Cardiomegaly; J98.11 Atelectasis; N28.1 Cyst of kidney, acquired; I71.40 Abdominal aortic aneurysm, without rupture, unspecified
CPT/HCPCS: 82565; 84520; 74178; 36415; 74400; Q9967

== ENCOUNTER → 2024-11-27 | Outpatient (CLI) | payer MEDICARE, BC ==
[2024-11-27 18:27] LABS: Basophils # (A) 0.05 X 10*3/uL (0.00-0.10); Basophils % (A) 0.8 %; Eosinophils # (A) 0.25 X 10*3/uL (0.04-0.35); Eosinophils % (A) 4.2 %; HCT 46.8 % (39.6-50.0); HGB 15.7 g/dL (13.0-17.0); Lymphocytes # (A) 1.26 X 10*3/uL (0.90-5.00); MCH 33.8 pg (27.0-32.0); MCHC 33.5 g/dL (32.0-37.0); MCV 100.6 FL (80.0-97.0); Mean Platelet Volume 11.6 FL (9.5-12.2); Monocytes # (A) 0.52 X 10*3/uL (0.20-1.00); Monocytes % (A) 8.7 %; NRBC Per 100 WBC 0 X 10*3/uL (0.00-0.01); Neutrophils # (A) 3.88 X 10*3/uL (1.80-7.70); Neutrophils % (A) 64.5 %; Platelet Count 147 X 10*3/uL (140-440); RBC 4.65 X 10*6/uL (4.40-5.60); RDW 13.5 % (11.5-14.5); WBC 6.01 X 10*3/uL (4.50-10.00)
[2024-11-27 19:17] LABS: BUN/Creat Ratio 21.86 Ratio (12.00-20.00); Blood Urea Nitrogen 15.3 mg/dL (9.0-27.0); Calcium 8.6 mg/dL (8.7-10.3); Carbon Dioxide 26.1 mmol/L (21.6-31.8); Chloride 101 mmol/L (96-109); Glucose 151 mg/dL (70-110); Potassium 4.9 mmol/L (3.5-5.5); Sodium 136 mmol/L (135-145)
[2024-11-27 19:21] LABS: Appearance,Urine Turbid (Clear); Bilirubin,Urine Small (Negative); Blood,Urine Large (Negative); Color,Urine Orange (Yellow); Ketones,Urine Negative (Negative); Nitrite,Urine Positive (Negative); Specific Gravity,Urine 1.023 (1.001-1.030)
[2024-11-27 20:16] LABS: Bacteria,Urine 2+ (None Seen); Calcium Oxalate Crystals,Urine Present (None Seen)
== END | disposition home or self-care (01) ==
LOC: LABWHC1 13:13
PROVIDERS: ATTEND Urology
DX: Z01.812 Encounter for preprocedural laboratory examination (principal); N20.0 Calculus of kidney
CPT/HCPCS: 36415; 80048; 81001; 85025; 87086

== ENCOUNTER 2024-12-01 05:56 | Day surgery (SDC) | payer MEDICARE, BC ==
--- NOTE | 2024-11-26 12:10 | P.HPIHPCON ---
History of Present Illness H&P Date: 11/26/24 Chief Complaint: Bilateral renal stone This is a 79-year-old male with history of bilateral renal stone, some measuring 7 mm in the right renal pelvis and 6 mm in the left kidney. He is symptomatic from his right sided renal stone. At this time he would like to address both of his stones. Option of bilateral ureteroscopy with holmium laser was discussed. He was aware of the risk which include but not limited to bleeding, infection, injury to the ureter. Risk of anesthesia was also discussed. He understood all the risk and agreed to proceed Consent for Procedure: I have explained the operation/procedure to the patient, including the risks, benefits, side effects, alternative therapies (including not receiving the proposed treatment or service), the likelihood of the patient achieving his/her goals, and potential recuperation problems for the procedure/sedation/analgesia, as well as any blood products, if indicated. I also explained to the patient the risks, benefits and side effects of the alternatives, as well as the risks rela bethanie to not receiving the proposed procedure, care, treatment, or services. Past Medical History Past Medical History: Atrial Fibrillation, Hyperlipidemia, Hypertension, Osteoarthritis (OA), Skin Disorder Additional Past Medical History / Comment(s): dry skin on right leg. Pt seen in [facility] 07/26/2024 for blood in the urine History of Any Multi-Drug Resistant Organisms: None Reported Past Surgical History: Appendectomy, Orthopedic Surgery Additional Past Surgical History / Comment(s): left femur surg with rods x2 Past Anesthesia/Blood Transfusion Reactions: No Reported Reaction Smoking Status: Former smoker - Past Family History Father Family Medical History: Myocardial Infarction ([place]) Mother Family Medical History: Cancer Additional Family Medical History / Comment(s): Pancreatic Sister(s) Family Medical History: Cancer Additional Family Medical History / Comment(s): Pancreatic Medications and Allergies Home Medications Medication Instructions Recorded Confirmed Type Atorvastatin [Lipitor] 40 mg PO HS 11/01/23 08/06/24 History Ammonium Lactate Lotion 1 applic TOPICAL BID 07/09/24 08/06/24 History [Lac-Hydrin 12% Lotion] Escitalopram [Lexapro] 5 mg PO HS 07/09/24 08/06/24 History Apixaban [Eliquis] 5 mg PO BID #60 tab 02/01/25 02/27/25 Rx Famotidine [Pepcid] 20 mg PO BID #60 tab 07/11/24 08/06/24 Rx Metoprolol Tartrate [Lopressor] 25 mg PO BID #60 tab 07/11/24 08/06/24 Rx Sacubitril/Valsartan [Entresto 24 0.5 each PO BID #60 tab 07/11/24 08/06/24 Rx mg-26 mg Tablet] Amiodarone [Cordarone] 200 mg PO BID 07/23/24 08/06/24 History Isosorbide Mononitrate ER [Imdur] 15 mg PO DAILY 07/23/24 08/06/24 History Aspirin [Adult Low Dose Aspirin EC] 81 mg PO QAM 08/05/24 08/06/24 History Allergies Allergy/AdvReac Type Severity Reaction Status Date / Time No Known Allergies Allergy Verified 08/06/24 09:39 Surgical - Exam - General no distress, moderate pain - Eyes normal ocular movement, no pale - ENT normal nares, normal mucosa - Respiratory normal expansion, normal respiratory effort - Abdomen Abdomen: soft, non tender Assessment and Plan Assessment: OR for bilateral ureteroscopy, laser lithotripsy, stone basketing and stent insertion
[2024-12-01] MEDS ORDERED: LIDOCAINE 1% (10MG/ML) FOR IV START INTRADERMA PRN (06:15)
[2024-12-01] MEDS: IV FLUID CONTINUATION 1,000 ML IV ONE (06:42)
[2024-12-01 06:53] VITALS: RESP 16
[2024-12-01] MEDS ORDERED: fentaNYL (PF) 50 MCG/ML 2 ML AMP IVP PRN (07:00)
[2024-12-01] MEDS ORDERED: MIDAZOLAM 2 MG/2 ML VIAL IV PRN (07:00)
[2024-12-01] MEDS ORDERED: HYDROmorphone 0.5 MG/0.5 ML SYRINGE IVP PRN (07:00)
[2024-12-01] MEDS: LACTATED RINGERS 1,000 ML IV SCH (07:05)
[2024-12-01] MEDS: ONDANSETRON 4 MG/2 ML VIAL IVP ONE (07:06)
[2024-12-01] MEDS: DEXAMETHASONE SOD PHOSPHATE 4 MG/ML 1 ML VIAL IV ONE (07:06)
--- NOTE | 2024-12-01 07:24 | XR ---
EXAMINATION TYPE: XR KUB DATE OF EXAM: 12/01/2024 6:20 AM COMPARISON: 10/19/2024 CLINICAL INDICATION: Male, 79 years old with history of Bilateral Renal Stone N20.0; PHH, pain TECHNIQUE: One radiographic view of the abdomen was obtained. FINDINGS: A couple calcifications right mid abdomen measuring up to 8 mm. Calcification left mid abdo men measuring 6 mm. Multiple pelvic phleboliths. Gallstones measuring up to 8 mm right paramedian mid abdomen. Unclear if these represent phleboliths or urinary tract stones. Diffuse osteopenia. Nonobst ructive bowel gas pattern. Partially visualized anterograde intramedullary nail and hip screw fixatio n proximal left femur. IMPRESSION: 1. Bilateral nephrolithiasis measuring up to 8 mm. 2. Right paramedian mid abdominal calcifications measuring up to 8 mm corresponding to gallstones. [facility], Workstation: [facility], 12/01/2024 7:22 AM
[2024-12-01] MEDS ORDERED: fentaNYL (PF) 50 MCG/ML 2 ML AMP ONE (07:25)
[2024-12-01] MEDS ORDERED: SUCCINYLCHOLINE CHLORIDE 200 MG/10 ML VIAL IV ONE (07:25)
[2024-12-01] MEDS ORDERED: LIDOCAINE 1% INJ 10MG/ML (20 ML MDV) ONE (07:25)
[2024-12-01] MEDS ORDERED: ETOMIDATE 2 MG/ML 10 ML VIAL ONE (07:25)
[2024-12-01] MEDS: IOHEXOL 350 MG/ML 100 ML in EMPTY BAG 1 BAG IRRIGATION ONE (08:31)
--- NOTE | 2024-12-01 08:58 | FL ---
EXAMINATION TYPE: FL guidance operating room DATE OF EXAM: 12/01/[address] Raymond for bilateral stones 21.8 sec fluoro time .[id number] DAP 3 images saved LC 3 images are submitted. [facility], , 12/01/2024 8:55 AM
[2024-12-01 09:05] VITALS: TEMP 97.5
--- NOTE | 2024-12-01 09:17 | P.OP ---
Date of Procedure: 12/01/24 Preoperative Diagnosis: Bilateral renal stone Postoperative Diagnosis: Same Procedure(s) Performed: Cystoscopy bilateral ureteroscopy, lithotripsy, stone basketing and stent insertion Implants: 6 [place] Islander by 26 cm stents in the bilateral ureters Anesthesia: REJI Surgeon: Denis Raymond Estimated Blood Loss (ml): 10 Pathology: other (Left renal stone) Condition: stable Disposition: PACU Indications for Procedure: This is a 79-year-old male with history of bilateral renal stone, some measuring 7 mm in the right renal pelvis and 6 mm in the left kidney. He is symptomatic from his right sided renal stone. At this time he would like to address both of his stones. Option of bilateral ureteroscopy with holmium laser was discussed. He was aware of the risk which include but not limited to bleeding, infection, injury to the ureter. Risk of anesthesia was also discussed. He understood all the risk and agreed to proceed Operative Findings: 2 large stone in the renal pelvis on the right side, left-sided midpole stone Description of Procedure: Patient brought to the operating room, general anesthesia was induced. He was prepped and draped in sterile fashion and placed in a dorsolithotomy position. Cystoscopy fitted through the 21 [place] Islander sheath was inserted per urethra, cystoscopy was performed which showed no abnormality within the bladder, of note patient's bladder was heavily trabeculated there were multiple tic's, but no abnormalities were seen. The prostate was mildly enlarged and occlusive. At this point attention was carried to the right side which was intubated with a sensor wire, the wire was advanced under fluoroscopy into the kidney. At this point an 1113 [place] Islander access sheath was passed over the wire into the proximal ureter. The flexible ureteroscope was inserted through the access sheath, I attempted to pass the scope past the proximal ureter but it was quite torturous, at this point a sensor wire was advanced through the scope, and the scope was removed with the wire in place. Next I backloaded the scope over the wire and the ureteroscope was advanced under fluoroscopy into the kidney. Using the holmium laser the stone was dusted, of note one of the fragments did migrate to the lower pole, at this point this was basketed into the upper pole and the remaining fragment was dusted, repeat renoscopy showed no sizable fragments or injury to the kidney, on fluoroscopy there is no radiopaque density seen. Pullback ureteroscopy was performed which showed no injury to the ureter or any ureteral stone, as ureteroscope was withdrawn a sensor wire was advanced through. Next a ureteral stent was passed over the wire, the proximal curl visualized on fluoroscopy and the distal curl was visualized using the cystoscope. At this point attention was carried to the contralateral side. The left ureteral orifice was visualized and intubated with a sensor wire, the wire was advanced under fluoroscopy into the kidney. Next an 1113 [place] Islander access sheath was placed over the wire and into the proximal ureter. The flexible ureteroscope was inserted through the access sheath, renoscopy was performed which showed a large stone in the midpole. Using the holmium laser the stone was dusted, sizable fragments were removed using a stone basket. Repeat renoscopy showed no sizable fragments or injury to the kidney. On fluoroscopy there was no radiopaque density seen. Pullback ureteroscopy was performed showed no injury to the ureter and ureteral stone, as ureteroscope was withdrawn a sensor wire was advanced through. Next a ureteral stent was passed over the wire, the proximal curl was was lysed on fluoroscopy and the distal curl was was seen using the cystoscope. The bladder was emptied at the end of the case. Patient tolerated procedure well was taken to recovery stable condition
[2024-12-01 10:24] VITALS: PULSE 69
[2024-12-01 10:50] VITALS: BP 131/80
== END 2024-12-01 11:14 | disposition home or self-care (01) ==
LOC: OR 05:56
PROVIDERS: ATTEND Urology
DX: N20.0 Calculus of kidney (principal); K21.9 Gastro-esophageal reflux disease without esophagitis; I48.91 Unspecified atrial fibrillation; I10 Essential (primary) hypertension; E78.5 Hyperlipidemia, unspecified; F12.90 Cannabis use, unspecified, uncomplicated; M19.90 Unspecified osteoarthritis, unspecified site; Z90.49 Acquired absence of other specified parts of digestive tract; Z87.891 Personal history of nicotine dependence; Z86.59 Personal history of other mental and behavioral disorders; Z82.49 Family history of ischemic heart disease and other diseases of the circulatory system; Z79.01 Long term (current) use of anticoagulants; Z79.82 Long term (current) use of aspirin; Z79.899 Other long term (current) drug therapy
CPT/HCPCS: 82365; 74018; 52356; C2625; C1769; J0330; J1100; J0690; J2405; J2003; J3010; Q9967

== ENCOUNTER 2024-12-06 08:14 | Emergency (ER) | payer MEDICARE, BC ==
[2024-12-06 08:24] VITALS: TEMP 97.6
[2024-12-06 08:47] LABS: Basophils # (A) 0.05 10*3/uL (0.00-0.10); Basophils % (A) 0.5 %; Eosinophils # (A) 0.14 10*3/uL (0.04-0.35); Eosinophils % (A) 1.5 %; HCT 40.3 % (39.6-50.0); HGB 14.2 g/dL (13.0-17.0); Lymphocytes # (A) 1.28 10*3/uL (0.90-5.00); Lymphocytes % (A) 13.8 %; MCH 34.2 pg (27.0-32.0); MCHC 35.2 g/dL (32.0-37.0); MCV 97.1 fL (80.0-97.0); Mean Platelet Volume 11.8 fL (9.5-12.2); Monocytes # (A) 0.73 10*3/uL (0.20-1.00); Monocytes % (A) 7.9 %; Neutrophils % (A) 75.5 %; Platelet Count 160 10*3/uL (140-440); RBC 4.15 10*6/uL (4.40-5.60); RDW 13.2 % (11.5-14.5); WBC 9.27 10*3/uL (4.50-10.00)
--- NOTE | 2024-12-06 08:47 | ED ---
General Adult HPI - General Chief complaint: GI Bleed Stated complaint: Rectal Bleeding Time Seen by Provider: 12/06/24 08:26 Source: patient Mode of arrival: EMS Limitations: no limitations - History of Present Illness Initial comments: Dictation was produced using [employer] dictation software. please excuse any grammatical, word or spelling errors. Chief Complaint: 79-year-old male anticoagulation medication presents to the ER for. Blood per rectum History of Present Illness: Patient 79-year-old male takes Eliquis for A-fib. States that this morning woke up with bright red blood per rectum. Patient has no other complaints. He had only 1 mild movement that was bright and bloody. No abdominal pain. No rectal pain. The ROS documented in this emergency department record has been reviewed and confirmed by me. Those systems with pertinent positive or negative responses have been documented in the HPI. All other systems are other negative and/or noncontributory. - Related Data Home Medications Medication Instructions Recorded Confirmed Atorvastatin [Lipitor] 40 mg PO DAILY 11/01/23 12/01/24 Escitalopram [Lexapro] 5 mg PO HS 07/09/24 12/01/24 Amiodarone [Cordarone] 200 mg PO DAILY 07/23/24 12/01/24 Isosorbide Mononitrate ER [Imdur] 15 mg PO DAILY 07/23/24 12/01/24 Aspirin [Adult Low Dose Aspirin EC] 81 mg PO QAM 08/05/24 12/01/24 Apixaban [Eliquis] 2.5 mg PO BID 11/27/24 12/01/24 Levothyroxine Sodium 50 mcg PO DAILY 11/27/24 12/01/24 Metoprolol Succinate [Metoprolol 25 mg PO BID 11/27/24 12/01/24 Succinate ER] Multivitamins, Thera [Multivitamin 1 tab PO DAILY 11/27/24 12/01/24 (formulary)] Previous Rx's Medication Instructions Recorded Famotidine [Pepcid] 20 mg PO BID #60 tab 07/11/24 Sacubitril/Valsartan [Entresto 24 0.5 each PO BID #60 tab 07/11/24 mg-26 mg Tablet] Cephalexin [Keflex] 500 mg PO Q8HR #15 cap 06/24/25 Ketorolac [Toradol] 10 mg PO Q6HR PRN #10 tab 12/01/24 Allergies Allergy/AdvReac Type Severity Reaction Status Date / Time No Known Allergies Allergy Verified 12/01/24 06:46 Review of Systems ROS Statement: Those systems with pertinent positive or pertinent negative responses have been documented in the HPI. ROS Other: All systems not noted in ROS Statement are negative. Past Medical History Past Medical History: Atrial Fibrillation, Hyperlipidemia, Hypertension, Osteoarthritis (OA), Skin Disorder Additional Past Medical History / Comment(s): dry skin on right leg. Pt seen in 07/26/2024 for blood in the urine History of Any Multi-Drug Resistant Organisms: None Reported Past Surgical History: Appendectomy, Orthopedic Surgery Additional Past Surgical History / Comment(s): left femur surg with rods x2 Past Anesthesia/Blood Transfusion Reactions: No Reported Reaction Past Psychological History: Depression Smoking Status: Former smoker - Past Family History Father Family Medical History: Myocardial Infarction ([place]) Mother Family Medical History: Cancer Additional Family Medical History / Comment(s): Pancreatic Sister(s) Family Medical History: Cancer Additional Family Medical History / Comment(s): Pancreatic General Exam - General Exam Comments Initial Comments: PHYSICAL EXAM: General Impression: Alert and oriented x3, not in acute distress HEENT: Normocephalic atraumatic, extra-ocular movements intact, pupils equal and reactive to light bilaterally, mucous membranes moist. Cardiovascular: Heart regular rate and rhythm Chest: Able to complete full sentences, no retractions, no tachypnea Abdomen: abdomen soft, non-tender, non-distended, no organomegaly Musculoskeletal: Pulses present and equal in all extremities, no peripheral edema Motor: no focal deficits noted Neurological: CN II-XII grossly intact, no focal motor or sensory deficits noted Skin: Intact with no visualized rashes Psych: Normal affect and mood Rectal exam: Some residue of bright blood on digital rectal exam Limitations: no limitations Course Vital Signs 12/06/24 12/06/24 08:19 08:23 Temperature 97.6 F Pulse Rate 72 84 Respiratory 20 16 Rate Blood Pressure 98/73 90/70 O2 Sat by Pulse 97 98 Oximetry Medical Decision Making - Medical Decision Making Was pt. sent in by a medical professional or institution (, PA, OCCUPATIONAL THERAPY DIRECTOR, urgent care, hospital, or usp...) When possible be specific @ -No Did you speak to anyone other than the patient for history (EMS, parent, family, police, friend...)? What history was obtained from this source @ -No Did you review nursing and triage notes (agree or disagree)? Why? @ -I reviewed and agree with nursing and triage notes Were old charts reviewed (outside hosp., previous admission, EMS record, old EKG, old radiological studies, urgent care reports/EKG's, usp records)? Report findings @ -No old charts were reviewed Differential Diagnosis (chest pain, altered mental status, abdominal pain women, abdominal pain men, vaginal bleeding, musculoskeletal, weakness, fever, dyspnea, syncope, headache, dizziness, GI bleed, back pain, seizure, CVA, palpatations, mental health)? @ -Differential GI Bleed: Esophageal varices, aortoenteric fistula, Patria-Harrison, gastritis, peptic ulcer disease, diverticulosis, inflammatory bowel disease, hemorrhoids, fissure, colitis, malignancy, Meckel's diverticulum, this is not meant to be an all- inclusive list. EKG interpreted by me (3pts min.). @ -See above X-rays interpreted by me (1pt min.). @ -None done CT interpreted by me (1pt min.). @ -None done U/S interpreted by me (1pt. min.). @ -None done What testing was considered but not performed or refused? (CT, X-rays, U/S, labs)? Why? @ -None What meds were considered but not given or refused? Why? @ -None Was smoking cessation discussed for >3mins.? @ -No Were there social determinants of health that impacted care today? How? (Homelessness, low income, unemployed, alcoholism, drug addiction, transport ation, low edu. Level, literacy, decrease access to med. care, custodial, rehab)? @ -No Was there de-escalation of care discussed even if they declined (Discuss DNR or withdrawal of care, Hospice)? DNR status @ -No What co-morbidities impacted this encounter? (DM, HTN, Smoking, COPD, CAD, Cancer, CVA, ARF, Chemo, Hep., AIDS, mental health diagnosis, sleep apnea, morbid obesity)? @ -Anticoagulation use Was patient admitted / discharged? Hospital course, mention meds given and route, prescriptions, significant lab abnormalities, going to OR and other pertinent info. @ -79-year-old male presents to the emergency department for bright red blood per rectum. Vital signs shows soft blood pressure of 98/73. Physical examination is benign. Patient does have blood in his rectum. Laboratory evaluation obtained. Hemoglobin stable. Rest of labs unremarkable except for stool occult blood positive. Patient blood pressure improved with fluids. Given Protonix will be admitted we do have GI availability tomorrow. Did you discuss the management of the patient with other professionals (professionals i.e. , PA, OCCUPATIONAL THERAPY DIRECTOR, lab, RT, psych nurse, healthcare social worker, residential treatment staff, teacher, real estate utilization officer, case loader operator)? Give summary @ -Case discussed with hospitalist for admission Was critical care preformed (if so, how long)? @ -No Undiagnosed new problem with uncertain prognosis? @ -No Drug Therapy requiring intensive monitoring for toxicity (Heparin, Nitro, Insulin, Cardizem)? @ -No Were any procedures done? @ -No Diagnosis/symptom? Acute, or Chronic, or Acute on Chronic? Uncomplicated (without systemic symptoms) or Complicated (systemic symptoms)? @ -GI bleed Side effects of treatment? @ -No Exacerbation, Progression, or Severe Exacerbation? @ -No Poses a threat to life or bodily function? How? (Chest pain, [place], [place], pneumonia, PE, COPD, DKA, ARF, appy, cholecystitis, CVA, Diverticulitis, Homicidal, Suicidal, threat to staff... and all critical care pts) @ -Yes - Lab Data Result diagrams: 12/06/24 08:30 12/06/24 08:30 Lab Results 12/06/24 12/06/24 12/06/24 Range/Units 08:30 08:30 08:30 WBC 9.27 (4.50-10.00) 10*3/uL RBC 4.15 L (4.40-5.60) 10*6/uL Hgb 14.2 (13.0-17.0) g/dL Hct 40.3 (39.6-50.0) % MCV 97.1 H (80.0-97.0) fL MCH 34.2 H (27.0-32.0) pg MCHC 35.2 (32.0-37.0) g/dL Plt Count 160 (140-440) 10*3/uL MPV 11.8 (9.5-12.2) fL Immature Gran % (Auto) 0.8 % Neutrophils % 75.5 % Lymphocytes % 13.8 % Monocytes % 7.9 % Eosinophils % 1.5 % Basophils % 0.5 % Immature Gran # 0.07 H (0.00-0.04) 10*3/uL Neutrophils # 7.00 (1.80-7.70) 10*3/uL Lymphocytes # 1.28 (0.90-5.00) 10*3/uL Monocytes # 0.73 (0.20-1.00) 10*3/uL Eosinophils # 0.14 (0.04-0.35) 10*3/uL Basophils # 0.05 (0.00-0.10) 10*3/uL PT 15.2 H (10.0-12.5) sec INR 1.5 H (<1.2) APTT 27.8 (22.0-30.0) sec Sodium 135 L (137-145) mmol/L Potassium 5.0 (3.5-5.1) mmol/L Chloride 103 (98-107) mmol/L Carbon Dioxide 25 (22-30) mmol/L Anion Gap 7 mmol/L BUN 28 H (9-20) mg/dL Creatinine 0.98 (0.66-1.25) mg/dL Est GFR (CKD-EPI)AfAm 85 (>60 ml/min/1.73 sqM) Est GFR (CKD-EPI)NonAf 74 (>60 ml/min/1.73 sqM) Glucose 152 H (74-99) mg/dL Calcium 8.6 (8.4-10.2) mg/dL Total Bilirubin 1.7 H (0.2-1.3) mg/dL AST 95 H (17-59) U/L ALT 58 H (4-49) U/L Alkaline Phosphatase 113 (38-126) U/L Total Protein 6.6 (6.3-8.2) g/dL Albumin 3.7 (3.5-5.0) g/dL Stool Occult Blood (Negative) Blood Type Blood Type Confirm Blood Type Recheck Bld Type Recheck Status Antibody Screen Spec Expiration Date 06/29/25 06/29/25 06/29/25 Range/Units 08:30 08:34 08:34 WBC (4.50-10.00) 10*3/uL RBC (4.40-5.60) 10*6/uL Hgb (13.0-17.0) g/dL Hct (39.6-50.0) % MCV (80.0-97.0) fL MCH (27.0-32.0) pg MCHC (32.0-37.0) g/dL Plt Count (140-440) 10*3/uL MPV (9.5-12.2) fL Immature Gran % (Auto) % Neutrophils % % Lymphocytes % % Monocytes % % Eosinophils % % Basophils % % Immature Gran # (0.00-0.04) 10*3/uL Neutrophils # (1.80-7.70) 10*3/uL Lymphocytes # (0.90-5.00) 10*3/uL Monocytes # (0.20-1.00) 10*3/uL Eosinophils # (0.04-0.35) 10*3/uL Basophils # (0.00-0.10) 10*3/uL PT (10.0-12.5) sec INR (<1.2) APTT (22.0-30.0) sec Sodium (137-145) mmol/L Potassium (3.5-5.1) mmol/L Chloride (98-107) mmol/L Carbon Dioxide (22-30) mmol/L Anion Gap mmol/L BUN (9-20) mg/dL Creatinine (0.66-1.25) mg/dL Est GFR (CKD-EPI)AfAm (>60 ml/min/1.73 sqM) Est GFR (CKD-EPI)NonAf (>60 ml/min/1.73 sqM) Glucose (74-99) mg/dL Calcium (8.4-10.2) mg/dL Total Bilirubin (0.2-1.3) mg/dL AST (17-59) U/L ALT (4-49) U/L Alkaline Phosphatase (38-126) U/L Total Protein (6.3-8.2) g/dL Albumin (3.5-5.0) g/dL Stool Occult Blood Positive (Negative) Blood Type O Positive Blood Type Confirm O Positive Blood Type Recheck No Previous Record Bld Type Recheck Status CABO Indicated Antibody Screen NEGATIVE Spec Expiration Date 12/09/20242329 Disposition Clinical Impression: GI bleed Disposition: ADMITTED IP TO THIS [facility] Condition: Fair Referrals: Denis Raymond MD [STAFF PHYSICIAN] - 1-2 days Decision Time: 10:12
[2024-12-06 08:58] LABS: ALT 58 U/L (4-49); AST 95 U/L (17-59); African American GFR (CKD) 85 (>60 ml/min/1.73 sqM); Albumin 3.7 g/dL (3.5-5.0); Alkaline Phosphatase 113 U/L (38-126); Anion Gap 7 mmol/L; Blood Urea Nitrogen 28 mg/dL (9-20); Calcium 8.6 mg/dL (8.4-10.2); Carbon Dioxide 25 mmol/L (22-30); Chloride 103 mmol/L (98-107); Glucose 152 mg/dL (74-99); Non-African American GFR(CKD) 74 (>60 ml/min/1.73 sqM); Sodium 135 mmol/L (137-145); Total Bilirubin 1.7 mg/dL (0.2-1.3); Total Protein 6.6 g/dL (6.3-8.2)
[2024-12-06 09:03] LABS: INR 1.5 (<1.2); Partial Thromboplastin Time 27.8 sec (22.0-30.0); Prothrombin Time 15.2 sec (10.0-12.5)
[2024-12-06] MEDS: PANTOPRAZOLE 40 MG/10 ML VIAL IVP STA (09:27)
[2024-12-06] MEDS: SODIUM CHLORIDE 0.9% 1,000 ML IV STA (09:28)
[2024-12-06] MEDS ORDERED: NALOXONE 0.4 MG/ML 1 ML VIAL IV PRN (10:08)
[2024-12-06] MEDS: SODIUM CHLORIDE 0.9% 1,000 ML IV SCH (10:30)
[2024-12-06] MEDS ORDERED: Kcentra / Balfaxar PER PHARMACY 1 EACH MISC MISCELLANE PRN (13:33)
--- NOTE | 2024-12-06 13:33 | ED ---
Medical Decision Making - Medical Decision Making Patient was seen and evaluated by hospitalist did not feel that patient was amenable for admission to our hospital due to GI bleeding he had some bouts of GI bleed here in the ER boarding for the floor. Patient be transferred to outside hospital. According to the hospitalists because we do not have GI until the morning of tomorrow. Patient care was accepted by Dr. Crareno and Dr. Ayala for transfer - Lab Data Result diagrams: 12/06/24 08:30 12/06/24 08:30 Lab Results 12/06/24 12/06/24 12/06/24 Range/Units 08:30 08:30 08:30 WBC 9.27 (4.50-10.00) 10*3/uL RBC 4.15 L (4.40-5.60) 10*6/uL Hgb 14.2 (13.0-17.0) g/dL Hct 40.3 (39.6-50.0) % MCV 97.1 H (80.0-97.0) fL MCH 34.2 H (27.0-32.0) pg MCHC 35.2 (32.0-37.0) g/dL Plt Count 160 (140-440) 10*3/uL MPV 11.8 (9.5-12.2) fL Immature Gran % (Auto) 0.8 % Neutrophils % 75.5 % Lymphocytes % 13.8 % Monocytes % 7.9 % Eosinophils % 1.5 % Basophils % 0.5 % Immature Gran # 0.07 H (0.00-0.04) 10*3/uL Neutrophils # 7.00 (1.80-7.70) 10*3/uL Lymphocytes # 1.28 (0.90-5.00) 10*3/uL Monocytes # 0.73 (0.20-1.00) 10*3/uL Eosinophils # 0.14 (0.04-0.35) 10*3/uL Basophils # 0.05 (0.00-0.10) 10*3/uL PT 15.2 H (10.0-12.5) sec INR 1.5 H (<1.2) APTT 27.8 (22.0-30.0) sec Sodium 135 L (137-145) mmol/L Potassium 5.0 (3.5-5.1) mmol/L Chloride 103 (98-107) mmol/L Carbon Dioxide 25 (22-30) mmol/L Anion Gap 7 mmol/L BUN 28 H (9-20) mg/dL Creatinine 0.98 (0.66-1.25) mg/dL Est GFR (CKD-EPI)AfAm 85 (>60 ml/min/1.73 sqM) Est GFR (CKD-EPI)NonAf 74 (>60 ml/min/1.73 sqM) Glucose 152 H (74-99) mg/dL Calcium 8.6 (8.4-10.2) mg/dL Total Bilirubin 1.7 H (0.2-1.3) mg/dL AST 95 H (17-59) U/L ALT 58 H (4-49) U/L Alkaline Phosphatase 113 (38-126) U/L Total Protein 6.6 (6.3-8.2) g/dL Albumin 3.7 (3.5-5.0) g/dL Stool Occult Blood (Negative) Blood Type Blood Type Confirm Blood Type Recheck Bld Type Recheck Status Antibody Screen Spec Expiration Date 12/06/24 12/06/24 12/06/24 Range/Units 08:30 08:34 08:34 WBC (4.50-10.00) 10*3/uL RBC (4.40-5.60) 10*6/uL Hgb (13.0-17.0) g/dL Hct (39.6-50.0) % MCV (80.0-97.0) fL MCH (27.0-32.0) pg MCHC (32.0-37.0) g/dL Plt Count (140-440) 10*3/uL MPV (9.5-12.2) fL Immature Gran % (Auto) % Neutrophils % % Lymphocytes % % Monocytes % % Eosinophils % % Basophils % % Immature Gran # (0.00-0.04) 10*3/uL Neutrophils # (1.80-7.70) 10*3/uL Lymphocytes # (0.90-5.00) 10*3/uL Monocytes # (0.20-1.00) 10*3/uL Eosinophils # (0.04-0.35) 10*3/uL Basophils # (0.00-0.10) 10*3/uL PT (10.0-12.5) sec INR (<1.2) APTT (22.0-30.0) sec Sodium (137-145) mmol/L Potassium (3.5-5.1) mmol/L Chloride (98-107) mmol/L Carbon Dioxide (22-30) mmol/L Anion Gap mmol/L BUN (9-20) mg/dL Creatinine (0.66-1.25) mg/dL Est GFR (CKD-EPI)AfAm (>60 ml/min/1.73 sqM) Est GFR (CKD-EPI)NonAf (>60 ml/min/1.73 sqM) Glucose (74-99) mg/dL Calcium (8.4-10.2) mg/dL Total Bilirubin (0.2-1.3) mg/dL AST (17-59) U/L ALT (4-49) U/L Alkaline Phosphatase (38-126) U/L Total Protein (6.3-8.2) g/dL Albumin (3.5-5.0) g/dL Stool Occult Blood Positive (Negative) Blood Type O Positive Blood Type Confirm O Positive Blood Type Recheck No Previous Record Bld Type Recheck Status CABO Indicated Antibody Screen NEGATIVE Spec Expiration Date 12/09/20242329 Disposition Clinical Impression: GI bleed Disposition: ADMITTED IP TO THIS [facility] Condition: Fair
[2024-12-06 14:07] VITALS: PULSE 75; RESP 20
[2024-12-06 15:06] VITALS: BP 96/65
--- NOTE | 2024-12-06 21:00 | CONS ---
CONSULTATION CHIEF COMPLAINT: Rectal bleeding. HISTORY OF PRESENT ILLNESS: This 79-year-old gentleman with a past medical history of multiple problems, recently had urological surgery. Subsequently, the patient had hematuria and currently the family also noticed the patient has significant rectal bleeding and the patient is on Eliquis, which was restarted, his hemoglobin is 14.2. We do not have GI available credit consultant today, so I have recommended to the ER physician to transfer the patient for further evaluation and treatment because of the significant amount of blood noted in the toilet at this time. There is no history of fever, rigors, chills. PAST MEDICAL HISTORY: History of recent urological surgery, history of atrial fibrillation, hypertension, hyperlipidemia. Rest of the history and chart is also reviewed. HOME MEDICATIONS: Reviewed include Entresto. Dose and rest of medication reviewed. ALLERGIES: None. FAMILY HISTORY: No history of myocardial infarction. SOCIAL HISTORY: Previous history of smoking. REVIEW OF SYSTEMS: A 14-point review of systems is negative, except as mentioned earlier. PHYSICAL EXAMINATION: VITAL SIGNS: Pulse is 75, blood pressure 94/60, and respirations 20. HEENT: Conjunctivae pale. NECK: No jugular venous distention. CARDIOVASCULAR: S1, S2. ABDOMEN: Soft, nontender. No mass. LEGS: No edema. NERVOUS SYSTEM: Nonfocal. SKIN: No ulcer or rash. LABORATORY DATA: Noted. ASSESSMENT: 1. Acute lower gastrointestinal bleeding for possible diverticular bleed. 2. Hematuria. 3. History of recent cystoscopy, bilateral ureteroscopy, lithotripsy, stone basketing and stent insertion. 4. Hematuria. 5. History of atrial fibrillation. 6. Hypertension. 7. Hyperlipidemia. 8. Multiple complex medical issues. RECOMMENDATIONS AND DISCUSSION: This 79-year-old gentleman presented with multiple medical issues. I would recommend the patient to be transferred for further evaluation and treatment for evaluation by GI for patient will need further investigation including colonoscopy. The blood pressure is also slightly low, I would recommend to continue IV fluids cautiously and continue to monitor. Prognosis guarded. MMODL / IJN: [id number] /
== END 2024-12-06 15:06 | disposition other institution (70) ==
LOC: EC 08:14 → UNDOADMIN 10:08 → 3SCARD 10:08 → 4SSUR 11:01 → EC 15:06
DX: K92.2 Gastrointestinal hemorrhage, unspecified (principal); Z87.891 Personal history of nicotine dependence
CPT/HCPCS: 36415; 93005; 86900; 86901; 80053; 85025; 85610; 85730; 86850; 82272; 99285; 96374; 96375; 96361; J2470; J7165